=== PATIENT | female | born 1955 | race Caucasian/White ===

== ENCOUNTER 2021-12-30 13:34 | Outpatient (CLI) | payer MEDICARE, SELFPAY ==
--- NOTE | 2021-12-30 13:40 | CRLHL7_ITS ---
For Patients: As a result of the Cures Act, medical imaging exams and procedure reports are released immediately into your electronic medical record. You may view this report before your referring provider. If you have questions, please contact your health care provider. BILATERAL SCREENING MAMMOGRAM WITH COMPUTER-AIDED DETECTION AND TOMOSYNTHESIS TECHNIQUE: CC and MLO views were obtained. These mammographic images have been obtained using full-field digital technique. These mammographic images were interpreted with the benefit of computer-aided detection. Breast Tomosynthesis was used in this interpretation. COMPARISON FILM: 12/14/2020, 12/11/2019, 11/07/2018. FINDINGS: The breasts are heterogeneously dense, which may obscure small masses. IMPRESSION: There is no radiographic evidence for malignancy. ASSESSMENT: BI-RADS Category 2: Benign RECOMMENDATION: Routine screening mammogram in 1 year. A lay language report of this examination will be provided to the patient. Melissa Keene M.D. Diagnostic/Breast Radiologist [email or web address] [email or web address]/[email or web address] PT/Dictated by: Melissa Keene MD @ 01/02/2022 8:43:00 AM SLAVA/Dictated by: Melissa Keene MD @ 01/02/2022 8:43:00 AM (Electronically Signed)
== END 2021-12-30 13:35 | disposition home or self-care (01) ==
LOC: MAMMO 13:36
PROVIDERS: Visit Provider Internal Medicine
DX: Z12.31 Encounter for screening mammogram for malignant neoplasm of breast (principal); R92.2 Inconclusive mammogram
CPT/HCPCS: 77063; 77067

== ENCOUNTER 2022-04-10 11:47 | Outpatient (REF) | payer MEDICARE, SELFPAY ==
[2022-04-10 12:03] LABS: Ammonia* < 9.0 umol/L (13.1-30.0)
== END 2022-04-10 11:48 | disposition home or self-care (01) ==
LOC: NPINS 11:47
PROVIDERS: Visit Provider Psychiatry & Neurology Neurology
DX: R25.1 Tremor, unspecified (principal)
CPT/HCPCS: 82140

== ENCOUNTER 2022-04-12 07:04 | Outpatient (CLI) | payer MEDICARE, SELFPAY ==
--- NOTE | 2022-04-12 07:15 | CRLHL7_ITS ---
For Patients: As a result of the 21st Century Cures Act, medical imaging exams and procedure reports are released immediately into your electronic medical record. You may view this report before your referring provider. If you have questions, please contact your health care provider. INDICATION: Tremors. Parkinson`s. TECHNIQUE: Sagittal T1 axial FLAIR T2 diffusion-weighted and susceptibility weighted images of the brain. FINDINGS: Ventricles are normal in size and configuration. There is no evidence of recent ischemic infarction. There are no areas of diffusion restriction. There is no evidence of intracranial hemorrhage. There is a small well-defined extra-axial mass (2.0 cm x 1.5 cm ) at the left posterior frontal convexity with mild mass effect on the left middle frontal gyrus. This extra-axial mass is homogeneous isointense to brain on T1, T2 and slightly brighter than brain on FLAIR sequence most likely a small meningioma. There is no brain edema. Mild mass effect. Basal ganglia structures are unremarkable the brainstem and cerebellum are unremarkable. An additional finding is a well-circumscribed lobulated mass in the retropharyngeal space to the right of midline at the level of the nasopharynx and oropharynx. This mass measures 2.7 cm cephalocaudal by 2.2 cm transverse by 1.9 cm AP. It appears to be submucosal, closely associated with the anterior margin of the longus coli muscle and anteromedial to the internal carotid artery. Appears to be a vessel along its posterior medial margin. There is no evidence of mastoid or middle ear effusion. It probably represents a schwannoma or an enlarged retropharyngeal lymph node. There is opacification of the sphenoid sinus with low T2 and increased T1 signal suggesting chronic inspissated secretions or possible fungal sinus disease. IMPRESSION: 1. No evidence of acute ischemic infarction or intracranial hemorrhage. 2. 2.0 cm. presumed meningioma at the left posterolateral frontal convexity with mild mass effect. No brain edema. 3. Well-circumscribed mass in right retropharyngeal space versus parapharyngeal space. Schwannoma versus enlarged retropharyngeal lymph node. Comparison to any prior CT or MRI scans would be useful if available. Otherwise follow-up MRI in 4-6 months time to assess for stability and ENT consultation recommended. 4. Opacified sphenoid sinus consistent with chronic sinusitis. 5. Gadolinium-enhanced MRI images recommended for further evaluation of finding #2 and #3. Dictated by Buddy Cervantes MD @ 04/12/2022 10:54:19 AM (Electronically Signed)
== END 2022-04-12 07:05 | disposition home or self-care (01) ==
PROVIDERS: PCP Internal Medicine; Visit Provider Psychiatry & Neurology Neurology
DX: G20 Parkinson's disease (principal); D32.0 Benign neoplasm of cerebral meninges; R25.1 Tremor, unspecified; J32.3 Chronic sphenoidal sinusitis
CPT/HCPCS: 70551

== ENCOUNTER 2022-09-12 07:28 | Outpatient (CLI) | payer MEDICARE, SELFPAY | END 2022-09-12 07:29 | disposition home or self-care (01) | LOC: NFLDREF 09-13 07:00 | PROVIDERS: PCP Internal Medicine; Referring Provider Internal Medicine; Visit Provider Internal Medicine | DX: E03.9 Hypothyroidism, unspecified (principal); Z13.21 Encounter for screening for nutritional disorder; G20 Parkinson's disease; M85.80 Other specified disorders of bone density and structure, unspecified site; R00.1 Bradycardia, unspecified | CPT/HCPCS: 82306; 84443 ==

== ENCOUNTER 2022-11-01 13:51 | Outpatient (CLI) | payer MEDICARE, SELFPAY ==
--- NOTE | 2022-11-01 14:00 | CRLHL7_ITS ---
For Patients: As a result of the Century Cures Act, medical imaging exams and procedure reports are released immediately into your electronic medical record. You may view this report before your referring provider. If you have questions, please contact your health care provider. DXA BONE MINERAL DENSITY STUDY Reason for exam: Other specified disorders of bone density. Current height (in): 63. Weight (lb): 136. Menopause age: 47. Ethnicity: White. 1. Have you had a previous hip or vertebral fracture? No. 2. Have you had any fractures during your adult life which did not result from significant trauma (e.g., auto accident)? No. 3. Did either of your parents have a hip fracture? No. 4. Do you smoke? No. 5. Have you ever taken Glucocorticoids? No. 6. Do you have rheumatoid arthritis? No. 7. Do you have secondary osteoporosis? No. 8. Do you drink 3 or more alcoholic drinks per day? No. 9. Are you being treated for osteoporosis? Yes. 10. Have you ever taken any of the following medications: Actonel, Evista, Fosamax, Miacalcin, Reclast, Boniva, Forteo, HRT (i.e., estrogen/hormone therapy), Protelos, Prolia, Vitamin D, Calcium, other ??? please specify. ANSWER: Yes, Fosamax. 11. Do you have any of the following medical conditions: Anorexia or bulimia, asthma or emphysema, end stage renal disease, hyperparathyroidism, any seizure disorders, cancer, inflammatory bowel diseases, hysterectomy, other ??? please specify. ANSWER: No. 12. What was your maximum height (inches)? 63. 13. Do you perform weight bearing exercise regularly? Yes. 14. Do you regularly consume dairy products? Yes. 15. Do you drink caffeinated beverages? Yes. If female: 16. At what age did your period start? 16. 17. Are you premenopausal? No. 18. How many full-term pregnancies have you had? 2. 19. Have you ever missed your period for more than 6 months in a row (not including or menopause)? Yes. TECHNIQUE: Bone mineral density study was performed using the [employer] Wi. FINDINGS: The results of the study expressed as bone mineral density (BMD) are as follows: Lumbar spine L1 to L4: BMD: 0.871 g/cm2. T-score: -1.6. Z-score: 0.3 Neck Left: BMD: 0.669 g/cm2. T-score: -1.6. Z-score: 0.0 Right: BMD: 0.714 g/cm2. T-score: -1.2. Z-score: 0.4 Total Left: BMD: 0.871 g/cm2. T-score: -0.6. Z-score: 0.7 Right: BMD: 0.975 g/cm2. T-score: 0.3. Z-score: 1.6 IMPRESSION: Osteopenia. *Comparison exams done prior to 09/2019 were performed on different unit, [employer]. COMPARISON: Compared with scan of 11/24/2020, the bone mineral density has increased by 0.7 percent at the spine and increased by 7.2 percent at the hip. Compared with scan of 10/23/2016, the bone mineral density has increased by 6.6 percent at the spine and increased by 6.5 percent at the hip. Fabian Sky M.D. Diagnostic Radiologist [email or web address] TIMO/haley de leon/Dictated by: Fabian Sky MD @ 11/01/2022 3:45:00 PM (Electronically Signed)
== END 2022-11-01 13:52 | disposition home or self-care (01) ==
LOC: RAD 13:52
PROVIDERS: PCP Internal Medicine; Visit Provider Internal Medicine
DX: M85.851 Other specified disorders of bone density and structure, right thigh (principal); M85.852 Other specified disorders of bone density and structure, left thigh; M85.89 Other specified disorders of bone density and structure, multiple sites
CPT/HCPCS: 77080

== ENCOUNTER 2023-01-08 11:21 | Outpatient (CLI) | payer MEDICARE, SELFPAY ==
--- NOTE | 2023-01-08 11:30 | CRLHL7_ITS ---
For Patients: As a result of the Century Cures Act, medical imaging exams and procedure reports are released immediately into your electronic medical record. You may view this report before your referring provider. If you have questions, please contact your health care provider. BILATERAL SCREENING MAMMOGRAM WITH COMPUTER-AIDED DETECTION AND TOMOSYNTHESIS TECHNIQUE: CC and MLO views were obtained. These mammographic images have been obtained using full-field digital technique. These mammographic images were interpreted with the benefit of computer-aided detection. Breast tomosynthesis was used in this interpretation. COMPARISON FILM: 12/30/21, 12/14/20, 12/11/19. FINDINGS: There are scattered areas of fibroglandular density. IMPRESSION: There is no radiographic evidence for malignancy. ASSESSMENT: BI-RADS Category 1: Negative RECOMMENDATION: Routine screening mammogram in 1 year. A lay language report of this examination will be provided to the patient. FABIAN CARDENAS M.D. Diagnostic Radiologist [email or web address] Transcribed: 4:[address]/Dictated by: Fabian Cardenas MD @ 01/08/2023 12:23:00 PM (Electronically Signed)
== END 2023-01-08 11:22 | disposition home or self-care (01) ==
PROVIDERS: PCP Internal Medicine; Visit Provider Internal Medicine
DX: Z12.31 Encounter for screening mammogram for malignant neoplasm of breast (principal)
CPT/HCPCS: 77063; 77067

== ENCOUNTER 2023-09-20 15:18 | Outpatient (CLI) | payer MEDICARE, SELFPAY ==
--- OUTSIDE RECORDS SUMMARY | 2023-09-24 14:37 | XMS_ITS | Continuity of Care Document ---
Author Organization [facility] Address [address] [place] [address] Phone Care Team Providers Care Breakfast Supervisor Name Role Phone Lissette Lee MD Unavailable Unavailable Allergies, Adverse Reactions, Alerts Substance Reaction Status Criticality No Known allergies Medications Medication Instructions Dosage Effective Dates (start - stop) Status Comments ursodiol 300 mg capsule 2 tablets twice daily - Active Tirosint 75 mcg capsule take 1 capsule by oral route every day 75 MCG - Active Procedures Procedure Date Office/Outpatient Visit, New Subsequent Hospital Care Initial Hospital Care Advance Directives Directive Yes / No Effective Date File Name No Information Encounters Encounter Description Practice Location Reason(s) For Visit Diagnoses Date Provider Providers Copied on Encounter [facility] , [address], [place], [address], [place] tel:[phone] [facility] , No Information 4 Jesus Mclaughlin. [facility] [address], [place], [address], [place]. tel:[phone] Office/Outpa tient Visit, New [facility] , [address], [place], [address], [place] tel:[phone] [facility] , suspected vasculitis (chief complaint) Arteritis, unspecifiedO ther specified disorders of biliary tract 4 Jesus Mclaughlin. [facility] [address], [place], [address], [place]. tel:[phone] Referring Provider: Lissette Adames, [facility] [address], [place], [address]. tel:[phone] Subsequent Hospital Care [facility] , [address], [place], [address], [place] tel:[phone] [facility] No Information 4 Moi Ramirez. [facility] [address], [place], [address], [place]. tel:[phone] Referring Provider: Ashley Avila, [facility] [address], [place], [address]. tel:[phone] Initial Hospital Care [facility] , [address], [place], [address], [place] tel:[phone] [facility] No Information 4 Jesus Mclaughlin. [facility] [address], [place], [address], [place]. tel:[phone] Referring Provider: Lissette Adames, [facility] [address], [place], [address]. tel:[phone] Family History Family Member Type Diagnosis Age At Onset No Information Payers Payer name Insurance type Covered libertarian ID Authorsteven lind(s) [facility] [id number] Social History Type Description Quantity Date Captured Comments Sex Female Smoking Status No Information Chief Complaint And Reason For Visit No Information Reason For Referral Reason For Referral No Information History Of Present Illness Encounter Date Complaint History Of Prese nt Illness No Information Functional Status Date Functional Assessmen t No Information Instructions Date Instruction Additional Infor mation No Information Assessments Type Assessment Date No Information Patient Care Teams Name Effective Dates (start - stop) Status Members No Information
--- OUTSIDE RECORDS SUMMARY | 2023-09-24 14:38 | XMS_ITS | Encounter Summary ---
Author Organization [facility] Address [address] [place] [address] Care Team Providers Care Certified Alcohol Counselor Name Role Phone Elsewhere, Pcp Primary Care Provider Unavailabl e Reason for Visit * Appointment Request (Routine) - Closed Specialty Diagnoses / Procedures Referred By Magno t Referred To Contact Neurology Diagnoses Parkinsonism (HCC) Referral ID Status Reason Start Date Expiration Date Visits Re quested Visits Authorized [id number] Closed 04/04/2023 04/03/2024 1 1 Encounter Details Date Type Department Care Team (Latest Contact Info) Description 07/24/2023 2:30 PM CDT Comprehensive Visit Department of Neurology in [place], [place] [address] [place] [phone] Riri Harding M.D., Ph.D. [address] [place] [phone] Parkinsonism Unspecified (HCC) (Primary Dx) Social History Tobacco Use Types Packs/Day Years Used Date Smoking Tobacco: Never Passive Smoke Exposure: Past Smokeless Tobacco: Never Passive Exposure Comments:Ch ildhood exposure. Alcohol Use Standard Drinks/Week Comments Not Currently 0 (1 standard drink = 0.6 oz pur e alcohol) [facility] Utilities Answer Date Recorded In the past 12 months has e electric, gas, oil, or water company threatened to shut off services in your home? No 07/20/2023 Humiliation, Afraid, Rape, and Kick questionnair e Answer Date Recorded Within the last year, have y ou been afraid of your partner or ex-partner? No 08/26/2022 Within the last year, have y ou been humiliated or emotionally abused in other ways by your partner or ex-partner? No Within the last year, have y ou been kicked, hit, slapped, or otherwise physically hurt by your partner or ex-partner? No 08/26/2022 Within the last year, have y ou been raped or forced to have any kind of sexual activity by your partner or ex-partner? No 08/26/2022 Social Connection and Isolat ion Panel [NHANES] Answer Date Recorded In a typical week, how many times do you talk on the phone with family, friends, or neighbors? Once a week 04/04/2022 How often do you get togethe r with friends or relatives? Once a week 04/04/2022 How often do you attend chur ch or zoroastrian services? More than 4 times per year 04/04/2022 Do you belong to any clubs o r organizations such as bahai groups, unions, fraternal or athletic groups, or school groups? Yes 04/04/2022 How often do you attend meet ings of the clubs or organizations you belong to? More than 4 times per year 04/04/2022 Are you , , di vorced, , never , or living with a partner? 04/04/2022 AUDIT-C Answer Date Recorded Q1: How often do you have a drink containing alc ohol? Never 04/04/2022 Average Number of Drinks Not on file 023 Frequency of Binge Drinking Not on file 05/2022 Overall Financial Resource Strain (CARDIA) Answe r Date Recorded How hard is it for you to pa y for the very basics like food, housing, medical care, and heating? Not hard at all 08/26/2022 [facility] [place] of Occupat ional Health - Occupational Stress Questionnaire Answer Date Recorded Do you feel stress - tense, restless, nervous, or anxious, or unable to sleep at night because your mind is troubled all the time - these days? Only a little 04/04/2022 Exercise Vital Sign Answer Date Recorde d On average, how many days pe r week do you engage in moderate to strenuous exercise (like a brisk walk)? 7 days 07/20/2023 On average, how many minutes do you engage in exercise at this level? 40 min 07/20/2023 Hunger Vital Sign Answer Date Recorded Within the past 12 months, y ou worried that your food would run out before you got the money to buy more. Never true 07/20/19 24 Within the past 12 months, t he food you bought just didn't last and you didn't have money to get more. Never true 07/20/2023 PRAPARE - Transportation Answer Date Re corded In the past 12 months, has l ack of transportation kept you from medical appointments or from getting medications? No 07/01 In the past 12 months, has l ack of transportation kept you from meetings, work, or from getting things needed for daily living? No 07/20/2023 Nutrition Answer Date Recorded On average, how many serving s of fruits and vegetables do you eat per day (serving size is equal to 1 cup or approximately the size of a tennis ball)? 0-2 07/20/2023 Dental Answer Date Recorded Dental: Regular Dentist Yes 03/29/20 Employment Answer Date Recorded Employment status Retired 07/20/2023 Housing Stability Answer Date Recorded What is your living situation today? [facility] 07/20/2023 Education Answer Date Recorded What is the highest level of school you have completed or the highest degree you have received? Bachelor's degree (e.g., BA, AB, BS) 01/13/2019 Sex and Gender Information Value Date Recorded Sex Assigned at Female 01/10/2019 8:43 PM CDT Gender Identity Female 01/10/2019 8:43 PM CDT Sexual Orientation Not on file documented as of this encounter Last Filed Vital Signs Vital Sign Reading Time Taken Comments Blood Pressure 110/69 07/24/2023 2:23 PM CDT Pulse 68 07/24/2023 2:23 PM CDT Temperature - - Respiratory Rate - - Oxygen Saturation - - Inhaled Oxygen Concentration - - Weight 60.2 kg (132 lb 13.2 oz) 07/24/2023 2:23 PM CDT Height 161.8 cm (5' 3.7) 07/24/2023 2:23 PM CDT Body Mass Index 23.01 07/24/2023 2:23 PM CDT documented in this encounter H&P Notes * Riri Harding M.D., Ph.D. - 07/24/2023 2:30 PM CDT Mrs. Yoder came for evaluation of Parkinson's disease. She was diagnosed with that condition and I later found that this diagnosis was made about 15 months ago that I later found, by Dr. Steinberg in [place]. He wrote that at that time, she had a hand tremor and micrographia with a normal gait and no rigidity. She was started on one 25/100 immediate release carbidopa levodopa tablets 3 times aday, which she typically takes with meals. She has noted benefit in the tremor has improved but nottotally resolved. I saw in the note from Dr. Steinberg that she had an uncle with Parkinson's disease. Examination: The front loader residential driver recorded her standing blood pressure and obtain a value of 110/69 with a pulse of 68. I did a focused exam. She would normal facial animation and speech. Eye movements were intact testing both pursuit and voluntary gaze. Limb tone was normal in the 4 extremities. She had a fleeting rest tremor in the right great thumb but I did not see tremor elsewhere. There was no evidence of appendicular ataxia or apraxia. I watched her walk in the hallway and her gait was normal. She had no trouble walking in tandem. There were no dyskinesia. Impression: #1 Parkinson's disease Mrs. Yoder has Parkinson's disease based upon her described symptoms & the note from Dr. Steinberg from April of 2022 plus the fact that she has benefitted from carbidopa levodopa. At this point in time, she is nearly normal. Nonetheless, I had discussion about carbidopa levodopa use and made the following points. Carbidopa levodopa must be taken on an empty stomach to allow passage into the brain. Specifically,it must be taken at least 1 hour before meals and at least 2 hours after the end of meals. She seems to be doing very well on just a single carbidopa levodopa tablet 3 times a day. I gave him my handout for dose escalation but in her case, she is nearly normal at present and so she does not need to escalate the dose any further. This may income tax return preparer to be her dose going forward and she may not need anymore per dose over the years. We will see. She awakens during the night with an uncomfortable feeling in her legs that probably has been present for a few years. This sounded a little bit like restless legs symptoms. She will lie awake for couple of hours when that starts. She does take her 3rd and last carbidopa levodopa dose of the day inthe late evening. I told her that she could add a 4th dose and have that on her nightstand with a glass of water to take when she awakens after midnight. That will take an hour to kick in but that might kick in improve a feeling in her legs. She could then return to sleep. We also discussed constipation. I think the simplest thing for her is to use MiraLax which is already on her medication list. However, she should take enough so that it stimulate a bowel movement within the next 20-30 minutes. At present, 1 serving does not do that. Hence, the next time she uses this she should mix up 2 servings and drink 1-1/2 and see if that is sufficient for a bowel movement. If not, the next day she can mix up 2 servings and drink both of those. We discussed the benefits of ongoing aerobic-type exercise. There is substantial scientific evidence that strongly argues for regular exercise slowing Parkinson's disease progression. documented in this encounter Plan of Treatment Upcoming Encounters Date Type Department Care Team (Latest Contact Info) Description 09/25/2023 2:00 PM CDT Clinical Communication Virtual Review in [place], [place] 200 [place] [phone] 09/27/2023 9:00 AM CDT Appointment Department of Laboratory Medicine and Pathology, [facility], in [place], [place] [address] [place] [phone] Jonathan Richardson M.D. [address] [place] [phone] 09/27/2023 3:00 PM CDT Office Visit Division of Hematology in [address] [phone] Jonathan Richardson M.D. [address] [place] [address] documented as of this encounter Visit Diagnoses Diagnosis Parkinsonism Unspecified (HCC)- Primary documented in this encounter Care Teams Certified Alcohol Counselor Relationship Specialty Start Date End Date Elsewhere, Pcp PCP - General Internal Medicine 12/28/22 documented as of this encounter"
--- OUTSIDE RECORDS SUMMARY | 2023-09-24 14:38 | XMS_ITS | Clinical Summary ---
Author Organization [facility] Address [address] [place] [address] Care Team Providers Care Computer Programming Professor Name Role Phone Elsewhere, Pcp Primary Care Provider Unavailabl e Source Comments Patient records contain information from all sites at [facility]. For routine questions regarding patient records, call [phone] during business hours, M-F 8:00 AM - 5:00 PM Central Time. Record requests for emergency care only can be directed to [phone] at any time.[facility] Allergies No known active allergies Medications Medication Sig Dispensed Refills Start Date End Date Status acetaminophen (TYLENOL) 500 mg tablet Take 500-1,000 mg by mouth every 6 (six) hours as needed for pain. 08/19/2014 Active levothyroxine (SYNTHROID, LEVOTHROID) 75 mcg tablet Take 1 tablet by mouth every morning. 08/19/2014 Active melatonin 10 mg tablet Take 10 mg by mouth at bedtime as needed. Active psyllium husk (METAMUCIL ORAL) Take 1 Dose by mouth daily. Mix 1 tsp of powder with water daily. Active polyethylene glycol (Miralax) 17 gram/dose oral powder Take 17 g by mouth as needed. 04/02/2023 Active folic acid-vitamin B6,B12 (FOLBEE) 2.5-25-1 mg per tablet To prevent homocysteine. Take one tab daily 90 tablet 3 07/24/2023 Active carbidopa-levodopa (SINEMET) 25-100 mg per tablet Take 1 tablet by mouth 3 (three) times a day. 270 tablet 3 08/09/2023 5 Active ursodioL (ActigalL) 300 mg capsuleIndications :Cholestasis Intrahepatic (HCC) take one capsule by mouth three times daily 270 capsule 09/20/2023 Active ursodioL (ACTIGALL) 300 mg capsuleIndications :Cholestasis Intrahepatic (HCC) Take 1 capsule (300 mg total) by mouth 3 times a day. 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 Med Refill 08/08/2023 Refill [facility] Riri Harding M.D., Ph.D. Med Refill 08/06/2023 7:09 AM CDT - 08/06/2023 11:59 PM CDT Hospital Encounter Department of Laboratory Medicine and Pathology, [facility], in [place], [place] [address] [place] [phone] Jonathan Richardson M.D. Gammopathy Monoclonal Nonspecific Discharge Disposition: Home or Self Care 07/24/2023 2:30 PM CDT Comprehensive Visit Department of Neurology in [place], [place] [address] [place] [phone] Riir Harding M.D., Ph.D. Parkinsonism Unspecified (HCC) (Primary Dx) 07/23/2023 7:45 AM CDT Clinical Communication Virtual Review in [place], [place] 200 [place] [address] Pre-visit Intake 06/24/2023 Refill Division of Gastroenterology in [place], [place] [address] [place] [phone] Buddy Ceja M.D. Med Refill from Last 3 Months Family History Medical History Relation Name Comments Uterine cancer Mother Melanoma Sister Relation Name Status Comments Mother Sister Social History Tobacco Use Types Packs/Day Years Used Date Smoking Tobacco: Never Passive Smoke Exposure: Past Smokeless Tobacco: Never Tobacco Cessation:Counseling Given: Not Answered Passive Exposure Comments:Childhood exposure. Alcohol Use Standard Drinks/Week Comments Not Currently 0 (1 standard drink = 0.6 oz pur e alcohol) [facility] Utilities Answer Date Recorded In the past 12 months has e [employer], gas, oil, or water [employer] threatened to shut off services in your [...] often do you attend chur ch or worship services? More than 4 times per year 04/04/2022 Do you belong to any clubs o r organizations such as confucianist groups, unions, fraternal or athletic groups, or [...] and heating? Not hard at all 08/26/2022 [facility] - Occupational Stress [...] your living situation today? [facility] 07/20/2023 Education Answer Date Recorded What is the highest level of school you have completed or the highest degree you have received? Bachelor's degree (e.g., BA, AB, BS) 01/13/2019 Sex and Gender Information Value Date Recorded Sex Assigned at Female 01/10/2019 8:43 PM CDT Gender Identity Female 01/10/2019 8:43 PM CDT Sexual Orientation Not on file Last Filed Vital Signs Vital Sign Reading Time Taken Comments Blood Pressure 110/69 07/24/2023 2:23 PM CDT Pulse 68 07/24/2023 2:23 PM CDT Temperature 36.4 ??C (97.5 ??F) 12/28/2022 1:00 PM CD T Respiratory Rate 16 12/28/2022 1:00 PM CDT Oxygen Saturation 97% 12/28/2022 1:00 PM CDT Inhaled Oxygen Concentration - - Weight 60.2 kg (132 lb 13.2 oz) 07/24/2023 2:23 PM CDT Height 161.8 cm (5' 3.7) 07/24/2023 2:23 PM CDT Body Mass Index 23.01 07/24/2023 2:23 PM CDT Plan of Treatment Upcoming Encounters Date Type Department Care Team (Latest Contact Info) Description 09/25/2023 2:00 PM CDT Clinical Communication Virtual Review in [place], [place] 200 [place] [phone] 09/27/2023 9:00 AM CDT Appointment Department of Laboratory Medicine and Pathology, [facility], in [place], [place] [address] [place] [phone] Jonathan Richardson M.D. [address] [place] [phone] 09/27/2023 3:00 PM CDT Office Visit Division of Hematology in [place], [place] [address] [place] [phone] Jonathan Richardson M.D. [address] [place] [phone] Health Maintenance Due Date Last Done Comments Bone Density Scan (Osteoporo sis Screen) 1956 CT Colonography 1955 Cologuard 1956 FIT 1956 Thyroid Stimulating Hormone (TSH) test for thyroid function 08/20/2015 08/19/2014, 06/15/2014 Mammogram 07/03/2017 07/03/2016 (Perf ormed elsewhere), 07/12/2015 (Performed elsewhere), 07/31/2013 (Performed elsewhere) Depression Screening (Annual PHQ-2) 04/02/2023 Fall Risk Screen (Annual) 04/02/2023 COVID-19 Vaccine (2022-2 4 season) 2023 04/13/2023, 01/25/2022, 03/09/2021, Additional history exists Colonoscopy 07/01/2024 07/01/2014 (Perf ormed elsewhere) Colorectal Cancer Screening 07/01/2024 Fasting Glucose for Diabetes Screening 01/24/2026 01/24/2023, 04/07/2022, 12/07/2020, Additional history exists DTaP,Tdap,and Td Vaccines (3 - Td or Tdap) 11/15/2030 11/15/2020, 07/04/2010, 05/27/2007 Hepatitis A Vaccines Completed 04/09/2009, 11/03/2008, 09/10/2008 Hepatitis B Vaccines Completed 04/09/2009, 04/09/2009, 11/03/2008, Additional history exists Zoster Vaccines Completed 09/13/2019, 05/04, 10/17/2016 Cervical Cancer Screening Discontinued 2020, 07/03/2016 (Performed elsewhere), 10/21/2015, Additional history exists Pneumococcal vaccine (65+ years) Completed 10/20/19, 09/12/2021 Influenza Vaccine Completed 04/13/2023, , 03/09/2021, Additional history exists Medical Devices Explanted Type Area Communications Media Professor Device Identifier Shelf Expiration Date Model / Serial / Lot Clp Apr Melissa Ralph 9.0 - [id number] Explanted:Qty : 1 on 12/28/2022 at [facility] Hardware e.g. pins/screws/ rods [employer] [id number] 09/30/2027 [id number] / / [id number] Clp Apr Anthony Loree Dowling [facility] 9.75 - [id number] Explanted:Qty : 1 on 12/28/2022 at [facility] Hardware e.g. pins/screws/ rods [employer] [id number] / / Procedures Procedure Name Priority Date/Time Associated Diagnosis Comments BASIC METABOLIC PANEL, S/P Routine 01/24/2023 9:05 AM CDT Cholestasis Intrahepatic THYROID FUNCTION CASCADE, S Routine 08/19/2014 9:05 AM CDT from Last 3 Months or Most Recently Relevant to Health Maintenance Results * Basic Metabolic Panel (01/24/2023 9:05 AM CDT) Potassium, S 4.7 3.6 - 5.2 mmol/L 01/24/2023 10:10 AM CDT DTL Sodium, S 141 135 - 145 mmol/L 01/24/2023 10:10 AM CDT DTL Chloride, S 105 98 - 107 mmol/L 01/24/2023 10:10 AM CDT DTL Bicarbonate, S 27 22 - 29 mmol/L 01/24/2023 10:10 AM CDT DTL Anion Gap 9 7 - 15 01/24/2023 10:10 AM CDT DTL BUN (Blood Urea Nitrogen), S 11 6 - 21 mg/dL 01/24/2023 10:10 AM CDT DTL Creatinine 0.83 0.59 - 1.04 mg/dL 01/24/2023 10:10 AM CDT DTL Estimated GFR (eGFR) 78 >=60 mL/min/BSA 01/24/2023 10:10 AM CDT DTL Comment: Estimated GFR calculated using the 2020 CKD_EPI creatinine equation. Calcium, Total, S 9.7 8.8 - 10.2 mg/dL 01/24/2023 10:10 AM CDT DTL Glucose, S 78 70 - 140 mg/dL 01/24/2023 10:10 AM CDT DTL Blood (Blood, Venous) 01/24/2023 9:05 AM CDT 01/24/2023 9:48 AM CDT Buddy Ceja M.D. LAB BLOOD ADD-ON [facility] [address] [place] [address], [facility] DTL [facility] [address] [place] [address] * Thyroid Function [place] (08/19/2014 9:05 AM CDT) TSH, Sensitive 0.5 0.3 - 4.2 MIU/L [facility] 08/19/2014 9:05 AM CDT 08/19/2014 9:05 AM CDT Jori Harley LAB BLOOD ADD-ON [facility] [address] [place] [address], [facility] from Last 3 Months or Most Recently Relevant to Health Maintenance Care Teams Computer Programming Professor Relationship Specialty Start Date End Date Elsewhere, Pcp PCP - General Internal Medicine 12/28/22
--- OUTSIDE RECORDS SUMMARY | 2023-09-24 14:38 | XMS_ITS | Encounter Summary ---
Author Organization [facility] Address [address] [place] [phone] Care Team Providers Care Academic Support Coordinator Name Role Phone Elsewhere, Pcp Primary Care Provider Unavailabl e Encounter Details Date Type Department Care Team (Latest Contact Info) Description 08/06/2023 7:09 AM CDT - 08/06/2023 11:59 PM CDT Hospital Encounter Department of Laboratory Medicine and Pathology, [facility] in [place], [place] [address] [place] [phone] Jonathan Richardson M.D. [address] [place] [phone] Gammopathy Monoclonal Nonspecific Discharge Disposition: Home or Self Care Social History Tobacco Use Types Packs/Day Years Used Date Smoking Tobacco: Never Passive Smoke Exposure: Past Smokeless Tobacco: Never Passive Exposure Comments:Ch ildhood exposure. Alcohol Use Standard Drinks/Week Comments Not Currently 0 (1 standard drink = 0.6 oz pur e alcohol) [facility] Utilities Answer Date Recorded In the past 12 months has [employer], gas, oil, or water [employer] threatened to shut off services in your [...] often do you attend chur ch or baptist services? More than 4 times per year 04/04/2022 Do you belong to any clubs o r organizations such as voodoo groups, unions, fraternal or athletic groups, or [...] and heating? Not hard at all 08/26/2022 [facility] Occupat ional Health - Occupational Stress [...] your living situation today? I have a [facility] place to live 07/20/2023 Education Answer Date [...] on file documented as of this encounter Medications at Time of Discharge Medication Sig Dispensed Refills Start Date End Date acetaminophen (TYLENOL) 500 mg tablet Take 500-1,000 mg by mouth every 6 (six) hours as needed for pain. 08/19/2014 folic acid-vitamin B6,B12 (FOLBEE) 2.5-25-1 mg per tablet To prevent homocysteine. Take one tab daily 90 tablet 3 07/24/2023 levothyroxine (SYNTHROID, LEVOTHROID) 75 mcg tablet Take 1 tablet by mouth every morning. 08/19/2014 melatonin 10 mg tablet Take 10 mg by mouth at bedtime as needed. polyethylene glycol (Miralax) 17 gram/dose oral powder Take 17 g by mouth as needed. 04/02/2023 psyllium husk (METAMUCIL ORAL) Take 1 Dose by mouth daily. Mix 1 tsp of powder with water daily. carbidopa-levodopa (SINEMET) 25-100 mg per tablet Take 1 tablet by mouth 3 (three) times a day. 270 tablet 3 07/13/2022 08/08/2023 ursodioL (ACTIGALL) 300 mg capsuleIndications:Chol estasis Intrahepatic (HCC) Take 1 capsule (300 mg total) by mouth 3 times a day. 270 capsule 06/27/2023 09/20/2023 documented as of this encounter Plan of Treatment Upcoming Encounters Date Type Department Care Team (Latest Contact Info) Description 09/25/2023 2:00 PM CDT Clinical Communication Virtual Review in [place], [place] 200 [place] [phone] 09/27/2023 9:00 AM CDT Appointment Department of Laboratory Medicine and Pathology, [facility] in [place], [place] [address] [place] [phone] Jonathan Richardson M.D. [address] [place] [phone] 09/27/2023 3:00 PM CDT Office Visit Division of Hematology in [place], [place] [address] [place] [phone] Jonathan Richardson M.D. [address] [place] [phone] Scheduled Orders Name Type Priority Associated Diagnoses Orde r Schedule Electrophoresis, Protein, 24 hour, Urine Lab Routine Gammopathy Monoclonal Nonspecific Once for 1 Occurrences starting 08/06/2023 until 08/06/2023 documented as of this encounter Visit Diagnoses Diagnosis Gammopathy Monoclonal Nonspecific documented in this encounter Care Teams Academic Support Coordinator Relationship Specialty Start Date End Date Elsewhere, Pcp PCP - General Internal Medicine 12/28/22 documented as of this encounter
--- OUTSIDE RECORDS SUMMARY | 2023-09-24 14:38 | XMS_ITS ---
Author Organization [facility] Address [address] [place] [address] Care Team Providers Care Cook Night Name Role Phone Unavailable Unavailable Unavailable Surgery Details Not on file Complications Check Surgery Details section. Procedure Estimated Blood Loss Check Surgery Details section. Procedure Findings Check Surgery Details section. Procedure Specimens Taken Check Surgery Details section.
--- OUTSIDE RECORDS SUMMARY | 2023-09-24 14:38 | XMS_ITS | Encounter Summary ---
Author Organization [facility] Address [address] [place] [phone] Care Team Providers Care Second Class Welder Name Role Phone Elsewhere, Pcp Primary Care Provider Unavailabl e Reason for Visit * Reason Comments Med Refill Encounter Details Date Type Department Care Team ([facility] st Contact Info) Description 06/24/2023 Refill Division of Gastroenterology in [place], [place] [address] [place] [phone] Buddy Ceja M.D. [address] [place] [phone] Med Refill Social History Tobacco Use Types Packs/Day Years Used Date Smoking Tobacco: Never Smokeless Tobacco: Never Humiliation, Afraid, Rape, and Kick questionnair e [...] often do you attend chur ch or zoroastrianism services? More than 4 times per year 04/04/2022 Do you belong to any clubs o r organizations such as baptist groups, unions, fraternal or athletic groups, or [...] and heating? Not hard at all 08/26/2022 [facility] Occupat ional Health - Occupational [...] to strenuous exercise (like a brisk walk)? 5 days 04/04/2022 On average, how many minutes do you engage in exercise at this level? 40 min 04/04/2022 Hunger Vital Sign Answer Date Recorded Within the past 12 months, y ou worried that your food would run out before you got the money to buy more. Never true 08/27/19 23 Within the past 12 months, t he food you bought just didn't last and you didn't have money to get more. Never true 08/26/2022 PRAPARE - Transportation Answer Date Re corded In the past 12 months, has l ack of transportation kept you from medical appointments or from getting medications? No 08/01 In the past 12 months, has l ack of transportation kept you from meetings, work, or from getting things needed for daily living? No 08/26/2022 Nutrition Answer Date Recorded Nutrition: EVOO Fat Source No 04/04 On average, how many serving s of fruits and vegetables do you eat per day (serving size is equal to 1 cup or approximately the size of a tennis ball)? 4-5 04/04/2022 Dental Answer Date Recorded Dental: Regular Dentist Yes 03/29/20 Employment Answer Date Recorded Employment status Retired 04/04/2022 Housing Stability Answer Date Recorded What is your living situation today? I have a [facility] place to live 08/26/2022 Education Answer Date Recorded What is the highest level of school you have completed or the highest degree you have received? Bachelor's degree (e.g., BA, AB, BS) 01/13/2019 Sex and Gender Information Value Date Recorded Sex Assigned at Female 01/10/2019 8:43 PM CDT Gender Identity Female 01/10/2019 8:43 PM CDT Sexual Orientation Not on file documented as of this encounter Plan of Treatment Upcoming Encounters Date Type Department Care Team (Latest Contact Info) Description 09/25/2023 2:00 PM CDT Clinical Communication Virtual Review in [place], [place] 200 [place] [phone] 09/27/2023 9:00 AM CDT Appointment Department of Laboratory Medicine and Pathology, [facility], in [place], [place] [address] [place] [phone] Jonathan Richardson M.D. [address] [place] [phone] 09/27/2023 3:00 PM CDT Office Visit Division of Hematology in [place], [place] [address] [place] [phone] Jonathan Richardson M.D. [address] [place] [phone] documented as of this encounter Visit Diagnoses Diagnosis Cholestasis Intrahepatic (HCC) documented in this encounter Care Teams Second Class Welder Relationship Specialty Start Date End Date Elsewhere, Pcp PCP - General Internal Medicine 12/28/22 documented as of this encounter
--- OUTSIDE RECORDS SUMMARY | 2023-09-24 14:38 | XMS_ITS | Encounter Summary ---
Author Organization [facility] Address [address] [place] [address] Care Team Providers Care Storage Battery Inspector And Tester Name Role Phone Elsewhere, Pcp Primary Care Provider Unavailabl e Reason for Visit * Reason Comments Med Refill Encounter Details Date Type Department Care Team (Latest Contact Info) Description 08/08/2023 Refill [facility] Riri Alvares M.D., Ph.D. [address] [place] [phone] Med Refill Social History Tobacco Use Types Packs/Day Years Used Date Smoking Tobacco: Never Passive Smoke Exposure: Past Smokeless Tobacco: Never Passive Exposure Comments:Ch ildhood exposure. Alcohol Use Standard Drinks/Week Comments Not Currently 0 (1 standard drink = 0.6 oz pur e alcohol) [facility] Utilities Answer Date Recorded In the past 12 months has [facility] [employer], gas, oil, or water [employer] threatened to shut off services in your [...] 04/04/2022 How often do you attend chur or jew services? More than 4 times per year 04/04/2022 Do you belong to any clubs o r organizations such as mosque groups, unions, fraternal or athletic groups, or [...] and heating? Not hard at all 08/26/2022 [facility] of Occupat ional Health - Occupational [...] your living situation today? I have a [employer] place to live 07/20/2023 Education Answer Date [...] on file documented as of this encounter Miscellaneous Notes * Telephone Encounter - Tarsha Valle, L.P.N. - 08/08/2023 1:52 PM CDT Pharmacy refill request for carbidopa levodopa 25-100 mg, 1 tablet 3 times daily Last filled 07/13/[address] Magui Steinberg, #[id number] with 3 refills Last visit 07.24.[address] Prabhu Harding Refill pended for review. Thank you. documented in this encounter Plan of Treatment Upcoming Encounters Date Type Department Care Team (Latest Contact Info) Description 09/25/2023 2:00 PM CDT Clinical Communication Virtual Review in [address] [phone] 09/27/2023 9:00 AM CDT Appointment Department of Laboratory Medicine and Pathology, [facility] in [place], [place] [address] [place] [phone] Jonathan Richardson M.D. [address] [place] [phone] 09/27/2023 3:00 PM CDT Office Visit Division of Hematology in [place], [place] [address] [place] [phone] Jonathan Richardson M.D. [address] [place] [phone] documented as of this encounter Visit Diagnoses Not on filedocumented in this encounter Care Teams Storage Battery Inspector And Tester Relationship Specialty Start Date End Date Elsewhere, Pcp PCP - General Internal Medicine 12/28/22 documented as of this encounter
--- OUTSIDE RECORDS SUMMARY | 2023-09-24 14:38 | XMS_ITS | Encounter Summary ---
Author Organization [facility] Address [address] [place] [address] Care Team Providers Care Vest Presser Name Role Phone Elsewhere, Pcp Primary Care Provider Unavailabl e Reason for Referral * Outpatient (Routine) - Authorized Specialty Diagnoses / Procedures Referred By Magno t Referred To Contact Hematology Oncology Jonathan Richardson M.D. [address] [place] [phone] [facility] Referral ID Status Reason Start Date Expiration Date V isits Requested Visits Authorized [id number] Authorized 03/07/2023 03/06/2026 1 1 LAINTS COORDINATOR Reason for Visit * Outpatient (Routine) - Closed Specialty Diagnoses / Procedures Referred By Contac t Referred To Contact Hematology Diagnoses Gammopathy Monoclonal Nonspecific Buddy Ceja M.D. [address] [place] [phone] [facility] Referral ID Status Reason Start Date Expiration Date Visits Re quested Visits Authorized [id number] Closed 01/29/2023 01/29/2024 1 1 Encounter Details Date Type Department Care Team (Late st Contact Info) Description 03/07/2023 10:30 AM COMPLAINTS COORDINATOR Telemedicine Division of Hematology in [place], [place] [address] [place] [phone] Jonathan Richardson M.D. [address] [place] [phone] Gammopathy Monoclonal Nonspecific (Primary Dx) Social History Tobacco Use Types [...] often do you attend chur ch or advent services? More than 4 times per year 04/04/2022 Do you belong to any clubs o r organizations such as pentecostalism groups, unions, fraternal or athletic groups, or [...] and heating? Not hard at all 08/26/2022 [facility] Occup[facility] ional [facility] - Occupational Stress [...] your living situation today? I have a [facility] place to live 08/26/2022 Education Answer [...] on file documented as of this encounter Consult Notes * Jonathan Richardson M.D. - 03/07/2023 10:30 AM CST SUBJECTIVE Consult conducted via real-time audio/video technology by Jonathan Richardson M.D. in [facility] to the patient in Patient's Home CHIEF COMPLAINT / REASON FOR VISIT Heaven Yoder is a 67 y.o. female presenting in referral from Buddy Ceja M.D. for consultation in the evaluation of monoclonal gammopathy HISTORY OF PRESENT ILLNESS 2013: Patient became ill with respiratory distress. She was intubated and found to have elevated LFTs. 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 She was not on immunosuppressive prior to the hospitalization but was placed on prednisone afterwards. IgM - 363, Hgb 11.7. 07/2014: Liver biopsy showed cholestatic hepatitis with mild leukopenia. 07/2022: Patient was having dysphagia. Imaging studies revealed a right neck mass. She had a lymph node FNA which was negative. 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 01/22: a monoclonal IgMk was detected. IgM - 1330, kappa - 6.80, lambda - 1.05, ratio - 6.48. Hgb -14.0. Creatinine - 0.83, alkaline phosphatase - 144. Urine protein - 209 mg/d with a positive monoclonal kappa. The following portions of the patient's history were reviewed and updated as appropriate: allergies, current medications, family history, medical history, social history, surgical history, and problem list. Current Outpatient Medications: acetaminophen (TYLENOL) 500 mg tablet, Take 500-1,000 mg by mouth every 6 (six) hours as needed forpain., Disp: , Rfl: carbidopa-levodopa (SINEMET) 25-100 mg per tablet, Take 1 tablet by mouth 3 (three) times a day. (Patient taking differently: Take 1 tablet by mouth 3 (three) times a day. Tries to take first when she wakes up, then at 1300 and 1900), Disp: 270 tablet, Rfl: 3 levothyroxine (SYNTHROID, LEVOTHROID) 75 mcg tablet, Take 1 tablet by mouth every morning., Disp: ,Rfl: melatonin 5 mg tablet, 5 mg at bedtime as needed., Disp: , Rfl: multivitamin tablet, Take 1 tablet by mouth daily., Disp: , Rfl: ursodioL (ACTIGALL) 300 mg capsule, Take 1 capsule (300 mg total) by mouth 3 (three) times a day. (Patient taking differently: Take 300 mg by mouth 3 (three) times a day. Takes at same time as Sinemet (upon awakening, 1300, and 1900)), Disp: 270 capsule, Rfl: 11 REVIEW OF SYSTEMS Gastrointestinal: Positive for constipation. Genitourinary: Positive for frequent urination (nocturia). Neurological: Positive for light-headedness. Psychiatric/Behavioral: Positive for feeling down, depressed, or hopeless over past two weeks. 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 The IgM is at 1330. Interestingly, she had an elevated IgM backin 2013 during this CMV viremia episode. Whether the monoclonal IgM was present back then is unclear since this was during an infection episode. She has had lymph node biopsies of her neck which were negative. MRI of her abdomen pelvis was negative to 4 lymphadenopathy. At this point, would repeat monoclonal protein testing in 6 months. If there is progression, would get a bone marrow biopsy and a chest CT to complete the workup. Otherwise would repeat monoclonal protein testing yearly. LAINTS COORDINATOR documented in this encounter Miscellaneous Notes * Addendum Note - Ashtyn Patrciio - 03/07/2023 10:30 AM CSTAddended by: ASHTYN PATRICIO on: 07/09/2023 03:34 PM Modules accepted: Orders documented in this encounter Plan of Treatment Upcoming Encounters Date Type Department Care Team (Latest Contact Info) Description 09/25/2023 2:00 PM CDT Clinical Communication Virtual Review in [place], [place] 200 [place] [phone] 09/27/2023 9:00 AM CDT Appointment Department of Laboratory Medicine and Pathology, [facility], in [place], [place] [address] [place] [phone] Jonathan Richardson M.D. [address] [place] [phone] 09/27/2023 3:00 PM CDT Office Visit Division of Hematology in [place], [place] [address] [place] [phone] Jonatahn Richardson M.D. [address] [place] [phone] Scheduled Orders Name Type Priority Associated Diagnoses Orde r Schedule Immunoglobulins (IgG, IgA, and IgM) Lab Routine Gammopathy Monoclonal Nonspecific Expected: 09/06/2023 (Approximate), Expires: 03/07/2024 Immunoglobulin Free Light Chains Lab Routine Gammopathy Monoclonal Nonspecific Expected: 09/06/2023 (Approximate), Expires: 03/07/2024 Monoclonal Gammopathy Diagnostic Lab Routine Gammopathy Monoclonal Nonspecific Expected: 09/06/2023 (Approximate), Expires: 03/07/2024 CBC with Differential, Blood Lab Routine Gammopathy Monoclonal Nonspecific Expected: 09/06/2023 (Approximate), Expires: 03/07/2024 Comprehensive Metabolic Panel Lab Routine Gammopathy Monoclonal Nonspecific Expected: 09/06/2023 (Approximate), Expires: 03/07/2024 LD (Lactate Dehydrogenase) Lab Routine Gammopathy Monoclonal Nonspecific Expected: 09/06/2023 (Approximate), Expires: 06/05/2024 Viscosity Lab Routine Gammopathy Monoclonal Nonspecific Expected: 09/06/2023 (Approximate), Expires: 06/05/2024 NT-Pro B-Type Natriuretic Peptide (BNP) Lab Routine Gammopathy Monoclonal Nonspecific Expected: 01/08/2024 (Approximate), Expires: 06/05/2024 Scheduled Referrals Name Type Priority Associated Diagnoses Order Schedule Hematology office visit (clinic) [place] [facility]; [facility]; General Outpatient Referral Routine Expected: 09/06/2023 (Approximate), Expires: 06/05/2024 documented as of this encounter Visit Diagnoses Diagnosis Gammopathy Monoclonal Nonspecific- Primary documented in this encounter Care Teams Vest Presser Relationship Specialty Start Date End Date Elsewhere, Pcp PCP - General Internal Medicine 12/28/22 documented as of this encounter
--- OUTSIDE RECORDS SUMMARY | 2023-09-24 14:38 | XMS_ITS | Encounter Summary ---
Author Organization [facility] Address [address] [place] [address] Care Team Providers Care Nutritionalist Name Role Phone Elsewhere, Pcp Primary Care Provider Unavailabl e Reason for Visit * Reason Comments Med Refill Encounter Details Date Type Department Care Team ([facility] st Contact Info) Description 09/20/2023 Refill Division of Gastroenterology in [place], [place] [address] [place] [phone] Buddy Ceja M.D. [address] [place] [phone] Med Refill Social History Tobacco Use Types Packs/Day Years Used Date Smoking Tobacco: Never Passive Smoke Exposure: Past Smokeless Tobacco: Never Passive Exposure Comments:Ch ildhood exposure. Alcohol Use Standard Drinks/Week Comments Not Currently 0 (1 standard drink = 0.6 oz pur e alcohol) [facility] Utilities Answer Date Recorded In the past 12 months has [facility] [employer] gas, oil, or water [employer] threatened to shut off services in your [...] often do you attend chur ch or lutheran services? More than 4 times per year 04/04/2022 Do you belong to any clubs o r organizations such as muslim groups, unions, fraternal or athletic groups, or [...] and heating? Not hard at all 08/26/2022 [facility] Occupat ional Health - Occupational [...] your living situation today? I have a [facility] place to live 07/20/2023 Education Answer [...] PM CDT Clinical Communication Virtual Review in [place], [place] 200 [place] [phone] 09/27/2023 9:00 AM CDT Appointment Department of Laboratory Medicine and Pathology, [facility], in [place], [place] [address] [place] [phone] Jonathan Richardson M.D. [address] [place] [phone] 09/27/2023 3:00 PM CDT Office Visit Division of Hematology in [place], [place] [address] [place] [phone] Jonathan Richardson M.D. [address] [place] [phone] documented as of this encounter Visit Diagnoses Diagnosis Cholestasis Intrahepatic (HCC) documented in this encounter Care Teams Nutritionalist Relationship Specialty Start Date End Date Elsewhere, Pcp PCP - General Internal Medicine 12/28/22 documented as of this encounter
--- OUTSIDE RECORDS SUMMARY | 2023-09-24 14:38 | XMS_ITS | Referral Summary ---
Author Organization [facility] Address [address] [place] [address] Care Team Providers Care Bryologist Name Role Phone Elsewhere, Pcp Primary Care Provider Unavailabl e Source Comments Patient records contain information from all sites at [facility]. For routine questions regarding patient records, call [phone] during business hours, M-F 8:00 AM - 5:00 PM Central Time. Record requests for emergency care only can be directed to [phone] at any time.[facility] Encounters Date Type Department Care Team Description 09/20/2023 Refill Division of Gastroenterology in [place], [place] [address] [place] [phone] Buddy Ceja M.D. Med Refill 08/08/2023 Refill [facility]ST [facility] Riri Harding M.D., Ph.D. Med Refill 08/06/2023 7:09 AM CDT - 08/06/2023 11:59 PM CDT Hospital Encounter Department of Laboratory Medicine and Pathology, [facility], in [place], [place] [address] [place] [address] Jonathan Richardson M.D. Gammopathy Monoclonal Nonspecific Discharge Disposition: Home or Self Care 07/24/2023 2:30 PM CDT Comprehensive Visit Department of Neurology in [place], [place] [address] [place] [address] Riri Harding M.D., Ph.D. Parkinsonism Unspecified (HCC) (Primary Dx) 07/23/2023 7:45 AM CDT Clinical Communication Virtual Review in [place], [place] [address] [place] [phone] Pre-visit Intake 06/24/2023 Refill Division of Gastroenterology in [place], [place] [address] [place] [phone] Buddy Ceja M.D. Med Refill from Last 3 Months Allergies No known active allergies Medications Medication [...] 23 Bradycardia 07/04/2010 10/05/2022 Overview: Unremarkable EKG 2007, normal stress echocardiogram in 2005 Social History Tobacco Use Types Packs/Day Years Used Date Smoking Tobacco: Never Passive Smoke Exposure: Past Smokeless Tobacco: Never Tobacco Cessation:Counseling Given: Not Answered Passive Exposure Comments:Childhood exposure. Alcohol Use Standard Drinks/Week Comments Not Currently 0 (1 standard drink = 0.6 oz pur e alcohol) [facility] Utilities Answer Date Recorded In the past 12 months has e [employer], gas, oil, or water [employer] threatened to shut off services in your [...] often do you attend chur ch or alevism services? More than 4 times per year 04/04/2022 Do you belong to any clubs o r organizations such as yazdanism groups, unions, fraternal or athletic groups, or [...] and heating? Not hard at all 08/26/2022 [facility] - Occupational Stress Questionnaire Answer Date Recorded [...] your living situation today? I have a [facility] place to live 07/20/2023 Education Answer Date [...] PM CDT Clinical Communication Virtual Review in [place], [place] 200 [place] [phone] 09/27/2023 9:00 AM CDT Appointment Department of Laboratory Medicine and Pathology, [facility], in [place], [place] [address] [place] [phone] Jonathan Richardson M.D. [address] [place] [phone] 09/27/2023 3:00 PM CDT Office Visit Division of Hematology in [place], [place] [address] [place] [phone] Jonathan Richardson M.D. [address] [place] [phone] Medical Devices Explanted Type Area Mold Release Worker Device Identifier Shelf Expiration Date Model / Serial / Lot Clp Apr [facility] - [id number] Explanted:Qty : 1 on 12/28/2022 at [facility] Hardware e.g. pins/screws/ rods [employer] [id number] 09/30/2027 MCS20 / / [id number] Clp Apr Lgc Intnl Md [place] 9.75 - [id number] Explanted:Qty : 1 on 12/28/2022 at [facility] Hardware e.g. pins/screws/ rods [employer] [id number] / [...] CDT Buddy Ceja M.D. LAB BLOOD ADD-ON [facility] [address] [place] [address], [facility] DTL [facility] [address] [place] [address] * Thyroid Function [place] (08/19/2014 9:05 AM CDT) TSH, Sensitive 0.5 0.3 - 4.2 MIU/L [facility] 08/19/2014 9:05 AM CDT 08/19/2014 9:05 AM CDT Jori Harley LAB BLOOD ADD-ON [facility] [address] [place] [address], [facility] from Last 3 Months or Most Recently Relevant to Health Maintenance Care Teams Bryologist Relationship Specialty Start Date End Date Elsewhere, Pcp PCP - General Internal Medicine 12/28/22
--- OUTSIDE RECORDS SUMMARY | 2023-09-24 14:38 | XMS_ITS | Encounter Summary ---
Author Organization [facility] Address [address] [place] [address] Care Team Providers Care [employer] Special Education Teacher Name Role Phone Elsewhere, Pcp Primary Care Provider Unavailabl e Reason for Visit * Reason Onset Date Comments Pre-visit Intake 07/23/2023 * Appointment Request (Routine) - Authorized Specialty Diagnoses / Procedures Referred By Magno t Referred To Contact Neurology Referral ID Status Reason Start Date Expiration Date V isits Requested Visits Authorized [id number] Authorized 06/07/2023 06/06/2024 1 1 Encounter Details Date Type Department Care Team (Latest Contact Info) Description 07/23/2023 7:45 AM CDT Clinical Communication Virtual Review in [address] [phone] Pre-visit Intake Social History Tobacco Use Types Packs/Day Years Used Date Smoking Tobacco: Never Passive Smoke Exposure: Past Smokeless Tobacco: Never Tobacco Cessation:Counseling Given: Not Answered Passive Exposure Comments:Childhood exposure. Alcohol Use Standard Drinks/Week Comments Not Currently 0 (1 standard drink = 0.6 oz pur e alcohol) [facility] Utilities Answer Date Recorded In the [...] often do you attend chur ch or shinto services? More than 4 times per year 04/04/2022 Do you belong to any clubs o r organizations such as lutheran groups, unions, fraternal or athletic groups, or [...] and heating? Not hard at all 08/26/2022 [facility] of Occupat ional Health - [...] your living situation today? [facility] have [facility] 07/20/2023 Education Answer Date [...] PM CDT Clinical Communication Virtual Review in [place], [place] 200 [place] [address] 09/27/2023 9:00 AM CDT Appointment Department of Laboratory Medicine and Pathology, [facility], in [place], [place] [address] [place] [phone] Jonathan Richardson M.D. [address] [place] [phone] 09/27/2023 3:00 PM CDT Office Visit Division of Hematology in [place], [place] [address] [place] [phone] Jonathan Richardson M.D. [address] [place] [phone] documented as of this encounter Visit Diagnoses Not on filedocumented in this encounter Care Teams [employer] Teacher Relationship Specialty Start Date End Date Elsewhere, Pcp PCP - General Internal Medicine 12/28/22 documented as of this encounter
--- OUTSIDE RECORDS SUMMARY | 2023-09-24 14:39 | XMS_ITS | Clinical Summary ---
Author Organization [employer] [facility] Address [place], [place] [address] Care Team Providers Care Brim Plater Name Role Phone Mayela Smith MD Primary Care Provider [phone] July, Savannah Hernandez RN, BSN Unavailable Allergies No known active allergies Medications Medication Sig Dispensed Refills Start Date End Date Status MULTIVITAMIN TAB take 1 tablet by oral route once daily with food 0 10/17/2006 Active levothyroxine (SYNTHROID) 75 mcg tabletIndications:Unsp ecified hypothyroidism Take 1 tablet by mouth once daily. Best if taken on empty stomach. 90 tablet 3 08/16/2011 Active predniSONE (DELTASONE) 20 mg tablet Take 2 and 1/2 tablets by mouth daily for 3 days then 2 tabs daily for 3 days then 1 and 1/2 tabs for 3 days then 1 tab daily for 3 days then 1/2 tab daily for 3 days 45 tablet 02/20/2014 Active docosanol 10 % (ABREVA) 10 % cream Apply topically to affected area(s) 5 times daily. 2 g 02/20/2014 Active Active Problems Problem Noted Date Diagnosed Date Hepatitis 02/07/2014 Respiratory failure 02/07/2014 Advanced care planning/counseling discussion 10/2013 ARDS (adult respiratory distress syndrome) 02/07 Fever 02/07/2014 Sinus bradycardia 07/04/2010 Overview: Unremarkable EKG 2006, normal stress echocardiogram in 2004 Hemangioma of skin and subcutaneous tissue 06/28 Unspecified hypothyroidism 06/18/2009 Routine general medical exam ination at a health care facility 06/09/2008 Overview: Colonoscopy normal 2007, recheck 10 years Normal dexa 2004, osteopenia -0.1 at one level. 2007. Recheck 2012 maybe intraductal papilloma left breast 05/27/2007 Overview: biopsy 10/2006 Symptomatic menopausal or female climacteric sta marcos 05/27/2007 Overview: age 48 Immunizations Name Administration Dates Next Due HepA-HepB (Twinrix) 04/09/2009,11/03/2008,2008 Td (Age >=7 Years) 07/09/1997 Td, Preservative Free (age >= 7 Years) 8 Tdap 07/04/2010 Family History Medical History Relation Name Comments Other Daughter 1 SVT Other Daughter 2 Fibromyalgia Other Father brain aneursym, strokes in early 50s, age 67. Significant EtOH consumption Heart Disease Mother age 77. H ad prior HI. Hyperlipidemia Mother Hypertension Mother Other Mother uterine cancer Cancer-colon Paternal Grandfather Good Health Sister 1 Good Health Sister 2 Good Health Sister 3 Good Health Sister 4 Cancer-breast No Family History Relation Name Status Comments Daughter 1 Daughter 2 Father (Age 67) aneurysm, cerebral Mother (Age 77) HI Paternal Grandfather Sister 1 Sister 2 Sister 3 Sister 4 Social History Tobacco Use Types Packs/Day Years Used Date Smoking Tobacco: Never Smokeless Tobacco: Never Tobacco Cessation:Counseling Given: Yes Alcohol Use Standard Drinks/Week Comments No 3.3 (1 standard drin k = 0.6 oz pure alcohol) social drinker 1 drink per week. Sex and Gender Information Value Date Recorded Sex Assigned at Not on file Gender Identity Not on file Sexual Orientation Not on file Obstetrics History Para Term AB IAB SAB Ectopic Multiple Livin g Live Births 2 2 2 Date Outcome GA Total Labor Labor/2nd/3rd Weight Sex Type Anes PTL Sydnee A1 A5 Name Clin Para Para Last Filed Vital Signs Vital Sign Reading Time Taken Comments Blood Pressure 127/63 03/06/2014 1:17 PM [facility] Pulse 54 03/06/2014 1:17 PM [facility] Temperature 36.7 ??C (98.1 ??F) 03/06/2014 1:17 PM CS T Respiratory Rate 20 03/02/2014 9:39 AM [facility] Oxygen Saturation 96% 03/06/2014 1:17 PM [facility] Inhaled Oxygen Concentration - - Weight 58.9 kg (129 lb 12.8 oz) 03/02/2014 9:39 AM [facility] Height 158.8 cm (5' 2.52) 03/02/2014 9:39 AM CS T Body Mass Index 23.35 03/02/2014 9:39 AM [facility] Plan of Treatment Health Maintenance Due Date Last Done Comments Depression screening for age 12+ 1968 BMI (ht and wt on same day) for age 18+ 1974 Zoster (shingles) series for age 50+ (1 of 2) 2006 Mammogram for age 45-75 08/15/2012 08/16/19 12, 08/16/2011, 07/04/2010, Additional history exists Lipids for age 45-75 06/15/2013 06/15/2008 Colonoscopy through age 75 04/03/2017 04/03/2007 Tetanus booster 07/04/2020 07/04/2010, 05/04, 07/09/1997 DEXA/DXA scan for age 65+ 2021 06/04/2007 Pneumococcal series for age 65+ (1 of 1 - PCV) 2021 COVID-19 vaccine series (1 - 2022- season) 2022 Influenza for age 65+ 12/02/2023 Tdap Completed 07/04/2010 Hepatitis C screening for ag e 18-79 Completed 02/09/2014 Procedures Procedure Name Priority Date/Time Associated Diagnosis Comments ANTI HCV Early AM 02/09/2014 4:30 AM [facility] XR MAMMO BILAT SCREEN FFDM (IA) Routine 08/16/2011 9:16 AM CDT Other screening mammogram LIPID PANEL Routine 06/15/2008 7:26 AM CDT Screening for Lipoid Disorders XR DXA BONE DENSITY 2 SITES AXIAL Routine 06/04/2007 8:47 AM [facility] Screening Osteoporosis from Last 3 Months or Most Recently Relevant to Health Maintenance Results * ANTI HCV (02/09/2014 4:30 AM [facility]) HEPATITIS C ANTIBODY Non-Reacti ve Non-Reacti ve 02/09/2014 5:40 AM [facility] Blood specimen (specimen) BLOOD SPECIMEN / Unknown Venipuncture / Unknown 02/09/2014 4:30 AM [facility] 02/09/2014 4:53 AM [facility] Narrative [facility] - 02/09/2014 5:40 AM [facility] Antibodies to HCV not detected; does not exclude the possibility of exposure to HCV. Dilshad Jacome MD SEND OUTS [facility] [address] [place] [id number], * XR MAMMO BILAT SCREEN FFDM (08/16/2011 9:16 AM CDT) Anatomical Region Laterality Modality BREASTS, Breast Left, Breast Right Bilateral Mammography Impressions 08/16/2011 12:22 PM CDT ??There is no radiographic evidence for malignancy. ??Recommend annual mammograms. A lay language report of this examination will be provided to the patient. MAMMOGRAM ASSESSMENT: ??ACR 2 Benign Narrative 08/16/2011 12:22 PM CDT XR MAMMO BILAT SCREEN FFDM [G0202.0] CLINICAL HISTORY: ??This is an asymptomatic 56 y.o. patient. INDICATION FOR EXAM: Mammogram Screening. TECHNIQUE: CC & MLO views were obtained. ??This digital study was evaluated with the assistance of Computer-Aided Detection. ?? COMPARISON FILMS: Yes 07/04/10 [facility] 06/28/09 [facility] FINDINGS: ??Mammographically, the breast tissue is heterogeneously dense, which could obscure detection of small masses (approximately 51% - 75% glandular). ??No suspicious masses or microcalcifications. ??Benign appearing calcifications within both breasts and Intramammary lymph node within left breast. Procedure Note Dominic Booth DO - 08/16/2011 XR MAMMO BILAT SCREEN FFDM [G0202.0] CLINICAL HISTORY: This is an asymptomatic 56 y.o. patient. INDICATION FOR EXAM: Mammogram Screening. TECHNIQUE: CC & MLO views were obtained. This digital study was evaluatedwith the assistance of Computer-Aided Detection. COMPARISON FILMS: Yes 07/04/10 [facility] 06/28/09 [facility] FINDINGS: Mammographically, the breast tissue is heterogeneously dense,which could obscure detection of small masses (approximately 51% - 75%glandular). No suspicious masses or microcalcifications. Benignappearing calcifications within both breasts and Intramammary lymph nodewithin left breast. IMPRESSION: There is no radiographic evidence for malignancy. Recommendannual mammograms. A lay language report of this examination will be provided to the patient. MAMMOGRAM ASSESSMENT: ACR 2 Benign Priya Menjivar MAMMO * lipid panel (06/15/2008 7:26 AM CDT) CHOLESTEROL,TOTAL 150 110 - 199 mg/dL [facility] TRIGLYCERIDES 78 <150 mg/dL [facility] HDL CHOLESTEROL 49 >40 mg/dL [facility] CHOL/HDL RATIO 3.06 <4.51 [facility] LDL CHOLESTEROL 85 <131 mg/dL [facility] PATIENT STATUS Fasting [facility] Blood specimen (specimen) BLOOD SPECIMEN / Unknown 06/15/2008 7:26 AM CDT 06/15/2008 7:20 AM CDT Priya Menjivar CHEMISTRY [facility] [address] [place] [address] * XR DEXA BONE DENSITY 2 SITES (06/04/2007 8:47 AM [facility]) Anatomical Region Laterality Modality Spine, HIPS, HIPL, HIPR Other 06/04/2007 8:47 AM [facility] Narrative 06/07/2007 1:15 PM [facility] Please see scanned document for results of this study. Procedure Note Priya Menjivar D - 06/07/2007 Please see scanned document for results of this study. Priya Menjivar DEXA from Last 3 Months or Most Recently Relevant to Health Maintenance Advance Directives * Full Code (Latest Code Status on File) Date Activated Date Inactivated Comments 02/07/2014 2:44 PM 02/20/2014 6:50 PM Care Teams Brim Plater Relationship Specialty Start Date End Date Mayela Smith MD PCP - General Internal Medicine 02/12/14JulySavannah RN, BSN [address] [address] Development Lead Oncology 03/03/14
== END 2023-09-20 15:19 | disposition home or self-care (01) ==
LOC: NFLDREF 09-24 14:35
PROVIDERS: PCP Internal Medicine; Referring Provider Internal Medicine; Visit Provider Internal Medicine
DX: K62.5 Hemorrhage of anus and rectum (principal); N95.0 Postmenopausal bleeding; E03.9 Hypothyroidism, unspecified; M85.80 Other specified disorders of bone density and structure, unspecified site
CPT/HCPCS: 82306; 84443

== ENCOUNTER 2023-09-28 11:52 | Outpatient (CLI) | payer MEDICARE, SELFPAY ==
--- OUTSIDE RECORDS SUMMARY | 2023-09-28 11:55 | XMS_ITS ---
Author Organization [facility] Address [address] [place] [address] Care Team Providers Care Leadite Worker Name Role Phone Unavailable Unavailable Unavailable Surgery Details Not on file Complications Check Surgery Details section. Procedure Estimated Blood Loss Check Surgery Details section. Procedure Findings Check Surgery Details section. Procedure Specimens Taken Check Surgery Details section.
--- OUTSIDE RECORDS SUMMARY | 2023-09-28 11:55 | XMS_ITS | Continuity of Care Document ---
Author Organization [facility] Address [address] [address] [place] [address] Phone Care Team Providers Care Platinum Smith Name Role Phone Unavailable Unavailable Unavailable Allergies, Adverse Reactions, Alerts Substance Reaction Status Criticality No Known Allergies Active No Inform ation Medications Medication Instructions Dosage Effective Dates (start - stop) Status Comments Levothroid 75 mcg tablet take 1 tablet by oral route every day - Active ursodiol 300 mg capsule take 2 Capsule by oral route 2 times every day with food. Note: for the first 5 d take only 1 capsule twice daily 2 Capsule - No Longer Active Procedures Procedure Date Offic/outpt E&m Estab Low-mod 5 Routine Serum Collection Subsqt Hosp-da E&m Minr Compl 4 Subsqt Hosp-da E&m Minr Compl 4 Subsqt Hosp-da E&m Minr Compl 4 Subsqt Hosp-da E&m Minr Compl 4 Subsqt Hosp-da E&m Minr Compl 4 Subsqt Hosp-da E&m Minr Compl 4 Subsqt Hosp-da E&m Minr Compl 4 Subsqt Hosp-da E&m Minr Compl 4 Subsqt Hosp-da E&m Minr Compl 4 Subsqt Hosp-da E&m Minr Compl 4 Init Inpt Cons New/est Mod-hi 4 Subsqt Hosp-da E&m Minr Compl 4 Advance Directives Directive Yes / No Effective Date File Name No Information Encounters Encounter Description Practice Location Reason(s) For Visit Diagnoses Date Provider Providers Copied on Encounter [facility], [address] [address], [place], [id number], [place] tel:[phone] [facility] Autoimmune cholangitis 5 No Information Referring Provider: Mayela Adames, [address] [place], [address]. 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 tel:[phone] Offic/outpt E&m Estab Low-mod [facility], [address] [address], [place], [id number], [place] tel:[phone] [facility] Liver Symptoms or Concerns (chief complaint) Acute hepatitis 5 No Information Referring Provider: Referral Self, USE FOR SELF REFERRALS. [facility], [address] [address], [place], [id number], [place] tel:[phone] [facility] Acute cholangitisCh olangitis 4 No Information Referring Provider: Referral Self, USE FOR SELF REFERRALS. [facility], [address] [address], [place], [id number], [place] tel:[phone] [facility] Acute cholangitisCh olangitis 4 No Information [facility], [address] [address], [place], [id number], [place] tel:[phone] [facility] Acute cholangitisCh olangitis 4 No Information Subsqt Hosp-da E&m Minr Compl [facility], [address] [address], [place], [id number], [place] tel:[phone] [facility] No Information 4 No Information Referring Provider: Farrah Edwards, [address], [place], [address]. tel:[phone] Subsqt Hosp-da E&m Minr Compl [facility], [address] [address], [place], [id number], [place] tel:[phone] [facility] No Information 4 [employer]. [address] [facility], [facility] [address], [place], [place], [id number], [place]. tel:[phone] Referring Provider: Farrah Edwards, [address], [place], [address]. tel:[phone] Subsqt Hosp-da E&m Minr Compl [facility], [address] [address], [place], [place], [id number], [place] tel:[phone] [facility] No Information 4 [employer]. [address] [facility] [address], [place], [place], [id number], [place]. tel:[phone] Referring Provider: Farrah Edwards, [address], [place], [address]. tel:[phone] Init Inpt Cons New/est Mod-hi [facility], [address] [address], [place], [id number], [place] tel:[phone] [facility] No Information 4 No Information Referring Provider: Farrah Arciniega MD K, [address], [place], [address]. tel:[phone] Family History Family Member Type Diagnosis Age At Onset Mother Problem (finding) malignant neoplasm of u terus Mother Problem (finding) hypertension Daughter Problem (finding) Alive and well Father Problem (finding) alcoholism Sister Problem (finding) Alive and well Payers Payer name Insurance type Covered libertarian ID Authoriza tion(s) [employer] [place] [id number] Social History Type Description Quantity Date Captured Comments Alcohol Use Details Unknown Caffeine Use Details Unknown Tobacco Use Status No Information Smoking Status No Information Sex Female Chief Complaint And Reason For Visit No Information Reason For Referral Reason For Referral No Information Plan Of Treatment Date Type Action Status Referral Ordered: follow-up visit with Mundo Croft MD 3 Months Appointment date/timeframe: 3 Months ordered History Of Present Illness Encounter Date Complaint History Of Prese nt Illness Liver Symptoms or Concerns This very pleasant 58-year-old woman returns to [facility]ology Clinic in followup after 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 Her clinical history has been consistent with that diagnosis. Prior to this illness, she was in generally excellent health with hypothyroidism on replacement as her only chronic medical process. She was very physically active and symptoms actually first started in January on a day she was scheduled to run [address] race, which she did complete in spite of not feeling 100%, but then precipitated marked symptoms over the next 48 hours, jaundice and eventually respiratory compromise presenting with a bilateral pneumonitis. 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
--- OUTSIDE RECORDS SUMMARY | 2023-09-28 11:55 | XMS_ITS | Encounter Summary ---
Author Organization [facility] Address [address] [place] [address] Care Team Providers Care Manufacturers Agent Name Role Phone Elsewhere, Pcp Primary Care Provider Unavailabl e Encounter Details Date Type Department Care Team (Latest Contact Info) Description 09/27/2023 8:30 AM CDT - 09/27/2023 11:59 PM CDT Hospital Encounter Department of Laboratory Medicine and Pathology, [facility] in [place], [place] [address] [place] [address] Jonathan Richardson M.D. [address] [place] [phone] Gammopathy Monoclonal Nonspecific Discharge Disposition: Home or Self Care Social History Tobacco Use Types Packs/Day Years Used Date Smoking Tobacco: Never Passive Smoke Exposure: Past Smokeless Tobacco: Never Passive Exposure Comments:Ch ildhood exposure. Alcohol Use Standard Drinks/Week Comments Not Currently 0 (1 standard drink = 0.6 oz pur e alcohol) [facility] Utilities Answer Date Recorded In the past 12 months has [employer], gas, oil, or water [employer] threatened to shut off services in your [...] often do you attend chur ch or mandaeism services? More than 4 times per year 04/04/2022 Do you belong to any clubs o r organizations such as gnosticism groups, unions, fraternal or athletic groups, or [...] heating? Not hard at all 08/26/2022 [facility] ional Health - Occupational [...] your living situation today? I have a [facility] place to live 07/20/2023 Education Answer [...] (six) hours as needed for pain. 08/19/2014 carbidopa-levodopa (SINEMET) 25-100 mg per tablet Take 1 tablet by mouth 3 (three) times a day. 270 tablet 3 08/09/2023 08/08/2024 folic acid-vitamin B6,B12 (FOLBEE) 2.5-25-1 mg per tablet To prevent homocysteine. Take one tab daily 90 tablet 3 07/24/2023 GaviLyte-G 236-22.74-6.74 -5.86 gram solution 4pm day prior to procedure. Drink 8oz glass every 15 minutes until 1/2 of solution is gone. 6 hours prior to procedure drink 8 oz glass every 15 minutes until remaining solution gone.* 09/25/2023 levothyroxine (SYNTHROID, LEVOTHROID) 75 mcg tablet Take 1 tablet by mouth every morning. 08/19/2014 melatonin 10 mg tablet Take 10 mg by mouth at bedtime as needed. multivitamin (DAILY VITAMIN ORAL) 04/02/2023 polyethylene glycol (Miralax) 17 gram/dose oral powder Take 17 g by mouth as needed. 04/02/2023 psyllium husk (METAMUCIL ORAL) Take 1 Dose by mouth daily. Mix 1 tsp of powder with water daily. ursodioL (ActigalL) 300 mg capsuleIndications:Cho lestasis Intrahepatic (HCC) take one capsule by mouth three times daily 270 capsule 09/20/2023 documented as of this encounter Plan of Treatment Not on file documented as of this encounter Procedures Procedure Name Priority Date/Time Associated Diagnosis Comments QUANTITATIVE M-PROTEIN STUDY, S Routine 09/27/2023 8:54 AM CDT NT-PRO B-TYPE NATRIURETIC PEPTIDE (BNP), S Routine 09/27/2023 8:54 AM CDT Gammopathy Monoclonal Nonspecific VISCOSITY, S Routine 09/27/2023 8:54 AM CDT Gammopathy Monoclonal Nonspecific IMMUNOGLOBULIN FREE LIGHT CHAINS, S Routine 09/27/2023 8:54 AM CDT CBC WITH DIFFERENTIAL, B Routine 09/27/2023 8:54 AM CDT Gammopathy Monoclonal Nonspecific LACTATE DEHYDROGENASE (LD), S Routine 09/27/2023 8:54 AM CDT Gammopathy Monoclonal Nonspecific COMPREHENSIVE METABOLIC PANEL, S/P Routine 09/27/2023 8:54 AM CDT Gammopathy Monoclonal Nonspecific documented in this encounter Results * (ABNORMAL) Immunoglobulin Free Light Chains (09/27/2023 8:54 AM CDT) [place] Free Light Chain, S 7.43(H) 0.3300 - 1.94 mg/dL 09/27/2023 1:44 PM CDT [facility] Lambda Free Light Chain, S 1.13 0.5700 - 2.63 mg/dL 09/27/2023 1:44 PM CDT [facility] [place]/Lambda FLC Ratio 6.58(H) 0.2600 - 1.65 09/27/2023 1:44 PM CDT [facility] Blood 09/27/2023 8:54 AM CDT 09/27/2023 1:02 PM CDT Jonathan Richardson M.D. LAB BLOOD ADD-ON [facility] [address] [place] [address] [facility] [address] [place] [address] * (ABNORMAL) Quantitative M-protein Study (09/27/2023 8:54 AM CDT) Immunoglobulin A (IgA), S 124 61 - 356 mg/dL 09/27/2023 2:17 PM CDT [facility] Immunoglobulin M (IgM), S 1210(H) 37 - 286 mg/dL 09/27/2023 2:52 PM CDT [facility] Immunoglobulin G (IgG), S 1290 767 - 1590 mg/dL 09/27/2023 2:17 PM CDT [facility] Therapeutic Antibody Administered? Unspecified 09/27/2023 12:53 PM CDT [facility] M-protein MK 1.063(H) g/dL 09/28/2023 9:26 AM CDT [facility] Flag, M-protein Isotype Positive(A) Negative 09/28/2023 9:26 AM CDT [facility] QMPTS Interpretation IgM kappa 1.063 g/dL 09/28/2023 9:26 AM CDT [facility] Comment: ----ADDITIONAL INFORMATION---- The submitted sample was assayed by five separate immunopurifications for IgG, IgA, IgM, kappa and lambda. ??The result reflects the findings of either no monoclonal protein detected or those monoclonal immunoglobulins that were detected. This test was developed and its performance characteristics determined by [facility] in a manner consistent with CLIA requirements. This test has not been cleared or approved by the U.S. Food and Drug Administration. Blood 09/27/2023 8:54 AM CDT 09/27/2023 12:53 PM CDT Narrative [facility] - 09/28/2023 9:26 AM CDT Specimen Information: Specimen ID: [id number] Specimen Type: Blood Specimen Collection Start Date: 09/27/2023 ??8:54 AM Specimen Received Date: 09/27/2023 12:53 PM Specimen ID: [id number] Specimen Type: Blood Specimen Collection Start Date: 09/27/2023 ??8:54 AM Specimen Received Date: 09/27/2023 ??1:02 PM Jonathan Richardson M.D. LAB BLOOD ADD-ON Performing Organization Address City/[facility]/ZIP Co de Phone Number [facility] [address] [place] [id number] [place] [address] [address] [place] [id number] [place] [address] [address] [place] [facility] [address] * NT-Pro B-Type Natriuretic Peptide (BNP) (09/27/2023 8:54 AM CDT) [facility] NT-Pro BNP 367 <=540 pg/mL 09/27/2023 10:08 AM CDT DTL Comment: NT-proBNP values less than 300 pg/mL have a 99% negative predictive value for excluding acute congestive heart failure. A cutoff of 1200 pg/mL for patients with an eGFR<60 yields a diagnostic sensitivity and specificity of 89% and 72% for acute congestive heart failure. A diagnostic NT-proBNP cutoff of 900 pg/mL has been suggested in adults 50-75 years of age in the absence of renal failure. Blood (Blood, Venous) 09/27/2023 8:54 AM CDT 09/27/2023 9:35 AM CDT Jonathan Richardson M.D. LAB BLOOD ADD-ON [facility] [address] [facility] [address] [place] [address] * Viscosity (09/27/2023 8:54 AM CDT) Pathologist [facility] Viscosity, S 1.1 <=1.5 cpoise 09/28/2023 10:25 AM CDT [facility] Comment: ----ADDITIONAL INFORMATION---- This test has been modified from the instant powder supervisor's instructions. Its performance characteristics were determined by [facility] in a manner consistent with CLIA requirements. This test has not been cleared or approved by the U.S. Food and Drug Administration. Blood (Blood, Venous) 09/27/2023 8:54 AM CDT 09/28/2023 6:57 AM CDT Jonathan Richardson M.D. LAB BLOOD NON ADD-ON [facility] [address] [place] [address] [facility] [address] [place] [address] * LD (Lactate Dehydrogenase) (09/27/2023 8:54 AM CDT) [facility] Lactate Dehydrogenase (LD), S 135 122 - 222 U/L 09/27/2023 10:08 AM CDT DT Blood (Blood, Venous) 09/27/2023 8:54 AM CDT 09/27/2023 9:35 AM CDT Jonathan Richardson M.D. LAB BLOOD NON ADD-ON [facility] [address] [place] [address], [facility] [address] [place] [address] * (ABNORMAL) Comprehensive Metabolic Panel (09/27/2023 8:54 AM CDT) [facility] Potassium, S 4.2 3.6 - 5.2 mmol/L 09/27/2023 10:08 AM CDT DTL Sodium, S 139 135 - 145 mmol/L 09/27/2023 10:08 AM CDT DTL Chloride, S 104 98 - 107 mmol/L 09/27/2023 10:08 AM CDT DTL Bicarbonate, S 27 22 - 29 mmol/L 09/27/2023 10:08 AM CDT DTL Anion Gap 8 7 - 15 09/27/2023 10:08 AM CDT DTL BUN (Blood Urea Nitrogen), S 13 6 - 21 mg/dL 09/27/2023 10:08 AM CDT DTL Creatinine 0.78 0.59 - 1.04 mg/dL 09/27/2023 10:08 AM CDT DTL Estimated GFR (eGFR) 83 >=60 mL/min/BS A 09/27/2023 10:08 AM CDT DTL Comment: Estimated GFR calculated using the 2020 CKD_EPI creatinine equation. Calcium, Total, S 9.5 8.8 - 10.2 mg/dL 09/27/2023 10:08 AM CDT DTL Glucose, S 91 70 - 140 mg/dL 09/27/2023 10:08 AM CDT DTL Protein, Total, S 7.1 6.3 - 7.9 g/dL 09/27/2023 10:08 AM CDT DTL Albumin, S 4.0 3.5 - 5.0 g/dL 09/27/2023 10:08 AM CDT DTL Aspartate Aminotransferase (AST), S 27 8 - 43 U/L 09/27/2023 10:08 AM CDT DTL Alkaline Phosphatase, S 138(H) 35 - 104 U/L 09/27/2023 10:08 AM CDT DTL Alanine Aminotransferase (ALT), S 8 7 - 45 U/L 09/27/2023 10:08 AM CDT DTL Bilirubin, Total, S 0.9 0.0 - 1.2 mg/dL 09/27/2023 10:08 AM CDT DTL Blood (Blood, Venous) 09/27/2023 8:54 AM CDT 09/27/2023 9:35 AM CDT Jonathan Richardson M.D. LAB BLOOD ADD-ON [facility] 200 [place] [address], [facility] DTL [facility][note 2] 200 [place] [address] * CBC with Differential, Blood (09/27/2023 8:54 AM CDT) Hemoglobin 13.4 11.6 - 15.0 g/dL 09/27/2023 9:53 AM CDT DTL Hematocrit 41.7 35.5 - 44.9 % 09/27/2023 9:53 AM CDT DTL Erythrocytes 4.60 3.92 - 5.13 x10(12)/L 09/27/2023 9:53 AM CDT DTL MCV 90.7 78.2 - 97.9 fL 09/27/2023 9:53 AM CDT DTL RBC Distrib Width 12.9 12.2 - 16.1 % 09/27/2023 9:53 AM CDT DTL Platelet Count 184 157 - 371 x10(9)/L 09/27/2023 9:53 AM CDT DTL Leukocytes 3.8 3.4 - 9.6 x10(9)/L 09/27/2023 9:53 AM CDT DTL Neutrophils 2.21 1.56 - 6.45 x10(9)/L 09/27/2023 9:53 AM CDT DH[facility] Lymphocytes 1.05 0.95 - 3.07 x10(9)/L 09/27/2023 9:53 AM CDT DTL Monocytes 0.43 0.26 - 0.81 x10(9)/L 09/27/2023 9:53 AM CDT DTL Eosinophils 0.04 0.03 - 0.48 x10(9)/L 09/27/2023 9:53 AM CDT DTL Basophils 0.04 0.01 - 0.08 x10(9)/L 09/27/2023 9:53 AM CDT DTL Blood (Blood, Venous) 09/27/2023 8:54 AM CDT 09/27/2023 9:17 AM CDT Jonathan Richardson M.D. LAB BLOOD ADD-ON [facility] [address] [place] [address], [place] DTL [facility] [place][note 2] [address] [place] [address] [facility] [address] [place] [address] documented in this encounter Visit Diagnoses Diagnosis Gammopathy Monoclonal Nonspecific documented in this encounter Care Teams Manufacturers Agent Relationship Specialty Start Date End Date Elsewhere, Pcp PCP - General Internal Medicine 12/28/22 documented as of this encounter
--- OUTSIDE RECORDS SUMMARY | 2023-09-28 11:55 | XMS_ITS | Encounter Summary ---
Author Organization [facility] Address [address] [place] [address] Care Team Providers Care Agriculture Laboratory Technician Name Role Phone Elsewhere, Pcp Primary Care Provider Unavailabl e Reason for Referral * Outpatient (Routine) - Authorized Specialty Diagnoses / Procedures Referred By Magno isaac Referred To Contact Hematology Oncology Jonathan Richardson M.D. [address] [place] [phone] [facility] Referral ID Status Reason Start Date Expiration Date V isits Requested Visits Authorized [id number] Authorized 09/27/2023 03/28/2025 1 1 Reason for Visit * Outpatient (Routine) - Closed Specialty Diagnoses / Procedures Referred By Magno isaac Referred To Contact Hematology Oncology Jonathan Richardson M.D. [address] [place] [phone] [facility] Referral ID Status Reason Start Date Expiration Date Visits Re quested Visits Authorized [id number] Closed 03/07/2023 03/06/2026 1 1 Encounter Details Date Type Department Care Team (Late st Contact Info) Description 09/27/2023 3:00 PM CDT Office Visit Division of Hematology in [place], [place] [address] [place] [phone] Jonathan Richardson M.D. [address] [place] [phone] Gammopathy Monoclonal Nonspecific (Primary Dx) Social History Tobacco Use Types Packs/Day Years Used Date Smoking Tobacco: Never Passive Smoke Exposure: Past Smokeless Tobacco: Never Passive Exposure Comments: ildhood exposure. Alcohol Use Standard Drinks/Week Comments Not Currently 0 (1 standard drink = 0.6 oz pur e alcohol) [facility] Utilities Answer Date Recorded In the past [...] week 04/04/2022 How often do you attend [facility] or roman catholic services? More than 4 times per year [...] and heating? Not hard at all 08/26/2022 [facility] Occupat ional Health - Occupational Stress [...] Sign Reading Time Taken Comments Blood Pressure 127/80 09/27/2023 2:51 PM CDT Pulse 53 09/27/2023 2:51 PM CDT Temperature 35.8 ??C (96.5 ??F) 09/27/2023 2:51 PM CD T Respiratory Rate - - Oxygen Saturation - - Inhaled Oxygen Concentration - - Weight 59.2 kg (130 lb 8.2 oz) 09/27/2023 2:51 P M CDT Height 161.4 cm (5' 3.54) 09/27/2023 2:51 PM CD T Body Mass Index 22.73 09/27/2023 2:51 PM CDT documented in this encounter Progress Notes * Jonathan Richardson M.D. - 09/27/2023 3:00 PM CDT SUBJECTIVE Consult conducted via real-time audio/video technology by Jonathan Richardson M.D. in [facility] to the patient in Patient's Home CHIEF COMPLAINT / REASON FOR VISIT Heaven Yoder is a 68 y.o. female presenting in referral from Jonathan Richardson M.D. for consultation in the evaluation of [...] 209 mg/d with a positive monoclonal kappa. 09/23: patient has been having bloody discharge from her colon. She is scheduled for a colonoscopy tomorrow. Patient was recently diagnosed with parkinsonism and has been started on Sinemet. The following portions of the patient's history were reviewed and updated as appropriate: allergies, current medications, family history, medical history, social history, surgical history, and problem list. Current Outpatient Medications: GaviLyte-G 236-22.74-6.74 -5.86 gram solution, 4pm day prior to procedure. Drink 8oz glass every 15minutes until 1/2 of solution is gone. 6 hours prior to procedure drink 8 oz glass every 15 minutesuntil remaining solution gone.*, Disp: , Rfl: acetaminophen (TYLENOL) 500 mg tablet, Take 500-1,000 mg by mouth every 6 (six) hours as needed forpain., Disp: , Rfl: carbidopa-levodopa (SINEMET) 25-100 mg per tablet, Take 1 tablet by mouth 3 (three) times a day., Disp: 270 tablet, Rfl: 3 folic acid-vitamin B6,B12 (FOLBEE) 2.5-25-1 mg per tablet, To prevent homocysteine. Take one tab daily, Disp: 90 tablet, Rfl: 3 levothyroxine (SYNTHROID, LEVOTHROID) 75 mcg tablet, Take 1 tablet by mouth every morning., Disp: ,Rfl: melatonin 10 mg tablet, Take 10 mg by mouth at bedtime as needed., Disp: , Rfl: multivitamin (DAILY VITAMIN ORAL), , Disp: , Rfl: polyethylene glycol (Miralax) 17 gram/dose oral powder, Take 17 g by mouth as needed., Disp: , Rfl: psyllium husk (METAMUCIL ORAL), Take 1 Dose by mouth daily. Mix 1 tsp of powder with water daily., Disp: , Rfl: ursodioL (ActigalL) 300 mg capsule, take one capsule by mouth three times daily, Disp: 270 capsule,Rfl: 0 REVIEW OF SYSTEMS Gastrointestinal: Positive for constipation. Genitourinary: Positive for frequent urination (nocturia). Psychiatric/Behavioral: Positive for feeling down, depressed, or hopeless over past two weeks. The following systems were negative: Constitutional, Skin, Eyes, ENT, Respiratory, Cardiovascular, Hematologic, Musculoskeletal OBJECTIVE BP 127/80 (BP Location: Right arm, Patient Position: Sitting, Cuff Size: Regular) Pulse (!) 53 Temp (!) 35.8 ??C (Tympanic) Ht 161.4 cm Wt 59.2 kg BMI 22.73 kg/m?? PHYSICAL EXAM Physical Exam ASSESSMENT / PLAN #1 Gammopathy Monoclonal Nonspecific Monoclonal protein labs are stable. [place] to lambda free light chain ratio is 6.58 from 6.48. IgM actually went down from 1330 to 1210. There is a small amount of urine protein at 270 mg. Will get a urine retinol binding protein. If that is negative, will repeat testing in 1 year. 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 #3 Parkinsonism On Sinemet #4 Bloody discharge from the rectum Patient is scheduled for colonoscopy tomorrow.. documented in this encounter Plan of Treatment Scheduled Orders Name Type Priority Associated Diagnoses Orde r Schedule Retinol-Binding Protein, Random, Urine Lab Routine Gammopathy Monoclonal Nonspecific Expected: 09/27/2023, Expires: 12/27/2024 Immunoglobulin Free Light Chains Lab Routine Gammopathy Monoclonal Nonspecific Expected: 09/26/2024 (Approximate), Expires: 09/26/2024 CBC with Differential, Blood Lab Routine Gammopathy Monoclonal Nonspecific Expected: 09/26/2024 (Approximate), Expires: 09/26/2024 Monoclonal Protein Screen, 24 hour, Urine Lab Routine Gammopathy Monoclonal Nonspecific Expected: 09/26/2024 (Approximate), Expires: 12/27/2024 Quantitative M-protein Study Lab Routine Gammopathy Monoclonal Nonspecific Expected: 09/26/2024 (Approximate), Expires: 12/27/2024 Cryoglobulin Lab Routine Gammopathy Monoclonal Nonspecific Expected: 09/26/2024 (Approximate), Expires: 12/27/2024 Comprehensive Metabolic Panel Lab Routine Gammopathy Monoclonal Nonspecific Expected: 09/26/2024 (Approximate), Expires: 09/26/2024 Immunoglobulins (IgG, IgA, and IgM) Lab Routine Gammopathy Monoclonal Nonspecific Expected: 09/26/2024 (Approximate), Expires: 12/27/2024 LD (Lactate Dehydrogenase) Lab Routine Gammopathy Monoclonal Nonspecific Expected: 09/26/2024 (Approximate), Expires: 12/27/2024 Scheduled Referrals Name Type Priority Associated Diagnoses Order Schedule Hematology office visit (clinic) [facility]; [facility]; General Outpatient Referral Routine Expected: 09/26/2024 (Approximate), Expires: 12/27/2024 documented as of this encounter Visit Diagnoses Diagnosis Gammopathy Monoclonal Nonspecific- Primary documented in this encounter Care Teams Agriculture Laboratory Technician Relationship Specialty Start Date End Date Elsewhere, Pcp PCP - General Internal Medicine 12/28/22 documented as of this encounter
--- OUTSIDE RECORDS SUMMARY | 2023-09-28 11:55 | XMS_ITS | Encounter Summary ---
Author Organization [facility] Address [address] [place] [address] Care Team Providers Care Vision Rehabilitation Therapist Name Role Phone Elsewhere, Pcp Primary Care Provider Unavailabl e Reason for Visit * Reason Comments Med Refill Encounter Details Date Type Department Care Team ([facility] st Contact Info) Description 09/20/2023 Refill Division of Gastroenterology in [place], [place] [address] [place] [phone] Buddy Ceja M.D. [address] [place] [phone] Med Refill Social History Tobacco Use Types Packs/Day Years Used Date Smoking Tobacco: Never Passive Smoke Exposure: Past Smokeless Tobacco: Never Passive Exposure Comments:Ch ildhood exposure. Alcohol Use Standard Drinks/Week Comments Not Currently 0 (1 standard drink = 0.6 oz pur e alcohol) [facility] Utilities Answer Date Recorded In the past 12 months has [facility] [employer] gas, oil, or water [email or web address] threatened to shut off services in your [...] often do you attend chur ch or spiritism services? More than 4 times per year 04/04/2022 Do you belong to any clubs o r organizations such as baptism groups, unions, fraternal or athletic groups, or [...] heating? Not hard at all 08/26/2022 [facility] of Occupat ional Health - Occupational Stress [...] your living situation today? I have a [facility] place to live 07/20/2023 Education Answer [...] on file documented as of this encounter Visit Diagnoses Diagnosis Cholestasis Intrahepatic (HCC) documented in this encounter Care Teams Vision Rehabilitation Therapist Relationship Specialty Start Date End Date Elsewhere, Pcp PCP - General Internal Medicine 12/28/22 documented as of this encounter
--- OUTSIDE RECORDS SUMMARY | 2023-09-28 11:55 | XMS_ITS | Continuity of Care Document ---
Author Organization [facility] Address [address] [place] [address] Phone Care Team Providers Care Technical Solutions Engineer Name Role Phone Lissette Lee MD Unavailable [...] Consultants , [address], [place], [address], [place] tel:[phone] [facility] , No Information 4 Jesus Mclaughlin. [facility] [address], [place], [address], [place]. tel:[phone] Office/Outpa tient Visit, New [facility] , [address], [place], [address], [place] tel:[phone] [facility] , suspected vasculitis (chief complaint) Arteritis, unspecifiedO ther specified disorders of biliary tract 4 Jesus Mclaughlin. [facility] [address], [place], [address], [place]. tel:[phone] Referring Provider: Lissette Adames, [facility] [address], [place], [address]. tel:[phone] Subsequent Hospital Care [facility] , [address], [place], [address], [place] tel:[phone] [facility] No Information 4 Moi Ramirez. [facility] [address], [place], [address], [place]. tel:[phone] Referring Provider: Ashley Avila, [facility] [address], [place], [address]. tel:[phone] Initial Hospital Care [facility] , [address], [place], [address], [place] tel:[phone] [facility] No Information 4 Jesus Mclaughlin. [facility] [address], [place], [address], [place]. tel:[phone] Referring Provider: Lissette Adames, [facility] [address], [place], [address]. tel:[phone] Family History Family Member Type Diagnosis Age At Onset No Information Payers Payer name Insurance type Covered constitution party ID Authorsteven lind(s) [facility] [id number] Social History Type Description Quantity Date Captured [...]
--- OUTSIDE RECORDS SUMMARY | 2023-09-28 11:55 | XMS_ITS | Clinical Summary ---
Author Organization [facility] Address [address] [place] [address] Care Team Providers Care Reimbursement Liaison Name Role Phone Elsewhere, Pcp Primary Care Provider Unavailabl e Source Comments Patient records contain information from all sites at [facility]. For routine questions regarding patient records, call [phone] during business hours, M-F 8:00 AM - 5:00 PM Central Time. Record requests for emergency care only can be directed to [phone] at any time.[facility] Allergies No known active allergies Medications Medication [...] tab daily 90 tablet 3 07/24/2023 Active carbidopa-levodop a (SINEMET) 25-100 mg per tablet Take 1 tablet by mouth 3 (three) times a day. 270 tablet 3 08/09/2023 Active ursodioL (ActigalL) 300 mg capsuleIndication s:Cholestasis Intrahepatic (HCC) take one capsule by mouth three times daily 270 capsule 09/20/2023 Active multivitamin (DAILY VITAMIN ORAL) 04/02/2023 Active GaviLyte-G 236-22.74-6.74 -5.86 gram solution 4pm day prior to procedure. Drink 8oz glass every 15 minutes until 1/2 of solution is gone. 6 hours prior to procedure drink 8 oz glass every 15 minutes until remaining solution gone.* 09/25/2023 Active ursodioL (ACTIGALL) 300 mg capsuleIndication s:Cholestasis Intrahepatic (HCC) Take 1 capsule (300 mg [...] Encounters Date Type Department Care Team Description 09/27/2023 3:00 PM CDT Office Visit Division of Hematology in [address] [phone] Jonathan Richardson M.D. Gammopathy Monoclonal Nonspecific (Primary Dx) 09/27/2023 8:30 AM CDT - 09/27/2023 11:59 PM CDT Hospital Encounter Department of Laboratory Medicine and Pathology, [facility], in [place], [place] [address] [place] [phone] Jonathan Richardson M.D. Gammopathy Monoclonal Nonspecific Discharge Disposition: Home or Self Care 09/25/2023 2:00 PM CDT Clinical Communication Virtual Review in [place], [place] 200 [place] [address] 09/25/2023 Clinical Communication Division of Hematology in [place], [place] [address] [place] [phone] Jonathan Richardson M.D. 09/20/2023 Refill Division of Gastroenterology in [place], [place] [address] [place] [phone] Buddy Ceja M.D. Med Refill 08/08/2023 Refill RST PRABHU Riri Harding M.D., Ph.D. Med Refill 08/06/2023 7:09 AM CDT - 08/06/2023 11:59 PM CDT Hospital Encounter Department of Laboratory Medicine and Pathology, [facility] in [place], [place] [address] [place] [address] Jonathan Richardson M.D. Gammopathy Monoclonal Nonspecific Discharge Disposition: Home or Self Care 07/24/2023 2:30 PM CDT Comprehensive Visit Department of Neurology in [place], [place] [address] [place] [phone] Riri Harding M.D., Ph.D. Parkinsonism Unspecified (HCC) (Primary Dx) 07/23/2023 7:45 AM CDT Clinical Communication Virtual Review in [place], [place] 200 [place] [address] Pre-visit Intake from Last 3 Months Family History Medical [...] 0.6 oz pur e alcohol) [facility] Utilities Answer Date Recorded In the past 12 months has e [employer], gas, oil, or water [employer] threatened to shut off services in your [...] often do you attend chur ch or orthodox services? More than 4 times per year 04/04/2022 Do you belong to any clubs o r organizations such as religious groups, unions, fraternal or athletic groups, or [...] heating? Not hard at all 08/26/2022 [facility] of Occupat ional Health - Occupational [...] your living situation today? I have a [facility] place to live 07/20/2023 Education Answer [...] 09/27/2023 2:51 PM CD T Respiratory Rate 16 12/28/2022 1:00 PM CDT Oxygen Saturation 97% 12/28/2022 1:00 PM CDT Inhaled Oxygen Concentration - - Weight 59.2 kg (130 lb 8.2 oz) 09/27/2023 2:51 P M CDT Height 161.4 cm (5' 3.54) 09/27/2023 2:51 PM CD T Body Mass Index 22.73 09/27/2023 2:51 PM CDT Plan of Treatment Health Maintenance Due Date Last Done Comments Bone Density Scan (Osteoporo sis Screen) 1956 CT Colonography 1956 Cologuard 1956 FIT 1955 Thyroid Stimulating Hormone (TSH) test for thyroid function 08/20/2015 08/19/2014, 06/15/2014 Mammogram 07/03/2017 07/03/2016 (Perf ormed elsewhere), 07/12/2015 (Performed elsewhere), 07/31/2013 (Performed elsewhere) Depression Screening (Annual PHQ-2) 04/02/2023 Fall Risk Screen (Annual) 04/02/2023 COVID-19 Vaccine (2022-05 4 season) 2023 04/13/2023, 01/25/2022, 03/09/2021, Additional history exists Colonoscopy 07/01/2024 07/01/2014 (Perf ormed elsewhere) Colorectal Cancer Screening 07/01/2024 Fasting Glucose for Diabetes Screening 09/26/2026 09/27/2023, 01/24/2023, 04/07/2022, Additional history exists DTaP,Tdap,and Td Vaccines (3 [...] history exists Medical Devices Explanted Type Area Cage Loader Device Identifier Shelf Expiration Date Model / Serial / Lot Clp Apr Lgs Int Sm 9.0 - [id number] Explanted:Qty : 1 on 12/28/2022 at [facility] Hardware e.g. pins/screws/ rods [employer] [id number] 09/30/2027 MCS20 / / [id number] Clp Apr [facility] Intdash Polk 9.75 - [id number] Explanted:Qty : 1 on 12/28/2022 at [facility] Hardware e.g. pins/screws/ rods [employer] [id number] / / Procedures Procedure Name Priority Date/Time Associated Diagnosis Comments IMMUNOGLOBULIN FREE LIGHT CHAINS, S Routine 09/27/2023 8:54 AM CDT QUANTITATIVE M-PROTEIN STUDY, S Routine 09/27/2023 8:54 AM CDT NT-PRO B-TYPE NATRIURETIC PEPTIDE (BNP), S Routine 09/27/2023 8:54 AM CDT Gammopathy Monoclonal Nonspecific VISCOSITY, S Routine 09/27/2023 8:54 AM CDT Gammopathy Monoclonal Nonspecific LACTATE DEHYDROGENASE (LD), S Routine 09/27/2023 8:54 AM CDT Gammopathy Monoclonal Nonspecific COMPREHENSIVE METABOLIC PANEL, S/P Routine 09/27/2023 8:54 AM CDT Gammopathy Monoclonal Nonspecific CBC WITH DIFFERENTIAL, B Routine 09/27/2023 8:54 AM CDT Gammopathy Monoclonal Nonspecific ELECTROPHORESIS, PROTEIN, 24 HR, U Routine 09/26/2023 7:37 AM CDT Gammopathy Monoclonal Nonspecific THYROID FUNCTION CASCADE, S Routine 08/19/2014 9:05 AM CDT from Last 3 Months or Most Recently Relevant to Health Maintenance Results * (ABNORMAL) Quantitative M-protein Study (09/27/2023 8:54 [...] developed and its performance characteristics determined by [facility] in a manner consistent with CLIA requirements. This test has not been cleared or approved by the U.S. Food and Drug Administration. Blood 09/27/2023 8:54 AM CDT 09/27/2023 12:53 PM CDT Narrative [facility] - 09/28/2023 9:26 AM CDT Specimen Information: Specimen ID: [id number] Specimen Type: Blood Specimen Collection Start Date: 09/27/2023 ??8:54 AM Specimen Received Date: 09/27/2023 12:53 PM Specimen ID: [id number] Specimen Type: Blood Specimen Collection Start Date: 09/27/2023 ??8:54 AM Specimen Received Date: 09/27/2023 ??1:02 PM Jonathan Richardson M.D. LAB BLOOD ADD-ON [facility] [address] [place] [address] [facility] [address] [place] [address] [facility] [address] [place] [address] [place] [address] * NT-Pro B-Type Natriuretic Peptide (BNP) (09/27/2023 8:54 AM CDT) [facility] NT-Pro BNP 367 <=540 pg/mL 09/27/2023 10:08 AM CDT [facility] Comment: NT-proBNP values less than 300 pg/mL [...] CDT Jonathan Richardson M.D. LAB BLOOD ADD-ON Performing Organization Address City/[facility]/ZIP Co de Phone Number [facility] 200 [place] [address], [facility] [address] [place] [address] * Viscosity (09/27/2023 8:54 AM CDT) [facility] Viscosity, S 1.1 <=1.5 cpoise 09/28/2023 10:25 AM CDT [facility] Comment: ----ADDITIONAL INFORMATION---- This test has been modified from the rn or lpn's instructions. Its performance characteristics were determined by [facility] in a manner consistent with CLIA requirements. This test has not been cleared or approved by the U.S. Food and Drug Administration. Blood (Blood, Venous) 09/27/2023 8:54 AM CDT 09/28/2023 6:57 AM CDT Jonathan Richardson M.D. LAB BLOOD NON ADD-ON [facility] [address] [place] [address] [facility] [address] [place] [address] * (ABNORMAL) Immunoglobulin Free Light Chains (09/27/2023 8:54 AM CDT) [facility] [place] Free Light Chain, S 7.43(H) 0.3300 - 1.94 mg/dL 09/27/2023 1:44 PM CDT [facility] Lambda Free Light Chain, S 1.13 0.5700 - 2.63 mg/dL 09/27/2023 1:44 PM CDT [facility] [place]/Lambda FLC Ratio 6.58(H) 0.2600 - 1.65 09/27/2023 1:44 PM CDT [facility] Blood 09/27/2023 8:54 AM CDT 09/27/2023 1:02 PM CDT Jonathan Richardson M.D. LAB BLOOD ADD-ON [facility] [address] [place] [address] [facility] [address] [place] [address] * CBC with Differential, Blood (09/27/2023 8:54 AM CDT) Pathologist [facility] Hemoglobin 13.4 11.6 - 15.0 g/dL 09/27/2023 [...] CDT Jonathan Richardson M.D. LAB BLOOD ADD-ON Performing Organization Address City/[facility]/ZIP Co de Phone Number [facility] [address] [place] [address], [facility] [id number] [place] [address] * LD (Lactate Dehydrogenase) (09/27/2023 8:54 AM CDT) Lactate Dehydrogenase (LD), S 135 122 - 222 U/L 09/27/2023 10:08 AM CDT DTL Blood (Blood, Venous) 09/27/2023 8:54 AM CDT 09/27/2023 9:35 AM CDT Jonathan Richardson M.D. LAB BLOOD NON ADD-ON [facility] 200 [place], [place] [address] [address] [place] [address] * (ABNORMAL) Comprehensive Metabolic Panel (09/27/2023 8:54 AM CDT) Potassium, S 4.2 3.6 - 5.2 mmol/L [...] CDT Jonathan Richardson M.D. LAB BLOOD ADD-ON [address] [address] DTL [facility] [address] [place] [address] * Thyroid Function [employer] (08/19/2014 9:05 AM CDT) TSH, Sensitive 0.5 0.3 - 4.2 MIU/L [facility] 08/19/2014 9:05 AM CDT 08/19/2014 9:05 AM CDT Jori Harley LAB BLOOD ADD-ON [facility] [address] [place], [place] [address] from Last 3 Months or Most Recently Relevant to Health Maintenance Care Teams Reimbursement Liaison Relationship Specialty Start Date End Date Elsewhere, Pcp PCP - General Internal Medicine 12/28/22
--- OUTSIDE RECORDS SUMMARY | 2023-09-28 11:55 | XMS_ITS | Encounter Summary ---
Author Organization [facility] Address [address] [place] [address] Care Team Providers Care Hard Rock Miner Blasting Name Role Phone Elsewhere, Pcp Primary Care Provider Unavailabl e Encounter Details Date Type Department Care Team (Latest Contact Info) Description 08/06/2023 7:09 AM CDT - 08/06/2023 11:59 PM CDT Hospital Encounter Department of Laboratory Medicine and Pathology, [facility] in [place], [place] [address] [place] [address] Jonathan Richardson M.D. [address] [place] [phone] Gammopathy Monoclonal Nonspecific Discharge Disposition: Home or Self Care Social History Tobacco Use Types Packs/Day Years Used Date Smoking Tobacco: Never Passive Smoke Exposure: Past Smokeless Tobacco: Never Passive Exposure Comments:Ch ildhood exposure. Alcohol Use Standard Drinks/Week Comments Not Currently 0 (1 standard drink = 0.6 oz pur e alcohol) [facility] Utilities Answer Date Recorded In the past 12 months has [employer], gas, oil, or water [employer] threatened to shut off services in your [...] often do you attend chur ch or pentecostalism services? More than 4 times per year 04/04/2022 Do you belong to any clubs o r organizations such as mu-ism groups, unions, fraternal or athletic groups, or [...] and heating? Not hard at all 08/26/2022 [facility] of Occupat ional Health - [...] your living situation today? I have a [facility] place to live 07/20/2023 Education Answer [...] as of this encounter Plan of Treatment Pending Results Name Type Priority Associated Diagnoses Date /Time Electrophoresis, Protein, 24 hour, Urine Lab Routine Gammopathy Monoclonal Nonspecific 09/26/2023 7:37 AM CDT documented as of this encounter Procedures Procedure Name Priority Date/Time Associated Diagnosis Comments ELECTROPHORESIS, PROTEIN, 24 HR, U Routine 09/26/2023 7:37 AM CDT Gammopathy Monoclonal Nonspecific documented in this encounter Visit Diagnoses Diagnosis Gammopathy Monoclonal Nonspecific documented in this encounter Care Teams Hard Rock Miner Blasting Relationship Specialty Start Date End Date Elsewhere, Pcp PCP - General Internal Medicine 12/28/22 documented as of this encounter
--- OUTSIDE RECORDS SUMMARY | 2023-09-28 11:55 | XMS_ITS | Encounter Summary ---
Author Organization [facility] Address [address] [place] [address] Care Team Providers Care Commercial Real Estate Sales Manager Name Role Phone Elsewhere, Pcp Primary Care Provider Unavailabl e Reason for Visit * Appointment Request (Routine) - Closed Specialty Diagnoses / Procedures Referred By Magno t Referred To Contact Neurology Diagnoses Parkinsonism (HCC) Referral ID Status Reason Start Date Expiration Date Visits Re quested Visits Authorized [id number] Closed 04/04/2023 04/03/2024 1 1 Encounter Details Date Type Department Care Team (Latest Contact Info) Description 07/24/2023 2:30 PM CDT Comprehensive Visit Department of Neurology in [place], [place] [address] [place] [phone] Riri Harding M.D., Ph.D. [address] [place] [phone] Parkinsonism Unspecified (HCC) (Primary Dx) Social History Tobacco Use Types Packs/Day Years Used Date Smoking Tobacco: Never Passive Smoke Exposure: Past Smokeless Tobacco: Never Passive Exposure Comments:Ch ildhood exposure. Alcohol Use Standard Drinks/Week Comments Not Currently 0 (1 standard drink = 0.6 oz pur e alcohol) [facility] Utilities Answer Date Recorded In the past [...] often do you attend chur ch or hoahaoism services? More than 4 times per year 04/04/2022 Do you belong to any clubs o r organizations such as yarsanism groups, unions, fraternal or athletic groups, or [...] and heating? Not hard at all 08/26/2022 [facility] [place] of Occupat ional Health - Occupational Stress [...] your living situation today? I have a [facility] place to live 07/20/2023 Education Answer [...] I later found, by Dr. Steinberg in [place]. He wrote that at that time, she [...] an uncle with Parkinson's disease. Examination: The vest front presser recorded her standing blood pressure and obtain [...] escalate the dose any further. This may turn sewer to be her dose going forward and [...] documented in this encounter Plan of Treatment Not on file documented as of this encounter Visit Diagnoses Diagnosis Parkinsonism Unspecified (HCC)- Primary documented in this encounter Care Teams Commercial Real Estate Sales Manager Relationship Specialty Start Date End Date Elsewhere, Pcp PCP - General Internal Medicine 12/28/22 documented as of this encounter
--- OUTSIDE RECORDS SUMMARY | 2023-09-28 11:55 | XMS_ITS | Referral Summary ---
Author Organization [facility] Address [address] [place] [address] Care Team Providers Care Digital Field Service Technician Name Role Phone Elsewhere, Pcp Primary Care Provider Unavailabl e Source Comments Patient records contain information from all sites at [facility]. For routine questions regarding patient records, call [phone] during business hours, M-F 8:00 AM - 5:00 PM Central Time. Record requests for emergency care only can be directed to [phone] at any time.[facility] Encounters Date Type Department Care Team Description 09/27/2023 8:30 AM CDT - 09/27/2023 11:59 PM CDT Hospital Encounter Department of Laboratory Medicine and Pathology, [facility] in [address] [phone] Jonahtan Richardson M.D. Gammopathy Monoclonal Nonspecific Discharge Disposition: Home or Self Care 09/27/2023 3:00 PM CDT Office Visit Division of Hematology in [place], [place] [address] [place] [phone] Jonathan Richardson M.D. Gammopathy Monoclonal Nonspecific (Primary Dx) 09/25/2023 Clinical Communication Division of Hematology in [place], [place] [address] [place] [phone] Jonathan Richardson M.D. 09/25/2023 2:00 PM CDT Clinical Communication Virtual Review in [place], [place] 200 [place] [phone] 09/20/2023 Refill Division of Gastroenterology in [place], [place] [address] [place] [phone] Buddy Ceja M.D. Med Refill 08/08/2023 Refill RST PRABHU Riri Harding M.D., Ph.D. Med Refill 08/06/2023 7:09 AM CDT - 08/06/2023 11:59 PM CDT Hospital Encounter Department of Laboratory Medicine and Pathology, [facility], in [place], [place] [address] [place] [phone] Jonathan Richardson M.D. Gammopathy Monoclonal Nonspecific Discharge Disposition: Home or Self Care 07/24/2023 2:30 PM CDT Comprehensive Visit Department of Neurology in [place], [place] [address] [place] [phone] Riri Harding M.D., Ph.D. Parkinsonism Unspecified (HCC) (Primary Dx) 07/23/2023 7:45 AM CDT Clinical Communication Virtual Review in [place], [place] 200 [place] [address] Pre-visit Intake from Last 3 Months Allergies No known [...] EKG 2006, normal stress echocardiogram in 2004 Social History Tobacco Use Types Packs/Day Years Used Date Smoking Tobacco: Never Passive Smoke Exposure: Past Smokeless Tobacco: Never Tobacco Cessation:Counseling Given: Not Answered Passive Exposure Comments:Childhood exposure. Alcohol Use Standard Drinks/Week Comments Not Currently 0 (1 standard drink = 0.6 oz pur e alcohol) [facility] Utilities Answer Date Recorded In the past 12 months has e [employer] gas, oil, or water [employer] threatened to shut off services in your [...] often do you attend chur ch or hinduism services? More than 4 times per year 04/04/2022 Do you belong to any clubs o r organizations such as pentecostal groups, unions, fraternal or athletic groups, or [...] all 08/26/2022 [facility] of Occupat ional Health - Occupational Stress [...] your living situation today? I have a [facility] place to live 07/20/2023 Education [...] 09/27/2023 2:51 PM CDT Plan of Treatment Not on file Medical Devices Explanted Type Area Manager Park Device Identifier Shelf Expiration Date Model / Serial / Lot Clp Apr Lgs Intnl Sm 9.0 - [id number] Explanted:Qty : 1 on 12/28/2022 at [facility] Hardware e.g. pins/screws/ rods [employer] [id number] 09/30/2027 MCS20 / / [id number] Clp Apr Lgc Intnl Shrt 9.75 - [id number] Explanted:Qty : 1 on 12/28/2022 at [facility] Hardware e.g. pins/screws/ rods [employer] MSM20 [...] developed and its performance characteristics determined by [facility] in a manner consistent with CLIA requirements. This test has not been cleared or approved by the U.S. Food and Drug Administration. Blood 09/27/2023 8:54 AM CDT 09/27/2023 12:53 PM CDT [facility] - 09/28/2023 9:26 AM CDT Specimen Information: Specimen ID: [id number] Specimen Type: Blood Specimen Collection Start Date: 09/27/2023 ??8:54 AM Specimen Received Date: 09/27/2023 12:53 PM Specimen ID: [id number] Specimen Type: Blood Specimen Collection Start Date: 09/27/2023 ??8:54 AM Specimen Received Date: 09/27/2023 ??1:02 PM Jonathan Richardson M.D. LAB BLOOD ADD-ON [facility] [address] [place] [address] [facility] [address] [place] [address] [facility] [address] [place] [address] [place] [address] * NT-Pro B-Type Natriuretic Peptide (BNP) (09/27/2023 8:54 AM CDT) Pathologist [facility] NT-Pro BNP 367 <=540 pg/mL 09/27/2023 10:08 AM CDT [facility] Comment: NT-proBNP values less than 300 pg/mL [...] M.D. LAB BLOOD ADD-ON Performing Organization Address City/[facility]/ZIP Co de Phone Number [facility] [address] [place], [place] [address] [place] [address] [address] [place] [address] * Viscosity (09/27/2023 8:54 AM CDT) [facility] Viscosity, S 1.1 <=1.5 cpoise 09/28/2023 10:25 AM CDT [facility] Comment: ----ADDITIONAL INFORMATION---- This test has been modified from the drum maker's instructions. Its performance characteristics were determined by [facility] in a manner consistent with CLIA requirements. This test has not been cleared or approved by the U.S. Food and Drug Administration. Blood (Blood, Venous) 09/27/2023 8:54 AM CDT 09/28/2023 6:57 AM CDT Jonathan Richardson M.D. LAB BLOOD NON ADD-ON Performing Organization Address City/[facility]/ZIP Co de Phone Number [facility] [address] [place] [address] [facility] [address] [place] [address] * (ABNORMAL) Immunoglobulin Free Light Chains (09/27/2023 8:54 AM CDT) Pathologist [facility] [place] [facility] Free Light Chain, S 7.43(H) 0.3300 - 1.94 mg/dL 09/27/2023 1:44 PM CDT [facility] Lambda Free Light Chain, S 1.13 0.5700 - 2.63 mg/dL 09/27/2023 1:44 PM CDT [facility] [place]/Lambda FLC Ratio 6.58(H) 0.2600 - 1.65 09/27/2023 1:44 PM CDT [facility] Blood 09/27/2023 8:54 AM CDT 09/27/2023 1:02 PM CDT Jonathan Richardson M.D. LAB BLOOD ADD-ON [facility] [address] [place] [address] [facility] [address] [place] [address] * CBC with Differential, Blood (09/27/2023 8:54 AM CDT) [facility] Hemoglobin 13.4 11.6 - 15.0 g/dL 09/27/2023 [...] M.D. LAB BLOOD ADD-ON Performing Organization Address City/[facility]/ZIP Co de Phone Number [facility] [address] [facility] [address] 200 [place] [address] * LD (Lactate Dehydrogenase) (09/27/2023 8:54 AM CDT) [facility] Lactate Dehydrogenase (LD), S 135 122 - 222 U/L 09/27/2023 10:08 AM CDT DTL Blood (Blood, Venous) 09/27/2023 8:54 AM CDT 09/27/2023 9:35 AM CDT Jonathan Richardson M.D. LAB BLOOD NON ADD-ON [facility] [address] [place] [address] * (ABNORMAL) Comprehensive Metabolic Panel (09/27/2023 8:54 AM CDT) [facility] Potassium, S 4.2 3.6 - 5.2 mmol/L [...] CDT Jonathan Richardson M.D. LAB BLOOD ADD-ON [facility] [address] [place] [address], [facility] DTL [facility] [address] [place] [address] * Thyroid Function [place] (08/19/2014 9:05 AM CDT) TSH, Sensitive 0.5 0.3 - 4.2 MIU/L [facility] 08/19/2014 9:05 AM CDT 08/19/2014 9:05 AM CDT Jori Harley LAB BLOOD ADD-ON [facility] [address] [place] [address], [facility] from Last 3 Months or Most Recently Relevant to Health Maintenance Care Teams Digital Field Service Technician Relationship Specialty Start Date End Date Elsewhere, Pcp PCP - General Internal Medicine 12/28/22
--- OUTSIDE RECORDS SUMMARY | 2023-09-28 11:55 | XMS_ITS | Encounter Summary ---
[facility] Address [address] [place] [address] Care Team Providers Care Tool Room Attendant Name Role Phone Elsewhere, Pcp Primary Care Provider Unavailabl e Encounter Details Date Type Department Care Team (Latest Contact Info) Description 09/25/2023 2:00 PM CDT Clinical Communication Virtual Review in [place], [place] [address] [place] [address] Social History Tobacco Use Types Packs/Day Years Used Date Smoking Tobacco: Never Passive Smoke Exposure: Past Smokeless Tobacco: Never Passive Exposure Comments:Ch ildhood exposure. Alcohol Use Standard Drinks/Week Comments Not Currently 0 (1 standard drink = 0.6 oz pur e alcohol) [facility] Utilities Answer Date Recorded In the past 12 months has e electric, gas, oil, or water [employer] threatened to shut off services in your [...] often do you attend chur ch or episcopalian services? More than 4 times per year 04/04/2022 Do you belong to any clubs o r organizations such as mandaeism groups, unions, fraternal or athletic groups, or [...] and heating? Not hard at all 08/26/2022 [facility] of Occupat ional Health - Occupational Stress [...] your living situation today? I have a [facility] place to live 07/20/2023 Education Answer [...] on filedocumented in this encounter Care Teams Tool Room Attendant Relationship Specialty Start Date End Date Elsewhere, Pcp PCP - General Internal Medicine 12/28/22 documented as of this encounter
--- OUTSIDE RECORDS SUMMARY | 2023-09-28 11:55 | XMS_ITS | Encounter Summary ---
Author Organization [facility] Address [address] [place] [address] Care Team Providers Care Instrumental Musician Name Role Phone Elsewhere, Pcp Primary Care Provider Unavailabl e Reason for Visit * Reason Comments Med Refill Encounter Details Date Type Department Care Team ([facility] st Contact Info) Description 06/24/2023 Refill Division of Gastroenterology in [place], [place] [address] [place] [phone] Buddy Ceja M.D. [address] [place] [address] Med Refill Social History Tobacco Use Types [...] often do you attend chur ch or restoration services? More than 4 times per year 04/04/2022 Do you belong to any clubs o r organizations such as anabaptism groups, unions, fraternal or athletic groups, or [...] and heating? Not hard at all 08/26/2022 [facility] of Occupat ional Health [...] your living situation today? I have a [facility] place to live 08/26/2022 Education Answer [...] (HCC) documented in this encounter Care Teams Instrumental Musician Relationship Specialty Start Date End Date Elsewhere, Pcp PCP - General Internal Medicine 12/28/22 documented as of this encounter
--- OUTSIDE RECORDS SUMMARY | 2023-09-28 11:55 | XMS_ITS | Encounter Summary ---
Author Organization [facility] Address [address] [place] [address] Care Team Providers Care Key Holder Name Role Phone Elsewhere, Pcp Primary Care Provider Unavailabl e Encounter Details Date Type Department Care Team (Late st Contact Info) Description 09/25/2023 Clinical Communication Division of Hematology in [place], [place] [address] [place] [phone] Jonathan Richardson M.D. [address] [place] [address] Social History Tobacco Use Types Packs/Day Years Used Date Smoking Tobacco: Never Passive Smoke Exposure: Past Smokeless Tobacco: Never Passive Exposure Comments:Ch ildhood exposure. Alcohol Use Standard Drinks/Week Comments Not Currently 0 (1 standard drink = 0.6 oz pur e alcohol) [facility] Utilities Answer Date Recorded In the past 12 months has [facility] [employer], gas, oil, or water [employer] threatened to shut off services in your [...] How often do you attend chur or synagogue services? More than 4 times per year [...] and heating? Not hard at all 08/26/2022 [facility] of Occupat ional Health - Occupational Stress [...] your living situation today? I have a [facility] place to live 07/20/2023 Education [...] on filedocumented in this encounter Care Teams Key Holder Relationship Specialty Start Date End Date Elsewhere, Pcp PCP - General Internal Medicine 12/28/22 documented as of this encounter
--- OUTSIDE RECORDS SUMMARY | 2023-09-28 11:55 | XMS_ITS | Encounter Summary ---
Author Organization [facility] Address [address] [place] [address] Care Team Providers Care Psychiatric Clinical Nurse Specialist Name Role Phone Elsewhere, Pcp Primary Care Provider Unavailabl e Reason for Visit * Reason Comments Med Refill Encounter Details Date Type Department Care Team (Latest Contact Info) Description 08/08/2023 Refill RST Riri Alvares M.D., Ph.D. [address] [place] [address] Med Refill Social History Tobacco Use Types Packs/Day Years Used Date Smoking Tobacco: Never Passive Smoke Exposure: Past Smokeless Tobacco: Never Passive Exposure Comments:Ch ildhood exposure. Alcohol Use Standard Drinks/Week Comments Not Currently 0 (1 standard drink = 0.6 oz pur e alcohol) [facility] Utilities Answer Date Recorded In the past 12 months has [facility] [employer], gas, oil, or water [employer] threatened to shut off services in your [...] How often do you attend chur or confucianist services? More than 4 times per year 04/04/2022 Do you belong to any clubs o r organizations such as quaker groups, unions, fraternal or athletic groups, or [...] and heating? Not hard at all 08/26/2022 [facility] of Occupat ional Health - Occupational Stress [...] on filedocumented in this encounter Care Teams Psychiatric Clinical Nurse Specialist Relationship Specialty Start Date End Date Elsewhere, Pcp PCP - General Internal Medicine 12/28/22 documented as of this encounter
--- OUTSIDE RECORDS SUMMARY | 2023-09-28 11:55 | XMS_ITS | Encounter Summary ---
Author Organization [facility] Address [address] [place] [address] Care Team Providers Care Bread Slicer Machine Name Role Phone Elsewhere, Pcp Primary Care Provider Unavailabl e Reason for Visit * Reason Onset Date Comments Pre-visit Intake 07/23/2023 * Appointment Request (Routine) - Authorized Specialty Diagnoses / Procedures Referred By Magno t Referred To Contact Neurology Referral ID Status Reason Start Date Expiration Date V isits Requested Visits Authorized [id number] Authorized 06/07/2023 06/06/2024 1 1 Encounter Details Date Type Department Care Team (Latest Contact Info) Description 07/23/2023 7:45 AM CDT Clinical Communication Virtual Review in [address] [phone] Pre-visit Intake Social History Tobacco Use Types Packs/Day Years Used Date Smoking Tobacco: Never Passive Smoke Exposure: Past Smokeless Tobacco: Never Tobacco Cessation:Counseling Given: Not Answered Passive Exposure Comments:Childhood exposure. Alcohol Use Standard Drinks/Week Comments Not Currently 0 (1 standard drink = 0.6 oz pur e alcohol) [facility] Utilities Answer Date Recorded In [...] often do you attend chur ch or congregational services? More than 4 times per year [...] heating? Not hard at all 08/26/2022 [facility] of Occupat ional Health - Occupational [...] your living situation today? I have a [facility] place to live 07/20/2023 Education Answer Date [...] on filedocumented in this encounter Care Teams Bread Slicer Machine Relationship Specialty Start Date End Date Elsewhere, Pcp PCP - General Internal Medicine 12/28/22 documented as of this encounter
--- OUTSIDE RECORDS SUMMARY | 2023-09-28 11:56 | XMS_ITS | Encounter Summary ---
Author Organization [facility] Address [address] [place] [address] Care Team Providers Care Restaurant Host Name Role Phone Elsewhere, Pcp Primary Care Provider Unavailabl e Reason for Referral * Outpatient (Routine) - Closed Specialty Diagnoses / Procedures Referred By Magno isaac Referred To Contact Hematology Oncology Jonathan Richardson M.D. [address] [place] [phone] [facility] Referral ID Status Reason Start Date Expiration Date Visits Re quested Visits Authorized [id number] Closed 03/07/2023 03/06/2026 1 1 R TRAINER Reason for Visit * Outpatient (Routine) - Closed Specialty Diagnoses / Procedures Referred By Contnoemi t Referred To Contact Hematology Diagnoses Gammopathy Monoclonal Nonspecific Buddy Ceja M.D. [address] [place] [phone] [facility] Referral ID Status Reason Start Date Expiration Date Visits Re quested Visits Authorized [id number] Closed 01/29/2023 01/29/2024 1 1 Encounter Details Date Type Department Care Team (Late st Contact Info) Description 03/07/2023 10:30 AM LABOR TRAINER Telemedicine Division of Hematology in [place], [place] [address] [place] [phone] Jonathan Richardson M.D. [address] [place] [phone] Gammopathy Monoclonal Nonspecific (Primary Dx) Social History [...] any clubs o r organizations such as adventism groups, unions, fraternal or athletic groups, or [...] and heating? Not hard at all 08/26/2022 [facility] of Occupat ional Health - Occupational Stress [...] your living situation today? I have a [facility] place to live 08/26/2022 Education Answer [...] audio/video technology by Jonathan Richardson M.D. in [facility] to the patient in Patient's [...] Otherwise would repeat monoclonal protein testing yearly. R TRAINER documented in this encounter Miscellaneous Notes * Addendum Note - Ashtyn Patricio - 03/07/2023 10:30 AM CSTAddended by: ASHTYN PATRICIO on: 07/09/2023 03:34 PM Modules accepted: Orders documented in this encounter Plan of Treatment Scheduled Referrals Name Type Priority Associated Diagnoses Order Schedule Hematology office visit (clinic) [facility]; [facility]; General Outpatient Referral Routine Expected: 09/06/2023 (Approximate), Expires: 06/05/2024 documented as of this encounter Results * NT-Pro B-Type Natriuretic Peptide (BNP) (09/27/2023 8:54 AM CDT) NT-Pro BNP 367 <=540 pg/mL 09/27/2023 10:08 [...] M.D. LAB BLOOD ADD-ON Performing Organization Address [facility] Co de Phone Number [facility] [address] [place] [address], [facility] [address] [place] [address] * Viscosity (09/27/2023 8:54 AM CDT) Pathologist [facility] Viscosity, S 1.1 <=1.5 cpoise 09/28/2023 10:25 AM CDT [facility] Comment: ----ADDITIONAL INFORMATION---- This test has been modified from the clinical applications specialist's instructions. Its performance characteristics were determined by [facility] in a manner consistent with CLIA requirements. This test has not been cleared or approved by the U.S. Food and Drug Administration. Blood (Blood, Venous) 09/27/2023 8:54 AM CDT 09/28/2023 6:57 AM CDT Jonathan Richardson M.D. LAB BLOOD NON ADD-ON Performing Organization Address [facility] Co de Phone Number [facility] [address] [place] [address] [facility] [address] [place] [address] * LD (Lactate Dehydrogenase) (09/27/2023 8:54 AM CDT) Lactate Dehydrogenase (LD), S 135 122 - 222 U/L 09/27/2023 10:08 AM CDT [facility] Blood (Blood, Venous) 09/27/2023 8:54 AM CDT 09/27/2023 9:35 AM CDT Jonathan Richardson M.D. LAB BLOOD NON ADD-ON [facility] [address] [place] [address], [facility] DTL [facility] [address] [place] [address] * (ABNORMAL) Comprehensive Metabolic Panel (09/27/2023 8:54 AM CDT) [facility] Potassium, S 4.2 3.6 - 5.2 [...] CDT Jonathan Richardson M.D. LAB BLOOD ADD-ON [facility] [address] [place] [address], [facility] DTFormerly named [facility] [address] [place] [address] * CBC with Differential, Blood (09/27/2023 8:54 [...] CDT Jonathan Richardson M.D. LAB BLOOD ADD-ON [facility] [address] [place] [address], [facility] DTL [facility] [address] [place] [address] [facility] [address] [place] [address] documented in this encounter Visit Diagnoses Diagnosis Gammopathy Monoclonal Nonspecific- Primary documented in this encounter Care Teams Restaurant Host Relationship Specialty Start Date End Date Elsewhere, Pcp PCP - General Internal Medicine 12/28/22 documented as of this encounter
--- OUTSIDE RECORDS SUMMARY | 2023-09-28 11:56 | XMS_ITS | Clinical Summary ---
Author Organization [facility] Address [place], [place] [address] Care Team Providers Care Fisher Trot Line Name Role Phone Mayela Smith MD Primary Care Provider [phone] July, Savannah Hernandez RN, BSN Unavailable [phone] Allergies No known active allergies Medications Medication [...] Disease Mother age 77. H ad prior [place]. Hyperlipidemia Mother Hypertension Mother Other Mother uterine cancer Cancer-colon Paternal Grandfather Good Health Sister 1 Good Health Sister 2 Good Health Sister 3 Good Health Sister 4 Cancer-breast No Family History Relation Name Status Comments Daughter 1 Daughter 2 Father (Age 67) aneurysm, cerebral Mother (Age 77) [place] Paternal Grandfather Sister 1 Sister 2 Sister [...] Comments Blood Pressure 127/63 03/06/2014 1:17 PM DIRECTOR OF RADIO SERVICES Pulse 54 03/06/2014 1:17 PM DIRECTOR OF RADIO SERVICES Temperature 36.7 ??C (98.1 ??F) 03/06/2014 1:17 PM CS T Respiratory Rate 20 03/02/2014 9:39 AM DIRECTOR OF RADIO SERVICES Oxygen Saturation 96% 03/06/2014 1:17 PM DIRECTOR OF RADIO SERVICES Inhaled Oxygen Concentration - - Weight 58.9 kg (129 lb 12.8 oz) 03/02/2014 9:39 AM DIRECTOR OF RADIO SERVICES Height 158.8 cm (5' 2.52) 03/02/2014 9:39 AM CS T Body Mass Index 23.35 03/02/2014 9:39 AM DIRECTOR OF RADIO SERVICES Plan of Treatment Health Maintenance Due Date [...] ANTI HCV Early AM 02/09/2014 4:30 AM DIRECTOR OF RADIO SERVICES XR MAMMO BILAT SCREEN FFDM (IA) Routine 08/16/2011 9:16 AM CDT Other screening mammogram LIPID PANEL Routine 06/15/2008 7:26 AM CDT Screening for Lipoid Disorders XR DXA BONE DENSITY 2 SITES AXIAL Routine 06/04/2007 8:47 AM DIRECTOR OF RADIO SERVICES Screening Osteoporosis from Last 3 Months or Most Recently Relevant to Health Maintenance Results * ANTI HCV (02/09/2014 4:30 AM DIRECTOR OF RADIO SERVICES) HEPATITIS C ANTIBODY Non-Reacti ve Non-Reacti ve 02/09/2014 5:40 AM DIRECTOR OF RADIO SERVICES [facility] Blood specimen (specimen) BLOOD SPECIMEN / Unknown Venipuncture / Unknown 02/09/2014 4:30 AM DIRECTOR OF RADIO SERVICES 02/09/2014 4:53 AM DIRECTOR OF RADIO SERVICES Narrative [facility] - 02/09/2014 5:40 AM DIRECTOR OF RADIO SERVICES Antibodies to HCV not detected; does not exclude the possibility of exposure to HCV. Dilshad Jacome MD SEND OUTS [facility] [address] [place] [id number], * XR MAMMO BILAT SCREEN FFDM (08/16/2011 [...] Computer-Aided Detection. ?? COMPARISON FILMS: Yes 07/04/10 [facility] 06/28/09 [facility] FINDINGS: ??Mammographically, the breast tissue is heterogeneously [...] of Computer-Aided Detection. COMPARISON FILMS: Yes 07/04/10 [facility] 06/28/09 [facility] FINDINGS: Mammographically, the breast tissue is heterogeneously [...] CDT) CHOLESTEROL,TOTAL 150 110 - 199 mg/dL [facility] TRIGLYCERIDES 78 <150 mg/dL [facility] HDL CHOLESTEROL 49 >40 mg/dL [facility] CHOL/HDL RATIO 3.06 <4.51 [facility] LDL CHOLESTEROL 85 <131 mg/dL [facility] PATIENT STATUS Fasting [facility] Blood specimen (specimen) BLOOD SPECIMEN / Unknown 06/15/2008 7:26 AM CDT 06/15/2008 7:20 AM CDT Priya Menjivar CHEMISTRY [facility] [address] [place] [address] * XR DEXA BONE DENSITY 2 SITES (06/04/2007 8:47 AM DIRECTOR OF RADIO SERVICES) Anatomical Region Laterality Modality Spine, HIPS, HIPL, HIPR Other 06/04/2007 8:47 AM DIRECTOR OF RADIO SERVICES Narrative 06/07/2007 1:15 PM DIRECTOR OF RADIO SERVICES Please see scanned document for results of this study. Procedure Note Priya Menjivar D - 06/07/2007 Please see scanned document for results of this study. Priya Menjivar DEXA from Last 3 Months or Most Recently Relevant to Health Maintenance Advance Directives * Full Code (Latest Code Status on File) Date Activated Date Inactivated Comments 02/07/2014 2:44 PM 02/20/2014 6:50 PM Care Teams Fisher Trot Line Relationship Specialty Start Date End Date Mayela Smith MD PCP - General Internal Medicine 02/12/14JulySavannah RN, BSN [address] [address] Refrigeration Service Inspector Oncology 03/03/14
--- NOTE | 2023-09-28 12:24 | W.ANESCHARGE ---
Anesthesia Charges Start Date/Time Anesthesia Start Date: 09/28/23 Anesthesia Start Time: 12:40 Stop Date/Time Anesthesia Stop Date: 09/28/23 Anesthesia Stop Time: 13:13
--- NOTE | 2023-09-28 13:12 | W.ANESCHARGE ---
Anesthesia Charges Start Date/Time Anesthesia Start Date: 09/28/23 Anesthesia Start Time: 12:40 Stop Date/Time Anesthesia Stop Date: 09/28/23 Anesthesia Stop Time: 13:13
== END 2023-09-28 11:53 | disposition home or self-care (01) ==
PROVIDERS: PCP Internal Medicine; Visit Provider Internal Medicine
DX: R19.5 Other fecal abnormalities (principal); K64.8 Other hemorrhoids
CPT/HCPCS: 00811; 45378; J2704

== ENCOUNTER 2023-10-12 14:44 | Outpatient (CLI) | payer MEDICARE, SELFPAY ==
--- OUTSIDE RECORDS SUMMARY | 2023-10-12 14:48 | XMS_ITS | Encounter Summary ---
Author Organization [facility] Address [address] [place] [address] Care Team Providers Care Radar Technician Name Role Phone Elsewhere, Pcp Primary Care Provider Unavailabl e Encounter Details Date Type Department Care Team (Latest Contact Info) Description 09/25/2023 2:00 PM CDT Clinical Communication Virtual Review in [place], [place] [address] [place] [address] Social History Tobacco Use Types Packs/Day Years Used Date Smoking Tobacco: Never Passive Smoke Exposure: Past Smokeless Tobacco: Never Passive Exposure Comments:Ch ildhood exposure. Alcohol Use Standard Drinks/Week Comments Not Currently 0 (1 standard drink = 0.6 oz pur e alcohol) [facility] Utilities Answer Date Recorded In the past 12 months has e electric, gas, oil, or water [employer] threatened to shut off services in your [...] often do you attend chur ch or jewish services? More than 4 times per year 04/04/2022 Do you belong to any clubs o r organizations such as episcopalian groups, unions, fraternal or athletic groups, or [...] and heating? Not hard at all 08/26/2022 [facility] of Occupat ional Health - Occupational Stress [...] your living situation today? I have a [facility] place to live 07/20/2023 Education Answer [...] on filedocumented in this encounter Care Teams Radar Technician Relationship Specialty Start Date End Date Elsewhere, Pcp PCP - General Internal Medicine 12/28/22 documented as of this encounter
--- OUTSIDE RECORDS SUMMARY | 2023-10-12 14:48 | XMS_ITS | Encounter Summary ---
Author Organization [facility] Address [address] [place] [address] Care Team Providers Care Certified Coding Specialist Name Role Phone Elsewhere, Pcp Primary Care Provider Unavailabl e Reason for Visit * Reason Comments Med Refill Encounter Details Date Type Department Care Team (Latest Contact Info) Description 08/08/2023 Refill RST Riri Alvares M.D., Ph.D. [address] [place] [address] Med Refill Social History Tobacco Use Types Packs/Day Years Used Date Smoking Tobacco: Never Passive Smoke Exposure: Past Smokeless Tobacco: Never Passive Exposure Comments:Ch ildhood exposure. Alcohol Use Standard Drinks/Week Comments Not Currently 0 (1 standard drink = 0.6 oz pur e alcohol) [facility] Utilities Answer Date Recorded In the past 12 months has [facility] [employer], gas, oil, or water [employer] threatened to shut off services in your [...] How often do you attend chur or zoroastrianism services? More than 4 times per year 04/04/2022 Do you belong to any clubs o r organizations such as congregational groups, unions, fraternal or athletic groups, or [...] and heating? Not hard at all 08/26/2022 [facility] of Occupat ional Health - Occupational [...] your living situation today? I have a [facility] place to live 07/20/2023 Education Answer [...] on filedocumented in this encounter Care Teams Certified Coding Specialist Relationship Specialty Start Date End Date Elsewhere, Pcp PCP - General Internal Medicine 12/28/22 documented as of this encounter
--- OUTSIDE RECORDS SUMMARY | 2023-10-12 14:48 | XMS_ITS | Encounter Summary ---
Author Organization [facility] Address [address] [place] [address] Care Team Providers Care Stock Digger Name Role Phone Elsewhere, Pcp Primary Care Provider Unavailabl e Reason for Referral * Outpatient (Routine) - Authorized Specialty Diagnoses / Procedures Referred By Magno isaac Referred To Contact Hematology Oncology Jonathan Richardson M.D. [address] [place] [phone] [facility] Referral ID Status Reason Start Date Expiration Date V isits Requested Visits Authorized [id number] Authorized 09/27/2023 03/28/2025 1 1 Reason for Visit * Outpatient (Routine) - Closed Specialty Diagnoses / Procedures Referred By Magno isaac Referred To Contact Hematology Oncology Jonathan Richardson M.D. [address] [place] [phone] [facility] Referral ID Status Reason Start Date Expiration Date Visits Re quested Visits Authorized [id number] Closed 03/07/2023 03/06/2026 1 1 Encounter Details Date Type Department Care Team (Late st Contact Info) Description 09/27/2023 3:00 PM CDT Office Visit Division of Hematology in [place], [place] [address] [place] [phone] Jonathan Richardson M.D. [address] [place] [phone] Gammopathy Monoclonal Nonspecific (Primary Dx) Social History Tobacco Use Types Packs/Day Years Used Date Smoking Tobacco: Never Passive Smoke Exposure: Past Smokeless Tobacco: Never Passive Exposure Comments: ildhood exposure. Alcohol Use Standard Drinks/Week Comments Not Currently 0 (1 standard drink = 0.6 oz pur e alcohol) [facility] Utilities Answer Date Recorded In the [...] week 04/04/2022 How often do you attend [facility] or hindu services? More than 4 times per year 04/04/2022 Do you belong to any clubs o r organizations such as sabianist groups, unions, fraternal or athletic groups, or [...] and heating? Not hard at all 08/26/[address] [facility] of Occupat ional Health - Occupational Stress [...] audio/video technology by Jonathan Richardson M.D. in [facility] to the patient in Patient's Home CHIEF [...] Monoclonal Nonspecific Monoclonal protein labs are stable. Braggs to lambda free light chain ratio is [...] Diagnoses Order Schedule Hematology office visit (clinic) [facility]; [facility]; General Outpatient Referral Routine Expected: 09/26/2024 (Approximate), Expires: 12/27/2024 documented as of this encounter Visit Diagnoses Diagnosis Gammopathy Monoclonal Nonspecific- Primary documented in this encounter Care Teams Stock Digger Relationship Specialty Start Date End Date Elsewhere, Pcp PCP - General Internal Medicine 12/28/22 documented as of this encounter
--- OUTSIDE RECORDS SUMMARY | 2023-10-12 14:48 | XMS_ITS ---
Author Organization [facility] Address [address] [place] [address] Care Team Providers Care Data Capture Clerk Name Role Phone Unavailable Unavailable Unavailable Surgery Details Not on file Complications Check Surgery Details section. Procedure Estimated Blood Loss Check Surgery Details section. Procedure Findings Check Surgery Details section. Procedure Specimens Taken Check Surgery Details section.
--- OUTSIDE RECORDS SUMMARY | 2023-10-12 14:48 | XMS_ITS | Encounter Summary ---
Author Organization [facility] Address [address] [place] [address] Care Team Providers Care Retort Furnace Operator Name Role Phone Elsewhere, Pcp Primary Care Provider Unavailabl e Encounter Details Date Type Department Care Team (Latest Contact Info) Description 09/27/2023 8:30 AM CDT - 09/27/2023 11:59 PM CDT Hospital Encounter Department of Laboratory Medicine and Pathology, [facility] in [place], [place] [address] [place] [address] Jonathan Richardson M.D. [address] [place] [phone] Gammopathy Monoclonal Nonspecific Discharge Disposition: Home or Self Care Social History Tobacco Use Types Packs/Day Years Used Date Smoking Tobacco: Never Passive Smoke Exposure: Past Smokeless Tobacco: Never Passive Exposure Comments:Ch ildhood exposure. Alcohol Use Standard Drinks/Week Comments Not Currently 0 (1 standard drink = 0.6 oz pur e alcohol) [facility] Utilities Answer Date Recorded In the past 12 months has [employer], gas, oil, or water [employer] threatened to shut off services in your [...] often do you attend chur ch or protestant services? More than 4 times per year 04/04/2022 Do you belong to any clubs o r organizations such as cheondoism groups, unions, fraternal or athletic groups, or [...] and heating? Not hard at all 08/26/2022 [facility] - [...] your living situation today? I have a [facility] place to live 07/20/2023 Education Answer [...] Free Light Chains (09/27/2023 8:54 AM CDT) Ste[place]oe Free Light Chain, S 7.43(H) 0.3300 - 1.94 mg/dL 09/27/2023 1:44 PM CDT SDSC Lambda Free Light Chain, S 1.13 0.5700 - 2.63 mg/dL 09/27/2023 1:44 PM CDT SDSC Steptoe/Lambda FLC Ratio 6.58(H) 0.2600 - 1.65 09/27/2023 1:44 PM CDT SDSC Blood 09/27/2023 8:54 AM CDT 09/27/2023 1:02 PM CDT Jonathan Richardson M.D. LAB BLOOD ADD-ON [facility] [address] [place] [address] [facility] [address] [place] [address] * (ABNORMAL) Quantitative M-protein Study (09/27/2023 8:54 [...] developed and its performance characteristics determined by [facility] in a manner consistent with CLIA requirements. This test has not been cleared or approved by the U.S. Food and Drug Administration. Blood 09/27/2023 8:54 AM CDT 09/27/2023 12:53 PM CDT Narrative [facility] - 09/28/2023 9:26 AM CDT Specimen Information: Specimen ID: [id number] Specimen Type: Blood Specimen Collection Start Date: 09/27/2023 ??8:54 AM Specimen Received Date: 09/27/2023 12:53 PM Specimen ID: [id number] Specimen Type: Blood Specimen Collection Start Date: 09/27/2023 ??8:54 AM Specimen Received Date: 09/27/2023 ??1:02 PM Jonathan Richardson M.D. LAB BLOOD ADD-ON Performing Organization Address City/[facility]/ZIP Co de Phone Number [facility] [address] [place], [place] [id number] [place] [address] [address] [place], [place] [id number] [place] [address] DR. [place] [facility] [place] [address] * NT-Pro B-Type Natriuretic Peptide (BNP) (09/27/2023 8:54 AM CDT) [facility] NT-Pro BNP 367 <=540 pg/mL [...] CDT Jonathan Richardson M.D. LAB BLOOD ADD-ON [facility] [address] [facility] [address] [place] [address] * Viscosity (09/27/2023 8:54 AM CDT) Pathologist [facility] Viscosity, S 1.1 <=1.5 cpoise 09/28/2023 10:25 AM CDT [facility] Comment: ----ADDITIONAL INFORMATION---- This test has been modified from the land checker's instructions. Its performance characteristics were determined by [facility] in a manner consistent with CLIA requirements. This test has not been cleared or approved by the U.S. Food and Drug Administration. Blood (Blood, Venous) 09/27/2023 8:54 AM CDT 09/28/2023 6:57 AM CDT Jonathan Richardson M.D. LAB BLOOD NON ADD-ON [facility] [address] [place] [address] [facility] [address] [place] [address] * LD (Lactate Dehydrogenase) (09/27/2023 8:54 AM CDT) [facility] Lactate Dehydrogenase (LD), S 135 122 - 222 U/L 09/27/2023 10:08 AM CDT DT Blood (Blood, Venous) 09/27/2023 8:54 AM CDT 09/27/2023 9:35 AM CDT Jonathan Richardson M.D. LAB BLOOD NON ADD-ON [facility] [address] [place] [address], [facility] [address] [place] [address] * (ABNORMAL) Comprehensive Metabolic Panel (09/27/2023 8:54 AM CDT) [facility] Potassium, S 4.2 3.6 - [...] CDT Jonathan Richardson M.D. LAB BLOOD ADD-ON [facility] 200 [place] [address], [facility] DTL [facility] 200 [place] [address] * CBC with Differential, Blood (09/27/2023 8:54 [...] CDT Jonathan Richardson M.D. LAB BLOOD ADD-ON [facility] [address] [place] [address], [place] DTL [facility] [address] [place] [address] [facility] [address] [place] [address] documented in this encounter Visit Diagnoses Diagnosis Gammopathy Monoclonal Nonspecific documented in this encounter Care Teams Retort Furnace Operator Relationship Specialty Start Date End Date Elsewhere, Pcp PCP - General Internal Medicine 12/28/22 documented as of this encounter
--- OUTSIDE RECORDS SUMMARY | 2023-10-12 14:48 | XMS_ITS | Referral Summary ---
Author Organization [facility] Address [address] [place] [address] Care Team Providers Care Financial Analysis Consultant Name Role Phone Elsewhere, Pcp Primary Care Provider Unavailabl e Source Comments Patient records contain information from all sites at [facility]. For routine questions regarding patient records, call [phone] during business hours, M-F 8:00 AM - 5:00 PM Central Time. Record requests for emergency care only can be directed to [phone] at any time.[facility] Encounters Date Type Department Care Team Description 09/27/2023 8:30 AM CDT - 09/27/2023 11:59 PM CDT Hospital Encounter Department of Laboratory Medicine and Pathology, [facility] in [address] [phone] Jonathan Richardson M.D. Gammopathy Monoclonal Nonspecific Discharge Disposition: Home or Self Care 09/27/2023 3:00 PM CDT Office Visit Division of Hematology in [place], [place] [address] [place] [phone] Jonathan Richardson M.D. Gammopathy Monoclonal Nonspecific (Primary Dx) 09/25/2023 Clinical Communication Division of Hematology in [place], [place] [address] [place] [phone] Jonathan Richardson M.D. 09/25/2023 2:00 PM CDT Clinical Communication Virtual Review in [place], [place] 200 [place] [address] 09/20/2023 Refill Division of Gastroenterology in [place], [place] [address] [place] [phone] Buddy Ceja M.D. Med Refill 08/08/2023 Refill RST PRABHU Riri Harding M.D., Ph.D. Med Refill 08/06/2023 7:09 AM CDT - 08/06/2023 11:59 PM CDT Hospital Encounter Department of Laboratory Medicine and Pathology, [facility], in [place], [place] [address] [place] [phone] Jonathan Richardson M.D. Gammopathy Monoclonal Nonspecific Discharge Disposition: Home or Self Care 07/24/2023 2:30 PM CDT Comprehensive Visit Department of Neurology in [place], [place] [address] [place] [phone] Riri Harding M.D., Ph.D. Parkinsonism Unspecified (HCC) (Primary Dx) 07/23/2023 7:45 AM CDT Clinical Communication Virtual Review in [place], [place] 200 [place] [address] Pre-visit Intake from Last 3 Months Allergies [...] drink = 0.6 oz pur e alcohol) [facility] Utilities Answer Date Recorded In the past 12 months has e [employer] gas, oil, or water [employer] threatened to shut off services in your [...] often do you attend chur ch or pentecostal services? More than 4 times per year 04/04/2022 Do you belong to any clubs o r organizations such as protestant groups, unions, fraternal or athletic groups, or [...] and heating? Not hard at all 08/26/2022 [facility] - Occupational [...] living situation today? I have a [facility] place to live 07/20/2023 Education Answer [...] on file Medical Devices Explanted Type Area Vacuum Applicator Operator Device Identifier Shelf Expiration Date Model / Serial / Lot Clp Apr Lgs Intnl Sm 9.0 - [id number] Explanted:Qty : 1 on 12/28/[address] [facility] Hardware e.g. pins/screws/ rods [employer] [id number] 09/30/2027 MCS20 / / [id number] Clp Apr Lgc Intnl Shrt 9.75 - [id number] Explanted:Qty : 1 on 12/28/[address] [facility] Hardware e.g. pins/screws/ rods [employer] MSM20 [...] its performance characteristics determined by [facility] in a manner consistent with CLIA requirements. This test has not been cleared or approved by the U.S. Food and Drug Administration. Blood 09/27/2023 8:54 AM CDT 09/27/2023 12:53 PM CDT Narrative [facility] - 09/28/2023 9:26 AM CDT Specimen Information: Specimen ID: [id number] Specimen Type: Blood Specimen Collection Start Date: 09/27/2023 ??8:54 AM Specimen Received Date: 09/27/2023 12:53 PM Specimen ID: [id number] Specimen Type: Blood Specimen Collection Start Date: 09/27/2023 ??8:54 AM Specimen Received Date: 09/27/2023 ??1:02 PM Jonathan Richardson M.D. LAB BLOOD ADD-ON [facility] [address] [place] [address] [facility] [address] [place] [address] [facility] [address] [place] [address] [place] [address] * NT-Pro B-Type Natriuretic Peptide (BNP) (09/27/2023 8:54 AM CDT) [facility] NT-Pro BNP 367 <=540 pg/mL 09/27/2023 10:08 AM CDT [facility] Comment: NT-proBNP values less than 300 pg/mL [...] CDT Jonathan Richardson M.D. LAB BLOOD ADD-ON [facility] [address] [place] [address], [facility] 200 [place] [address] * Viscosity (09/27/2023 8:54 AM CDT) [facility] Viscosity, S 1.1 <=1.5 cpoise 09/28/2023 10:25 AM CDT [facility] Comment: ----ADDITIONAL INFORMATION---- This test has been modified from the marine gear keeper's instructions. Its performance characteristics were determined by [facility] in a manner consistent with CLIA requirements. This test has not been cleared or approved by the U.S. Food and Drug Administration. Blood (Blood, Venous) 09/27/2023 8:54 AM CDT 09/28/2023 6:57 AM CDT Jonathan Richardson M.D. LAB BLOOD NON ADD-ON [facility] [address] [place] [address] [facility] [address] [place] [address] * (ABNORMAL) Immunoglobulin Free Light Chains (09/27/2023 8:54 AM CDT) [facility] Deer Free Light Chain, S 7.43(H) 0.3300 - 1.94 mg/dL 09/27/2023 1:44 PM CDT [facility] Lambda Free Light Chain, S 1.13 0.5700 - 2.63 mg/dL 09/27/2023 1:44 PM CDT [facility] Deer/Lambda FLC Ratio 6.58(H) 0.2600 - 1.65 09/27/2023 1:44 PM CDT [facility] Blood 09/27/2023 8:54 AM CDT 09/27/2023 1:02 PM CDT Jonathan Richardson M.D. LAB BLOOD ADD-ON [facility] [address] [place] [address] [place] [address] [place] [address] * CBC with Differential, Blood (09/27/2023 8:54 AM CDT) [facility] Hemoglobin 13.4 11.6 - 15.0 g/dL [...] M.D. LAB BLOOD ADD-ON Performing Organization Address City/[facility]/ZIP Co de Phone Number [facility] [address] [facility]TAur[facility] 200 [place], [place] [phone] [place] [address] 200 [place] [address] * LD (Lactate Dehydrogenase) (09/27/2023 8:54 AM CDT) Lactate Dehydrogenase (LD), S 135 122 - 222 U/L 09/27/2023 10:08 AM CDT DTL Blood (Blood, Venous) 09/27/2023 8:54 AM CDT 09/27/2023 9:35 AM CDT Jonathan Richardson M.D. LAB BLOOD NON ADD-ON [facility] 200 [place] [address], [facility] 200 [place] [address] * (ABNORMAL) Comprehensive Metabolic Panel (09/27/2023 8:54 AM CDT) [facility] Potassium, S 4.2 3.6 - 5.2 [...] CDT Jonathan Richardson M.D. LAB BLOOD ADD-ON [facility] [address] [place] [address], [facility] DTL [facility][note 3] [address] [place] [address] * (ABNORMAL) Electrophoresis, Protein, 24 hour, Urine (09/26/2023 7:37 AM CDT) Pathologist [facility] Total Protein, 24 HR, U 270(H) <229 mg/24 h 09/27/2023 10:03 AM CDT DTL Collection Duration 24 h 09/27/2023 9:04 AM CDT DTL Urine Volume 1800 mL 09/27/2023 9:04 AM CDT DTL Albumin, mg/24 h 105.3 mg/24 h 10/01/2023 10:21 AM CDT SD[facility] Alpha-1 globulin, mg/24 h 8.1 mg/24 h 10/01/2023 10:21 AM CDT [facility] Alpha-2 globulin, mg/24 h 29.7 mg/24 h 10/01/2023 10:21 AM CDT [facility] Beta globulin, mg/24 h 27.0 mg/24 h 10/01/2023 10:21 AM CDT [facility] Gamma globulin, mg/24 h 99.9 mg/24 h 10/01/2023 10:21 AM CDT [facility] A/G Ratio 0.64 10/01/2023 10:21 AM CDT SD[facility] Impression Small abnormality in gamma fraction. 10/01/2023 10:21 AM CDT [facility] Urine (Urine, 24 Hours) 09/26/2023 7:37 AM CDT 09/27/2023 11:59 AM CDT Jonathan Richardson M.D. LAB URINE ORDERABLES [facility] SUPPORT [place] [address] [place] [address] [facility] [address] [place] [address] [place] [address] [place] [address] * Thyroid Function [place] (08/19/2014 9:05 AM CDT) TSH, Sensitive 0.5 0.3 - 4.2 MIU/L [facility] 08/19/2014 9:05 AM CDT 08/19/2014 9:05 AM CDT Jori Harley LAB BLOOD ADD-ON [facility] [address] [place] [address], [facility] from Last 3 Months or Most Recently Relevant to Health Maintenance Care Teams Financial Analysis Consultant Relationship Specialty Start Date End Date Elsewhere, Pcp PCP - General Internal Medicine 12/28/22
--- OUTSIDE RECORDS SUMMARY | 2023-10-12 14:48 | XMS_ITS | Clinical Summary ---
Author Organization [facility] Address [address] [place] [address] Care Team Providers Care Motion Picture Set Worker Name Role Phone Elsewhere, Pcp Primary Care Provider Unavailabl e Source Comments Patient records contain information from all sites at [facility]. For routine questions regarding patient records, call [phone] during business hours, M-F 8:00 AM - 5:00 PM Central Time. Record requests for emergency care only can be directed to [phone] at any time.[facility] Allergies No known active allergies [...] CDT Office Visit Division of Hematology in [address] [phone] Jonathan Richardson M.D. Gammopathy Monoclonal Nonspecific (Primary Dx) 09/27/2023 8:30 AM CDT - 09/27/2023 11:59 PM CDT Hospital Encounter Department of Laboratory Medicine and Pathology, [facility], in [place], [place] [address] [place] [phone] Jonathan Richardson M.D. Gammopathy Monoclonal Nonspecific Discharge Disposition: Home or Self Care 09/25/2023 2:00 PM CDT Clinical Communication Virtual Review in [place], [place] 200 [place] [address] 09/25/2023 Clinical Communication Division of Hematology in [place], [place] [address] [place] [phone] Jonathan Richardson M.D. 09/20/2023 Refill Division of Gastroenterology in [place], [place] [address] [place] [phone] Buddy Ceja M.D. Med Refill 08/08/2023 Refill RST PRABHU Riri Harding M.D., Ph.D. Med Refill 08/06/2023 7:09 AM CDT - 08/06/2023 11:59 PM CDT Hospital Encounter Department of Laboratory Medicine and Pathology, [facility] in [place], [place] [address] [place] [address] Jonathan Richardson M.D. Gammopathy Monoclonal Nonspecific Discharge Disposition: Home or Self Care 07/24/2023 2:30 PM CDT Comprehensive Visit Department of Neurology in [place], [place] [address] [place] [phone] iRri Harding M.D., Ph.D. Parkinsonism Unspecified (HCC) (Primary Dx) 07/23/2023 7:45 AM CDT Clinical Communication Virtual Review in [place], [place] 200 [place] [address] Pre-visit Intake from Last 3 Months Family [...] drink = 0.6 oz pur e alcohol) [facility] Utilities Answer Date Recorded In the past 12 months has e [employer], gas, oil, or water [employer] threatened to shut off services in your [...] often do you attend chur ch or rastafari services? More than 4 times per year 04/04/2022 Do you belong to any clubs o r organizations such as rastafari groups, unions, fraternal or athletic groups, or [...] your living situation today? I have a [facility] place to live 07/20/2023 Education Answer [...] 2023 04/13/2023, 01/25/2022, 03/09/2021, Additional history exists Influenza Vaccine (#1) 2024 , 01/24/2022, 03/09/2021, Additional history exists Colonoscopy 07/01/2024 07/01/2014 [...] Pneumococcal vaccine (65+ years) Completed 10/20/19, 09/12/2021 Medical Devices Explanted Type Area Optometrist President/Practice Owner Device Identifier Shelf Expiration Date Model / Serial / Lot Clp Apr Lgs [facility] 9.0 - [id number] Explanted:Qty : 1 on 12/28/2022 at [facility] Hardware e.g. pins/screws/ rods [employer] [id number] 09/30/2027 MCS20 / / [id number] Clp Apr Lgc Intnl Md [place] 9.75 - [id number] Explanted:Qty : 1 on 12/28/2022 at [facility] Hardware e.g. pins/screws/ rods [employer] MSM20 / [...] - 356 mg/dL 09/27/2023 2:17 PM CDT SDS Immunoglobulin M (IgM), S 1210(H) 37 - [...] developed and its performance characteristics determined by [facility] in a manner consistent with CLIA requirements. This test has not been cleared or approved by the U.S. Food and Drug Administration. Blood 09/27/2023 8:54 AM CDT 09/27/2023 12:53 PM CDT Narrative [facility] - 09/28/2023 9:26 AM CDT Specimen Information: Specimen ID: [id number] Specimen Type: Blood Specimen Collection Start Date: 09/27/2023 ??8:54 AM Specimen Received Date: 09/27/2023 12:53 PM Specimen ID: [id number] Specimen Type: Blood Specimen Collection Start Date: 09/27/2023 ??8:54 AM Specimen Received Date: 09/27/2023 ??1:02 PM Jonathan Richardson M.D. LAB BLOOD ADD-ON [facility] [address] [place] [address] [facility] [address] [place] [address] [facility] [address] [place] [address] [place] [address] * NT-Pro B-Type Natriuretic Peptide (BNP) (09/27/2023 8:54 AM CDT) Pathologist [facility] NT-Pro BNP 367 <=540 pg/mL 09/27/2023 10:08 AM CDT [facility] Comment: NT-proBNP values less than 300 pg/mL [...] M.D. LAB BLOOD ADD-ON Performing Organization Address [facility] Co de Phone Number [facility] 200 [place] [address], [facility] 200 [place] [address] * Viscosity (09/27/2023 8:54 AM CDT) Pathologist [facility] Viscosity, S 1.1 <=1.5 cpoise 09/28/2023 10:25 AM CDT [facility] Comment: ----ADDITIONAL INFORMATION---- This test has been modified from the timber feller's instructions. Its performance characteristics were determined by [facility] in a manner consistent with CLIA requirements. This test has not been cleared or approved by the U.S. Food and Drug Administration. Blood (Blood, Venous) 09/27/2023 8:54 AM CDT 09/28/2023 6:57 AM CDT Jonathan Richardson M.D. LAB BLOOD NON ADD-ON Performing Organization Address City/[facility]/ZIP Co de Phone Number [facility] [address] [place] [address] [facility] [address] [place] [address] * (ABNORMAL) Immunoglobulin Free Light Chains (09/27/2023 8:54 AM CDT) Wing Free Light Chain, S 7.43(H) 0.3300 - 1.94 mg/dL 09/27/2023 1:44 PM CDT [facility] Lambda Free Light Chain, S 1.13 0.5700 - 2.63 mg/dL 09/27/2023 1:44 PM CDT [facility] Wing/Lambda FLC Ratio 6.58(H) 0.2600 - 1.65 09/27/2023 1:44 PM CDT [facility] Blood 09/27/2023 8:54 AM CDT 09/27/2023 1:02 PM CDT Jonathan Richardson M.D. LAB BLOOD ADD-ON [facility] [address] [place] [address] [facility] [address] [place] [address] * CBC with Differential, Blood (09/27/2023 8:54 [...] M.D. LAB BLOOD ADD-ON Performing Organization Address City/[facility]/ZIP Co de Phone Number [facility] [address] [facility] [address] 200 [place] [address] * LD (Lactate Dehydrogenase) (09/27/2023 8:54 AM CDT) Pathologist [facility] Lactate Dehydrogenase (LD), S 135 122 - 222 U/L 09/27/2023 10:08 AM CDT DTL Blood (Blood, Venous) 09/27/2023 8:54 AM CDT 09/27/2023 9:35 AM CDT Jonathan Richardson M.D. LAB BLOOD NON ADD-ON [facility] 200 [place] [address] * (ABNORMAL) Comprehensive Metabolic Panel (09/27/2023 8:54 [...] CDT Jonathan Richardson M.D. LAB BLOOD ADD-ON [facility] [address] [place] [address], [facility] [address] [place] [address] * (ABNORMAL) Electrophoresis, Protein, 24 hour, Urine (09/26/2023 7:37 AM CDT) Total Protein, 24 HR, U 270(H) <229 [...] CDT Jonathan Richardson M.D. LAB URINE ORDERABLES [facility] [address] [place] [address] [facility] [address] [place] [address] [facility] [address] [place] [address] [place] [address] * Thyroid Function [place] (08/19/2014 9:05 AM CDT) TSH, Sensitive 0.5 0.3 - 4.2 MIU/L [facility] 08/19/2014 9:05 AM CDT 08/19/2014 9:05 AM CDT Jori Harlye LAB BLOOD ADD-ON [facility] [address] [place] [id number] from Last 3 Months or Most Recently Relevant to Health Maintenance Care Teams Motion Picture Set Worker Relationship Specialty Start Date End Date Elsewhere, Pcp PCP - General Internal Medicine 12/28/22
--- OUTSIDE RECORDS SUMMARY | 2023-10-12 14:48 | XMS_ITS | Encounter Summary ---
Author Organization [facility] Address [address] [place] [phone] Care Team Providers Care Metal Stud Framer Name Role Phone Elsewhere, Pcp Primary Care Provider Unavailabl e Reason for Visit * Reason Comments Med Refill Encounter Details Date Type Department Care Team ([facility] st Contact Info) Description 09/20/2023 Refill Division of Gastroenterology in [place], [place] [address] [place] [phone] Buddy Ceja M.D. [address] [place] [address] Med Refill Social History Tobacco Use Types Packs/Day Years Used Date Smoking Tobacco: Never Passive Smoke Exposure: Past Smokeless Tobacco: Never Passive Exposure Comments:Ch ildhood exposure. Alcohol Use Standard Drinks/Week Comments Not Currently 0 (1 standard drink = 0.6 oz pur e alcohol) [facility] Utilities Answer Date Recorded In the past 12 months has [facility] [employer] gas, oil, or water [id number] threatened to shut off services in your [...] often do you attend chur ch or jainism services? More than 4 times per year [...] and heating? Not hard at all 08/26/2022 [facility] of Occupat ional Health - Occupational [...] your living situation today? I have a [facility] place to live 07/20/2023 Education Answer Date [...] (HCC) documented in this encounter Care Teams Metal Stud Framer Relationship Specialty Start Date End Date Elsewhere, Pcp PCP - General Internal Medicine 12/28/22 documented as of this encounter
--- OUTSIDE RECORDS SUMMARY | 2023-10-12 14:48 | XMS_ITS | Encounter Summary ---
Author Organization [facility] Address [address] [place] [address] Care Team Providers Care Public Policy Manager Name Role Phone Elsewhere, Pcp Primary Care Provider Unavailabl e Encounter Details Date Type Department Care Team (Late st Contact Info) Description 09/25/2023 Clinical Communication Division of Hematology in [place], [place] [address] [place] [phone] Jonathan Richardson M.D. [address] [place] [address] Social History Tobacco Use Types Packs/Day Years Used Date Smoking Tobacco: Never Passive Smoke Exposure: Past Smokeless Tobacco: Never Passive Exposure Comments:Ch ildhood exposure. Alcohol Use Standard Drinks/Week Comments Not Currently 0 (1 standard drink = 0.6 oz pur e alcohol) [facility] Utilities Answer Date Recorded In the past 12 months has [facility] [employer], gas, oil, or water [employer] threatened to shut off services in your [...] How often do you attend chur or bahai services? More than 4 times per year 04/04/2022 Do you belong to any clubs o r organizations such as anglican groups, unions, fraternal or athletic groups, or [...] and heating? Not hard at all 08/26/2022 [facility] of Occupat ional Health - [...] living situation today? I have a [facility] place to live 07/20/2023 Education Answer Date [...] on filedocumented in this encounter Care Teams Public Policy Manager Relationship Specialty Start Date End Date Elsewhere, Pcp PCP - General Internal Medicine 12/28/22 documented as of this encounter
--- OUTSIDE RECORDS SUMMARY | 2023-10-12 14:49 | XMS_ITS | Clinical Summary ---
Author Organization [facility] Address [place], [place] [address] Care Team Providers Care Industrial Servicer Name Role Phone Mayela Smith MD Primary Care Provider [phone] July, Savannah Hernandez RN, BSN Unavailable [phone] Allergies No known active allergies Medications [...] Disease Mother age 77. H ad prior [place]. Hyperlipidemia Mother Hypertension Mother Other Mother uterine cancer Cancer-colon Paternal Grandfather Good Health Sister 1 Good Health Sister 2 Good Health Sister 3 Good Health Sister 4 Cancer-breast No Family History Relation Name Status Comments Daughter 1 Daughter 2 Father (Age 67) aneurysm, cerebral Mother (Age 77) [place] Paternal Grandfather Sister 1 Sister 2 Sister [...] Comments Blood Pressure 127/63 03/06/2014 1:17 PM MATERIAL CREW SUPERVISOR Pulse 54 03/06/2014 1:17 PM MATERIAL CREW SUPERVISOR Temperature 36.7 ??C (98.1 ??F) 03/06/2014 1:17 PM CS T Respiratory Rate 20 03/02/2014 9:39 AM MATERIAL CREW SUPERVISOR Oxygen Saturation 96% 03/06/2014 1:17 PM MATERIAL CREW SUPERVISOR Inhaled Oxygen Concentration - - Weight 58.9 kg (129 lb 12.8 oz) 03/02/2014 9:39 AM MATERIAL CREW SUPERVISOR Height 158.8 cm (5' 2.52) 03/02/2014 9:39 AM CS T Body Mass Index 23.35 03/02/2014 9:39 AM MATERIAL CREW SUPERVISOR Plan of Treatment Health Maintenance Due Date [...] ANTI HCV Early AM 02/09/2014 4:30 AM MATERIAL CREW SUPERVISOR XR MAMMO BILAT SCREEN FFDM (IA) Routine 08/16/2011 9:16 AM CDT Other screening mammogram LIPID PANEL Routine 06/15/2008 7:26 AM CDT Screening for Lipoid Disorders XR DXA BONE DENSITY 2 SITES AXIAL Routine 06/04/2007 8:47 AM MATERIAL CREW SUPERVISOR Screening Osteoporosis from Last 3 Months or Most Recently Relevant to Health Maintenance Results * ANTI HCV (02/09/2014 4:30 AM MATERIAL CREW SUPERVISOR) HEPATITIS C ANTIBODY Non-Reacti ve Non-Reacti ve 02/09/2014 5:40 AM MATERIAL CREW SUPERVISOR [facility] Blood specimen (specimen) BLOOD SPECIMEN / Unknown Venipuncture / Unknown 02/09/2014 4:30 AM MATERIAL CREW SUPERVISOR 02/09/2014 4:53 AM MATERIAL CREW SUPERVISOR Narrative [facility] - 02/09/2014 5:40 AM MATERIAL CREW SUPERVISOR Antibodies to HCV not detected; does not exclude the possibility of exposure to HCV. Dilshad Jacome MD SEND OUTS [facility] [address] [place] [id number], * XR MAMMO BILAT SCREEN FFDM (08/16/2011 [...] Computer-Aided Detection. ?? COMPARISON FILMS: Yes 07/04/10 [facility] 06/28/09 [facility] FINDINGS: ??Mammographically, the breast tissue is heterogeneously [...] of Computer-Aided Detection. COMPARISON FILMS: Yes 07/04/10 [facility] 06/28/09 [facility] FINDINGS: Mammographically, the breast tissue is heterogeneously [...] CDT) CHOLESTEROL,TOTAL 150 110 - 199 mg/dL [facility] TRIGLYCERIDES 78 <150 mg/dL [facility] HDL CHOLESTEROL 49 >40 mg/dL [facility] CHOL/HDL RATIO 3.06 <4.51 [facility] LDL CHOLESTEROL 85 <131 mg/dL [facility] PATIENT STATUS Fasting [facility] Blood specimen (specimen) BLOOD SPECIMEN / Unknown 06/15/2008 7:26 AM CDT 06/15/2008 7:20 AM CDT Priya Menjivar CHEMISTRY [facility] [address] [place] [address] * XR DEXA BONE DENSITY 2 SITES (06/04/2007 8:47 AM MATERIAL CREW SUPERVISOR) Anatomical Region Laterality Modality Spine, HIPS, HIPL, HIPR Other 06/04/2007 8:47 AM MATERIAL CREW SUPERVISOR Narrative 06/07/2007 1:15 PM MATERIAL CREW SUPERVISOR Please see scanned document for results of this study. Procedure Note Priya Menjivar D - 06/07/2007 Please see scanned document for results of this study. Priya Menjivar DEXA from Last 3 Months or Most Recently Relevant to Health Maintenance Advance Directives * Full Code (Latest Code Status on File) Date Activated Date Inactivated Comments 02/07/2014 2:44 PM 02/20/2014 6:50 PM Care Teams Industrial Servicer Relationship Specialty Start Date End Date Mayela Smith MD PCP - General Internal Medicine 02/12/14JulySavannah RN, BSN [address] [address] Roaster Operator Oncology 03/03/14
--- OUTSIDE RECORDS SUMMARY | 2023-10-12 14:49 | XMS_ITS | Encounter Summary ---
Author Organization [facility] Address [address] [place] [address] Care Team Providers Care Marine Designer Name Role Phone Elsewhere, Pcp Primary Care Provider Unavailabl e Reason for Visit * Reason Onset Date Comments Pre-visit Intake 07/23/2023 * Appointment Request (Routine) - Authorized Specialty Diagnoses / Procedures Referred By Magno t Referred To Contact Neurology Referral ID Status Reason Start Date Expiration Date V isits Requested Visits Authorized [id number] Authorized 06/07/2023 06/06/2024 1 1 Encounter Details Date Type Department Care Team (Latest Contact Info) Description 07/23/2023 7:45 AM CDT Clinical Communication Virtual Review in [address] [phone] Pre-visit Intake Social History Tobacco Use Types Packs/Day Years Used Date Smoking Tobacco: Never Passive Smoke Exposure: Past Smokeless Tobacco: Never Tobacco Cessation:Counseling Given: Not Answered Passive Exposure Comments:Childhood exposure. Alcohol Use Standard Drinks/Week Comments Not Currently 0 (1 standard drink = 0.6 oz pur e alcohol) [facility] Utilities Answer Date Recorded In the [...] often do you attend chur ch or mandaen services? More than 4 times per year 04/04/2022 Do you belong to any clubs o r organizations such as worship groups, unions, fraternal or athletic groups, or [...] and heating? Not hard at all 08/26/2022 [facility] [place] of Occupat ional Health - Occupational Stress [...] your living situation today? I have a [facility] place to live 07/20/2023 Education [...] on filedocumented in this encounter Care Teams Marine Designer Relationship Specialty Start Date End Date Elsewhere, Pcp PCP - General Internal Medicine 12/28/22 documented as of this encounter
--- OUTSIDE RECORDS SUMMARY | 2023-10-12 14:49 | XMS_ITS | Encounter Summary ---
Author Organization [facility] Address [address] [place] [address] Care Team Providers Care Certified Ophthalmic Technician Name Role Phone Elsewhere, Pcp Primary Care Provider Unavailabl e Encounter Details Date Type Department Care Team (Latest Contact Info) Description 08/06/2023 7:09 AM CDT - 08/06/2023 11:59 PM CDT Hospital Encounter Department of Laboratory Medicine and Pathology, [facility] in [place], [place] [address] [place] [address] Jonathan Richardson M.D. [address] [place] [phone] Gammopathy Monoclonal Nonspecific Discharge Disposition: Home or Self Care Social History Tobacco Use Types Packs/Day Years Used Date Smoking Tobacco: Never Passive Smoke Exposure: Past Smokeless Tobacco: Never Passive Exposure Comments:Ch ildhood exposure. Alcohol Use Standard Drinks/Week Comments Not Currently 0 (1 standard drink = 0.6 oz pur e alcohol) [facility] Utilities Answer Date Recorded In the past 12 months has [employer], gas, oil, or water [employer] threatened to shut off services in your [...] often do you attend chur ch or yarsani services? More than 4 times per year [...] and heating? Not hard at all 08/26/2022 [facility] [place] [facility] of Occupat ional Health - [...] your living situation today? I have a [facility] place to live 07/20/2023 Education Answer [...] documented in this encounter Results * (ABNORMAL) Electrophoresis, Protein, 24 hour, Urine [...] CDT Jonathan Richardson M.D. LAB URINE ORDERABLES [facility] [address] [place] [address] [facility] [address] [place] [address] [facility] [address] [place] [address] [place] [address] documented in this encounter Visit Diagnoses Diagnosis Gammopathy Monoclonal Nonspecific documented in this encounter Care Teams Certified Ophthalmic Technician Relationship Specialty Start Date End Date Elsewhere, Pcp PCP - General Internal Medicine 12/28/22 documented as of this encounter
--- OUTSIDE RECORDS SUMMARY | 2023-10-12 14:49 | XMS_ITS | Encounter Summary ---
Author Organization [facility] Address [address] [place] [address] Care Team Providers Care Centrifugal Chiller Technician Name Role Phone Elsewhere, Pcp Primary Care Provider Unavailabl e Reason for Visit * Appointment Request (Routine) - Closed Specialty Diagnoses / Procedures Referred By Magno t Referred To Contact Neurology Diagnoses Parkinsonism (HCC) Referral ID Status Reason Start Date Expiration Date Visits Re quested Visits Authorized [id number] Closed 04/04/2023 04/03/2024 1 1 Encounter Details Date Type Department Care Team (Latest Contact Info) Description 07/24/2023 2:30 PM CDT Comprehensive Visit Department of Neurology in [place], [place] [address] [place] [phone] Riri Harding M.D., Ph.D. [address] [place] [phone] Parkinsonism Unspecified (HCC) (Primary Dx) Social History [...] any clubs o r organizations such as holiness groups, unions, fraternal or athletic groups, or [...] and heating? Not hard at all 08/26/2022 [facility] of Occupat ional Health - Occupational Stress [...] your living situation today? I have a [facility] place to live 07/20/2023 Education Answer [...] I later found, by Dr. Steinberg in [place]. He wrote that at that time, she [...] an uncle with Parkinson's disease. Examination: The credit front office developer recorded her standing blood pressure and obtain [...] escalate the dose any further. This may returning officer to be her dose going forward and [...] Primary documented in this encounter Care Teams Centrifugal Chiller Technician Relationship Specialty Start Date End Date Elsewhere, Pcp PCP - General Internal Medicine 12/28/22 documented as of this encounter
--- OUTSIDE RECORDS SUMMARY | 2023-10-12 14:49 | XMS_ITS | Encounter Summary ---
Author Organization [facility] Address [address] [place] [address] Care Team Providers Care Household Appliances Service Technician Name Role Phone Elsewhere, Pcp Primary Care Provider Unavailabl e Reason for Referral * Outpatient (Routine) - Closed Specialty Diagnoses / Procedures Referred By Magno isaca Referred To Contact Hematology Oncology Jonathan Richardson M.D. [address] [place] [phone] [facility] Referral ID Status Reason Start Date Expiration Date Visits Re quested Visits Authorized [id number] Closed 03/07/2023 03/06/2026 1 1 ATOR LIGHTS Reason for Visit * Outpatient (Routine) - Closed Specialty Diagnoses / Procedures Referred By Contnoemi t Referred To Contact Hematology Diagnoses Gammopathy Monoclonal Nonspecific Buddy Ceja M.D. [address] [place] [phone] [facility] Referral ID Status Reason Start Date Expiration Date Visits Re quested Visits Authorized [id number] Closed 01/29/2023 01/29/2024 1 1 Encounter Details Date Type Department Care Team (Late st Contact Info) Description 03/07/2023 10:30 AM OPERATOR LIGHTS Telemedicine Division of Hematology in [place], [place] [address] [place] [phone] Jonathan Richardson M.D. [address] [place] [phone] Gammopathy Monoclonal Nonspecific (Primary Dx) Social History [...] often do you attend chur ch or oriental orthodox services? More than 4 times per [...] and heating? Not hard at all 08/26/2022 [facility] of Occupat ional Health - Occupational Stress [...] living situation today? I have a [facility] place to live 08/26/2022 Education Answer Date [...] technology by Jonathan Richardson M.D. in [facility] to the patient in Patient's Home [...] Otherwise would repeat monoclonal protein testing yearly. ATOR LIGHTS documented in this encounter Miscellaneous Notes * Addendum Note - Ashtyn Patricio - 03/07/2023 10:30 AM CSTAddended by: ASHTYN PATRICIO on: 07/09/2023 03:34 PM Modules accepted: Orders documented in this encounter Plan of Treatment Scheduled Referrals Name Type Priority Associated Diagnoses Order Schedule Hematology office visit (clinic) [facility]; [facility]; General Outpatient Referral Routine Expected: 09/06/2023 (Approximate), [...] M.D. LAB BLOOD ADD-ON Performing Organization Address [facility] [[email or web address]] Co de Phone Number [facility] [address] [place] [address], [facility] [address] [place] [address] * Viscosity (09/27/2023 8:54 AM CDT) Pathologist [facility] Viscosity, S 1.1 <=1.5 cpoise 09/28/2023 10:25 AM CDT [facility] Comment: ----ADDITIONAL INFORMATION---- This test has been modified from the brake operator helper's instructions. Its performance characteristics were determined by [facility] in a manner consistent with CLIA requirements. This test has not been cleared or approved by the U.S. Food and Drug Administration. Blood (Blood, Venous) 09/27/2023 8:54 AM CDT 09/28/2023 6:57 AM CDT Jonathan Richardson M.D. LAB BLOOD NON ADD-ON Performing Organization Address [facility] [[email or web address]] Co de Phone Number [facility] [address] [place] [address] [facility] [address] [place] [address] * LD (Lactate Dehydrogenase) (09/27/2023 8:54 AM CDT) Lactate Dehydrogenase (LD), S 135 122 - 222 U/L 09/27/2023 10:08 AM CDT [facility] Blood (Blood, Venous) 09/27/2023 8:54 AM CDT 09/27/2023 9:35 AM CDT Jonathan Richardson M.D. LAB BLOOD NON ADD-ON [facility] [address] [place] [address], [facility] DTL [facility] [address] [place] [address] * (ABNORMAL) Comprehensive Metabolic Panel (09/27/2023 8:54 AM CDT) [facility] Potassium, S 4.2 3.6 - 5.2 [...] CDT Jonathan Richardson M.D. LAB BLOOD ADD-ON [facility] [address] [place] [address], [facility] [address] [place] [address] * CBC with Differential, Blood (09/27/2023 8:54 [...] CDT Jonathan Richardson M.D. LAB BLOOD ADD-ON [facility] [address] [place] [address], [facility] DTL [facility] [address] [place] [address] [facility] 200 [place] [address] documented in this encounter Visit Diagnoses Diagnosis Gammopathy Monoclonal Nonspecific- Primary documented in this encounter Care Teams Household Appliances Service Technician Relationship Specialty Start Date End Date Elsewhere, Pcp PCP - General Internal Medicine 12/28/22 documented as of this encounter
--- NOTE | 2023-10-12 15:00 | CRLHL7_ITS ---
For Patients: As a result of the Century Cures Act, medical imaging exams and procedure reports are released immediately into your electronic medical record. You may view this report before your referring provider. If you have questions, please contact your health care provider. CLINICAL HISTORY: Postmenopausal bleeding TECHNIQUE: 2D dow scale and color Doppler images were acquired of the pelvis using a transvaginal approach. FINDINGS: Right-sided uterine fibroid is present measuring 1.6 x 1.3 x 1.6 cm. Left-sided fibroid also present measuring 1.5 x 1.5 x 1.9 cm. There is an exophytic fibroid arising from the uterine fundus measuring 3.2 x 2.7 x 3.9 cm. A small posterior fibroid is present on the right measuring 1.1 x 0.7 x 1.2 cm. The endometrial lining measures 3 mm in thickness. The ovaries are not visualized. There are no suspicious fluid collections within the cul-de-sac. IMPRESSION: Multiple uterine fibroids measuring up to 3.9 cm. Endometrial thickness 3 millimeters. A right mid uterine fibroid measuring 1.6 cm partially obscures the fundal endometrial stripe. No endometrial fluid. Dictated by Fabian Sky MD @ 10/13/2023 8:08:21 PM (Electronically Signed)
== END 2023-10-12 14:45 | disposition home or self-care (01) ==
LOC: US 14:45
PROVIDERS: PCP Internal Medicine; Visit Provider Internal Medicine
DX: N95.0 Postmenopausal bleeding (principal); D25.9 Leiomyoma of uterus, unspecified
CPT/HCPCS: 76830

== ENCOUNTER 2024-01-10 13:46 | Outpatient (CLI) | payer MEDICARE, SELFPAY ==
--- OUTSIDE RECORDS SUMMARY | 2024-01-10 13:52 | XMS_ITS | Referral Summary ---
Author Organization [facility] Address [address] [place] [address] Care Team Providers Care Vertical Boring Mill Operator Name Role Phone Elsewhere, Pcp Primary Care Provider Unavailabl e Source Comments Patient records contain information from all sites at [facility]. For routine questions regarding patient records, call [phone] during business hours, M-F 8:00 AM - 5:00 PM Central Time. Record requests for emergency care only can be directed to [phone] at any time.[facility] Encounters Date Type Department Care Team Description 12/23/2023 Refill Division of Gastroenterology in [place], [place] [address] [place] [address] Buddy Ceja M.D. Med Refill from Last [...] day. 270 tablet 3 08/09/2023 5 Active multivitamin (DAILY VITAMIN ORAL) 04/02/2023 Active GaviLyte-G 236-22.74-6.74 -5.86 gram solution 4pm day prior to procedure. Drink 8oz glass every 15 minutes until 1/2 of solution is gone. 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 04/05/2022 Cholestasis Intrahepatic 12/24/2019 Hepatitis Chronic 06/15/2014 Hypothyroidism 06/18/2009 Resolved Problems Problem Noted Date Diagnosed Date Resolved Date Acute Respiratory Distress Syndrome 02/07/2014 10/05/2022 Respiratory Failure 02/07/2014 10/06/19 23 Bradycardia 07/04/2010 10/05/2022 Overview (10/05/2022): Unremarkable EKG 2006, normal stress echocardiogram in 2004 Social History Tobacco Use Types Packs/Day Years Used Date Smoking Tobacco: Never Passive Smoke Exposure: Past Smokeless Tobacco: Never Tobacco Cessation:Counseling Given: Not Answered Passive Exposure Comments:Childhood exposure. Alcohol Use Standard Drinks/Week Comments Not Currently 0 (1 standard drink = 0.6 oz pur e alcohol) [facility] Utilities Answer Date Recorded In the past 12 months has e [employer], gas, oil, or water [employer] threatened to shut off services in your [...] often do you attend chur ch or scientology services? More than 4 times per year 04/04/2022 Do you belong to any clubs o r organizations such as confucianism groups, unions, fraternal or athletic groups, or [...] and heating? Not hard at all 08/26/2022 [facility] [place] of Occupat ional Health - Occupational Stress [...] your living situation today? I have a [facility] place to live 07/20/2023 Education [...] on file Medical Devices Explanted Type Area Customer Operations Intern Device Identifier Shelf Expiration Date Model / Serial / Lot Clp Jul Lg Intnl 9.0 - [id number] Explanted:Qty : 1 on 12/28/2022 at [facility] [employer] e.g. pins/screws/ rods [employer] [id number] 09/30/2027 MCS20 / / [id number] Clp Jul Lg Intnl Shrt 9.75 - [id number] Explanted:Qty : 1 on 12/28/2022 at [facility] Hardware e.g. pins/screws/ rods [employer] [id number] / / Procedures Procedure Name Priority Date/Time Associated Diagnosis Comments COMPREHENSIVE METABOLIC PANEL, S/P Routine 09/27/2023 8:54 AM CDT Gammopathy Monoclonal Nonspecific THYROID FUNCTION CASCADE, S Routine 08/19/2014 9:05 AM CDT from Last 3 Months or Most Recently Relevant to Health Maintenance Results * (ABNORMAL) Comprehensive Metabolic Panel (09/27/2023 8:54 [...] M.D. LAB BLOOD ADD-ON Performing Organization Address City/[facility]/ZIP Co de Phone Number [facility] [address] [place] [address], [facility] [address] [place] [address] * Thyroid Function [place] (08/19/2014 9:05 AM CDT) TSH, Sensitive 0.5 0.3 - 4.2 MIU/L [facility] 08/19/2014 9:05 AM CDT 08/19/2014 9:05 AM CDT Jori HaneySElsy LAB BLOOD ADD-ON [facility] [address] [place] [address], [facility] from Last 3 Months or Most Recently Relevant to Health Maintenance Care Teams Vertical Boring Mill Operator Relationship Specialty Start Date End Date Elsewhere, Pcp PCP - General Internal Medicine 12/28/22
--- OUTSIDE RECORDS SUMMARY | 2024-01-10 13:52 | XMS_ITS ---
Author Organization [facility] Address [address] [place] [address] Care Team Providers Care Earth Mover Name Role Phone Unavailable Unavailable Unavailable Surgery Details Not on file Complications Check Surgery Details section. Procedure Estimated Blood Loss Check Surgery Details section. Procedure Findings Check Surgery Details section. Procedure Specimens Taken Check Surgery Details section.
--- OUTSIDE RECORDS SUMMARY | 2024-01-10 13:52 | XMS_ITS | Clinical Summary ---
Author Organization [facility] Address [address] [place] [address] Care Team Providers Care Sorting Grapple Operator Name Role Phone Elsewhere, Pcp Primary Care Provider Unavailabl e Source Comments Patient records contain information from all sites at [facility]. For routine questions regarding patient records, call [phone] during business hours, M-F 8:00 AM - 5:00 PM Central Time. Record requests for emergency care only can be directed to [phone] at any time.[facility] Allergies No known active allergies Medications Medication [...] a day. 270 tablet 3 08/09/2023 Active multivitamin (DAILY VITAMIN ORAL) 04/02/2023 Active [...] Description 12/23/2023 Refill Division of Gastroenterology in [place], [place] [address] [place] [address] Buddy Ceja M.D. Med Refill from Last [...] drink = 0.6 oz pur e alcohol) [facility] Utilities Answer Date Recorded In the past 12 months has th e electric, gas, oil, or water company [...] often do you attend chur ch or presybeterian services? More than 4 times per year 04/04/2022 Do you belong to any clubs o r organizations such as jew groups, unions, fraternal or athletic groups, or [...] and heating? Not hard at all 08/26/2022 [facility] [place] of Occupat ional Health - Occupational Stress [...] your living situation today? I have a [facility] place to live 07/20/2023 Education Answer Date [...] Fall Risk Screen (Annual) 04/02/2023 COVID-19 Vaccine (2023-05 5 season) 2023 04/13/2023, 01/25/2022, 03/09/2021, Additional history [...] history exists Pneumococcal vaccine (65+ years) Completed 10/20/19 23, 09/12/2021 Medical Devices Explanted Type Area Card Cleaner Device Identifier Shelf Expiration Date Model / Serial / Lot Clp Apr Lgs Intnl 9.0 - [id number] Explanted:Qty : 1 on 12/28/2022 at [facility] Hardware e.g. pins/screws/ rods [employer] [id number] 09/30/2027 MCS20 / / [id number] Clp Apr Lg Intdash [facility] 9.75 - [id number] Explanted:Qty : 1 on 12/28/2022 at [facility] Hardware e.g. pins/screws/ rods [employer] MSM20 / / Procedures Procedure Name Priority Date/Time Associated Diagnosis Comments COMPREHENSIVE METABOLIC PANEL, S/P Routine 09/27/2023 8:54 AM CDT Gammopathy Monoclonal Nonspecific THYROID FUNCTION CASCADE, S Routine 08/19/2014 9:05 AM CDT from Last 3 Months or Most Recently Relevant to Health Maintenance Results * (ABNORMAL) Comprehensive Metabolic Panel (09/27/2023 8:54 AM CDT) Pathologist [facility] Potassium, S 4.2 3.6 - 5.2 mmol/L [...] M.D. LAB BLOOD ADD-ON Performing Organization Address City/[facility]/ZIP Co de Phone Number [facility] [address] D[place] [facility] [address] [place] [address] * Thyroid Function [place] (08/19/2014 9:05 AM CDT) TSH, Sensitive 0.5 0.3 - 4.2 MIU/L [facility] 08/19/2014 9:05 AM CDT 08/19/2014 9:05 AM CDT Jori Harley LAB BLOOD ADD-ON [facility] [address] from Last 3 Months or Most Recently Relevant to Health Maintenance Care Teams Sorting Grapple Operator Relationship Specialty Start Date End Date Elsewhere, Pcp PCP - General Internal Medicine 12/28/22
--- OUTSIDE RECORDS SUMMARY | 2024-01-10 13:52 | XMS_ITS | Encounter Summary ---
Author Organization [facility] Address [address] [place] [address] Care Team Providers Care Medical Insurance Collector Name Role Phone Elsewhere, Pcp Primary Care Provider Unavailabl e Encounter Details Date Type Department Care Team (Late st Contact Info) Description 09/25/2023 Clinical Communication Division of Hematology in [place], [place] [address] [place] [phone] Jonathan Richardson M.D. [address] [place] [phone] Social History Tobacco Use Types Packs/Day Years Used Date Smoking Tobacco: Never Passive Smoke Exposure: Past Smokeless Tobacco: Never Passive Exposure Comments:Ch ildhood exposure. Alcohol Use Standard Drinks/Week Comments Not Currently 0 (1 standard drink = 0.6 oz pur e alcohol) [facility] Utilities Answer Date Recorded In the past 12 months has [facility] [employer], gas, oil, or water [employer] threatened to shut off services in your [...] How often do you attend chur or samaritan services? More than 4 times per year 04/04/2022 Do you belong to any clubs o r organizations such as hinduism groups, unions, fraternal or athletic groups, or [...] and heating? Not hard at all 08/26/2022 [facility] of Occupat ional Health - [...] living situation today? I have a [facility] place to live 07/20/2023 Education [...] on filedocumented in this encounter Care Teams Medical Insurance Collector Relationship Specialty Start Date End Date Elsewhere, Pcp PCP - General Internal Medicine 12/28/22 documented as of this encounter
--- OUTSIDE RECORDS SUMMARY | 2024-01-10 13:52 | XMS_ITS | Encounter Summary ---
Author Organization [facility] Address [address] [place] [address] Care Team Providers Care Technical Producer Name Role Phone Elsewhere, Pcp Primary Care Provider Unavailabl e Reason for Visit * Reason Comments Med Refill Encounter Details Date Type Department Care Team ([facility] st Contact Info) Description 12/23/2023 Refill Division of Gastroenterology in [place], [place] [address] [place] [phone] Buddy Ceja M.D. [address] [place] [phone] Med Refill Social History Tobacco Use Types Packs/Day Years Used Date Smoking Tobacco: Never Passive Smoke Exposure: Past Smokeless Tobacco: Never Passive Exposure Comments:Ch ildhood exposure. Alcohol Use Standard Drinks/Week Comments Not Currently 0 (1 standard drink = 0.6 oz pur e alcohol) [facility] Utilities Answer Date Recorded In the past 12 months has [facility] [employer] gas, oil, or water [email or web address] threatened to shut off services in your [...] any clubs o r organizations such as restorationism groups, unions, fraternal or athletic groups, or [...] and heating? Not hard at all 08/26/2022 [facility] of Occupat ionne Health - Occupational Stress Questionnaire Answer Date [...] your living situation today? I have a [facility] place to live 07/20/2023 Education [...] (HCC) documented in this encounter Care Teams Technical Producer Relationship Specialty Start Date End Date Elsewhere, Pcp PCP - General Internal Medicine 12/28/22 documented as of this encounter
--- NOTE | 2024-01-10 14:00 | CRLHL7_ITS ---
For Patients: As a result of the Century Cures Act, medical imaging exams and procedure reports are released immediately into your electronic medical record. You may view this report before your referring provider. If you have questions, please contact your health care provider. BILATERAL SCREENING MAMMOGRAM WITH COMPUTER-AIDED DETECTION AND TOMOSYNTHESIS TECHNIQUE: CC and MLO views were obtained. These mammographic images have been obtained using full-field digital technique. These mammographic images were interpreted with the benefit of computer-aided detection. Breast Tomosynthesis was used in this interpretation. COMPARISON FILM: 01/08/23, 12/30/21, 12/14/20. FINDINGS: There are scattered areas of fibroglandular density. IMPRESSION: There is no radiographic evidence for malignancy. ASSESSMENT: BI-RADS Category 1: Negative RECOMMENDATION: Routine screening mammogram in 1 year. A lay language report of this examination will be provided to the patient. Fabian Sky M.D. Diagnostic Radiologist [email or web address] SP/Dictated by: Fabian Sky MD @ 01/11/2024 8:51:00 AM (Electronically Signed)
== END 2024-01-10 13:47 | disposition home or self-care (01) ==
PROVIDERS: PCP Internal Medicine; Visit Provider Internal Medicine
DX: Z12.31 Encounter for screening mammogram for malignant neoplasm of breast (principal)
CPT/HCPCS: 77063; 77067

== ENCOUNTER 2024-06-19 15:30 | Outpatient (CLI) | payer MEDICARE, SELFPAY | END 2024-06-19 15:31 | disposition home or self-care (01) | PROVIDERS: PCP Internal Medicine; Referring Provider Internal Medicine; Visit Provider Internal Medicine | DX: K75.89 Other specified inflammatory liver diseases (principal) | CPT/HCPCS: 80076 ==

== ENCOUNTER 2024-07-04 20:27 | Emergency (ER) | payer MEDICARE, SELFPAY ==
--- OUTSIDE RECORDS SUMMARY | 2024-07-04 20:29 | XMS_ITS | Encounter Summary ---
Author Organization [facility] Address [address] [place] [address] Care Team Providers Care Digital Publishing Specialist Name Role Phone [facility] Primary Care Provider Encounter Details Date Type Department Care Team (Latest Contact Info) Description 06/30/2024 Travel Social History Tobacco Use Types Packs/Day Years Used Date Smoking Tobacco: Never Assessed Comments Unknown Sex and Gender Information Value Date Recorded Sex Assigned at Not on file Legal Sex Female 6:15 PM CDT Gender Identity Not on file Sexual Orientation Not on file documented as of this encounter Plan of Treatment Not on file documented as of this encounter Visit Diagnoses Not on filedocumented in this encounter Care Teams Digital Publishing Specialist Relationship Specialty Start Date End Date [address] [address] PCP - General 06/30/24 documented as of this encounter
--- OUTSIDE RECORDS SUMMARY | 2024-07-04 20:29 | XMS_ITS | Clinical Summary ---
Author Organization [facility] Address [address] [place] [id number] Care Team Providers Care Drafter Apprentice Name Role Phone Clinic, [facility] Primary Care Provider Allergies No known active allergies Encounters Date Type Department Care Team Description 06/30/2024 9:23 PM CDT - 07/01/2024 5:22 AM CDT Emergency [facility] Emergency Dept [address] [place] [id number] Jeimy Nolen MD Vision changes; Meningioma (H) Discharge Disposition: Home or Self Care 06/30/2024 Travel from Last 3 Months Social History Tobacco Use Types Packs/Day Years Used Date Smoking Tobacco: Never Assessed Comments Unknown Sex and Gender Information Value Date Recorded Sex Assigned at Not on file Legal Sex Female 6:15 PM CDT Gender Identity Not on file Sexual Orientation Not on file Last Filed Vital Signs Vital Sign Reading Time Taken Comments Blood Pressure 137/77 06/30/2024 6:28 PM CDT Pulse 51 06/30/2024 6:28 PM CDT Temperature 36.1 C (97 F) 06/30/2024 6:28 PM CDT Respiratory Rate 18 06/30/2024 6:28 PM CDT Oxygen Saturation 100% 06/30/2024 6:28 PM CDT Inhaled Oxygen Concentration - - Weight 63 kg (138 lb 14.2 oz) 06/30/2024 6:28 PM CDT Height 157.5 cm (5' 2) 06/30/2024 6:28 PM CDT Body Mass Index 25.4 06/30/2024 6:28 PM CDT Plan of Treatment Health Maintenance Due Date Last Done Comments ADVANCE CARE PLANNING 1955 ANNUAL REVIEW OF HM ORDERS 1956 CT COLONOGRAPHY 1956 FIT 1956 FLEX SIG 1956 sDNA (Cologuard) 1956 COLONOSCOPY 1966 COLORECTAL CANCER SCREENING 1966 LIPID 1996 MAMMO SCREENING 08/15/2013 08/16/2011 FALL RISK ASSESSMENT 2021 MEDICARE ANNUAL WELLNESS VISIT 2021 DEXA 06/03/2022 06/04/2007 INFLUENZA VACCINE (#1) 2023 , 01/24/2022, 03/09/2021, Additional history exists PHQ-2 (once per calendar year) 2024 COVID-19 Vaccine ( season) 2024 01/19/2024, 04/13/2023, 01/25/2022, Additional history exists DIABETES SCREENING 07/01/2027 06/30/2024 DTAP/TDAP/TD IMMUNIZATION (3 - Td or Tdap) 11/15/2030 11/15/2020, 07/04/2010, 05/27/2007, Additional history exists RSV VACCINE (1 - 1-dose 75+ series) 07/08/2031 HEPATITIS C SCREENING Completed 02/09/2014 ZOSTER IMMUNIZATION Completed 09/13/2019, 05/31/2019, 10/17/2016 Pneumococcal Vaccine: 50+ Years Completed 10/19/2022, 09/12/2021 HPV IMMUNIZATION Aged Out No longer e ligible based on patient's age to complete this topic MENINGITIS IMMUNIZATION Aged Out No l onger eligible based on patient's age to complete this topic Procedures Procedure Name Priority Date/Time Associated Diagnosis Comments MRA BRAIN ([place]) W/O CONTRAST STAT 07/01/2024 2:40 AM CDT MRA NECK (CAROTIDS) W/O & W CONTRAST STAT 07/01/2024 2:40 AM CDT MR BRAIN W/O & W CONTRAST STAT 07/01/2024 2:39 AM CDT EKG 12-LEAD, TRACING ONLY STAT 06/30/2024 11:30 PM CDT CBC WITH PLATELETS & DIFFERENTIAL STAT 06/30/2024 8:37 PM CDT CBC WITH PLATELETS AND DIFFERENTIAL STAT 06/30/2024 8:37 PM CDT EXTRA RED TOP TUBE STAT 06/30/2024 8: 37 PM CDT EXTRA BLUE TOP TUBE STAT 06/30/2024 8 :37 PM CDT BASIC METABOLIC PANEL STAT 06/30/2024 8:37 PM CDT EXTRA TUBE STAT 06/30/2024 8:37 PM CDT from Last 3 Months Results * MRA Brain ([place]) wo Contrast (07/01/2024 2:40 AM CDT) Anatomical Region Laterality Modality Head, SUBRAD MR NEURO, UMP MR NEURO, RAD MR Magnetic Resonance 07/01/2024 2:40 AM CDT Impressions 07/01/2024 2:51 AM CDT IMPRESSION: HEAD MRI: 1. No acute intracranial abnormality. 2. Left frontal convexity 1.7 cm dural based enhancing lesion, likely meningioma. Mild mass effect on the underlying left frontal lobe without edema. 3. Complete opacification of the left sphenoid sinus. HEAD MRA: Normal MRA [place]. NECK MRA: Normal neck MRA. Narrative 07/01/2024 2:51 AM CDT EXAM: MR BRAIN W/O and W CONTRAST, MRA BRAIN ([place]) W/O CONTRAST, MRA NECK (CAROTIDS) W/O and W CONTRAST LOCATION: [facility] DATE: 07/01/2024 INDICATION: vision changes, hx of meningioma resection COMPARISON: None. CONTRAST: 10 mL Gadavist TECHNIQUE: 1) Routine multiplanar multisequence head MRI without and with intravenous contrast. 2) 3D jpjj-pn-mauysx head MRA without intravenous contrast. 3) Neck MRA without and with IV contrast. Stenosis measurements made according to NASCET criteria unless otherwise specified. FINDINGS: HEAD MRI: INTRACRANIAL CONTENTS: No acute or subacute infarct. No acute hemorrhage or extra-axial collection. Left frontal convexity 1.7 x 1.7 x 1.6 cm (AP by TV by CC) dural based enhancing lesion, likely meningioma. Mild mass effect on the underlying left frontal lobe without edema. Normal brain parenchymal signal. Mild to moderate generalized cerebral atrophy. No hydrocephalus. Normal position of the cerebellar tonsils. No pathologic contrast enhancement. SELLA: No abnormality accounting for technique. OSSEOUS STRUCTURES/SOFT TISSUES: Normal marrow signal. The major intracranial vascular flow voids are maintained. ORBITS: No abnormality accounting for technique. SINUSES/MASTOIDS: Complete opacification of the left sphenoid sinus. No middle ear or mastoid effusion. HEAD MRA: ANTERIOR CIRCULATION: No stenosis/occlusion, aneurysm, or high flow vascular malformation. Standard [place] anatomy. POSTERIOR CIRCULATION: No stenosis/occlusion, aneurysm, or high flow vascular malformation. Balanced vertebral arteries supply a normal basilar artery. NECK MRA: RIGHT CAROTID: No measurable stenosis or dissection. LEFT CAROTID: No measurable stenosis or dissection. VERTEBRAL ARTERIES: No focal stenosis or dissection. Balanced vertebral arteries. AORTIC ARCH: Classic aortic arch anatomy with no significant stenosis at the origin of the great vessels. Procedure Note Kian Morales MD - 07/01/2024 EXAM: MR BRAIN W/O and W CONTRAST, MRA BRAIN ([place]) W/OCONTRAST, MRA NECK (CAROTIDS) W/O and W CONTRAST LOCATION: [facility] DATE: 07/01/2024 INDICATION: vision changes, hx of meningioma resection COMPARISON: None. CONTRAST: 10 mL Gadavist TECHNIQUE: 1) Routine multiplanar multisequence head MRI without and with intravenouscontrast. 2) 3D pamd-nj-maplcn head MRA without intravenous contrast. 3) Neck MRA without and with IV contrast. Stenosis measurements madeaccording to NASCET criteria unless otherwise specified. FINDINGS: HEAD MRI: INTRACRANIAL CONTENTS: No acute or subacute infarct. No acute hemorrhageor extra-axial collection. Left frontal convexity 1.7 x 1.7 x 1.6 cm (APby TV by CC) dural based enhancing lesion, likely meningioma. Mild masseffect on the underlying left frontal lobe without edema. Normal brain parenchymal signal. Mild tomoderate generalized cerebral atrophy. No hydrocephalus. Normal positionof the cerebellar tonsils. No pathologic contrast enhancement. SELLA: No abnormality accounting for technique. OSSEOUS STRUCTURES/SOFT TISSUES: Normal marrow signal. The majorintracranial vascular flow voids are maintained. ORBITS: No abnormality accounting for technique. SINUSES/MASTOIDS: Complete opacification of the left sphenoid sinus. Nomiddle ear or mastoid effusion. HEAD MRA: ANTERIOR CIRCULATION: No stenosis/occlusion, aneurysm, or high flowvascular malformation. Standard [place] anatomy. POSTERIOR CIRCULATION: No stenosis/occlusion, aneurysm, or high flowvascular malformation. Balanced vertebral arteries supply a normal basilarartery. NECK MRA: RIGHT CAROTID: No measurable stenosis or dissection. LEFT CAROTID: No measurable stenosis or dissection. VERTEBRAL ARTERIES: No focal stenosis or dissection. Balanced vertebralarteries. AORTIC ARCH: Classic aortic arch anatomy with no significant stenosis atthe origin of the great vessels. IMPRESSION: HEAD MRI: 1. No acute intracranial abnormality. 2. Left frontal convexity 1.7 cm dural based enhancing lesion, likelymeningioma. Mild mass effect on the underlying left frontal lobe withoutedema. 3. Complete opacification of the left sphenoid sinus. HEAD MRA: Normal MRA [place]. NECK MRA: Normal neck MRA. us Jeimy Noeln MD IMG MRI ORDERABL ES Final Result * MRA Neck (Carotids) wo & w Contrast (07/01/2024 2:40 AM CDT) Anatomical Region Laterality Modality Neck, SUBRAD MR NEURO, UMP MR NEURO, RAD MR Magnetic Resonance 07/01/2024 2:40 AM CDT Impressions 07/01/2024 2:51 AM CDT IMPRESSION: HEAD MRI: 1. No acute intracranial abnormality. 2. Left frontal convexity 1.7 cm dural based enhancing lesion, likely meningioma. Mild mass effect on the underlying left frontal lobe without edema. 3. Complete opacification of the left sphenoid sinus. HEAD MRA: Normal MRA [place]. NECK MRA: Normal neck MRA. Narrative 07/01/2024 2:51 AM CDT EXAM: MR BRAIN W/O and W CONTRAST, MRA BRAIN ([place]) W/O CONTRAST, MRA NECK (CAROTIDS) W/O and W CONTRAST LOCATION: [facility] DATE: 07/01/2024 INDICATION: vision changes, hx of meningioma resection COMPARISON: None. CONTRAST: 10 mL Gadavist TECHNIQUE: 1) Routine multiplanar multisequence head MRI without and with intravenous contrast. 2) 3D ughd-vv-ouomme head MRA without intravenous contrast. 3) Neck MRA without and with IV contrast. Stenosis measurements made according to NASCET criteria unless otherwise specified. FINDINGS: HEAD MRI: INTRACRANIAL CONTENTS: No acute or subacute infarct. No acute hemorrhage or extra-axial collection. Left frontal convexity 1.7 x 1.7 x 1.6 cm (AP by TV by CC) dural based enhancing lesion, likely meningioma. Mild mass effect on the underlying left frontal lobe without edema. Normal brain parenchymal signal. Mild to moderate generalized cerebral atrophy. No hydrocephalus. Normal position of the cerebellar tonsils. No pathologic contrast enhancement. SELLA: No abnormality accounting for technique. OSSEOUS STRUCTURES/SOFT TISSUES: Normal marrow signal. The major intracranial vascular flow voids are maintained. ORBITS: No abnormality accounting for technique. SINUSES/MASTOIDS: Complete opacification of the left sphenoid sinus. No middle ear or mastoid effusion. HEAD MRA: ANTERIOR CIRCULATION: No stenosis/occlusion, aneurysm, or high flow vascular malformation. Standard [place] anatomy. POSTERIOR CIRCULATION: No stenosis/occlusion, aneurysm, or high flow vascular malformation. Balanced vertebral arteries supply a normal basilar artery. NECK MRA: RIGHT CAROTID: No measurable stenosis or dissection. LEFT CAROTID: No measurable stenosis or dissection. VERTEBRAL ARTERIES: No focal stenosis or dissection. Balanced vertebral arteries. AORTIC ARCH: Classic aortic arch anatomy with no significant stenosis at the origin of the great vessels. Procedure Note Kian Morales MD - 07/01/2024 EXAM: MR BRAIN W/O and W CONTRAST, MRA BRAIN ([place]) W/OCONTRAST, MRA NECK (CAROTIDS) W/O and W CONTRAST LOCATION: [facility] DATE: 07/01/2024 INDICATION: vision changes, hx of meningioma resection COMPARISON: None. CONTRAST: 10 mL Gadavist TECHNIQUE: 1) Routine multiplanar multisequence head MRI without and with intravenouscontrast. 2) 3D gsfp-gm-suexfd head MRA without intravenous contrast. 3) Neck MRA without and with IV contrast. Stenosis measurements madeaccording to NASCET criteria unless otherwise specified. FINDINGS: HEAD MRI: INTRACRANIAL CONTENTS: No acute or subacute infarct. No acute hemorrhageor extra-axial collection. Left frontal convexity 1.7 x 1.7 x 1.6 cm (APby TV by CC) dural based enhancing lesion, likely meningioma. Mild masseffect on the underlying left frontal lobe without edema. Normal brain parenchymal signal. Mild tomoderate generalized cerebral atrophy. No hydrocephalus. Normal positionof the cerebellar tonsils. No pathologic contrast enhancement. SELLA: No abnormality accounting for technique. OSSEOUS STRUCTURES/SOFT TISSUES: Normal marrow signal. The majorintracranial vascular flow voids are maintained. ORBITS: No abnormality accounting for technique. SINUSES/MASTOIDS: Complete opacification of the left sphenoid sinus. Nomiddle ear or mastoid effusion. HEAD MRA: ANTERIOR CIRCULATION: No stenosis/occlusion, aneurysm, or high flowvascular malformation. Standard [place] anatomy. POSTERIOR CIRCULATION: No stenosis/occlusion, aneurysm, or high flowvascular malformation. Balanced vertebral arteries supply a normal basilarartery. NECK MRA: RIGHT CAROTID: No measurable stenosis or dissection. LEFT CAROTID: No measurable stenosis or dissection. VERTEBRAL ARTERIES: No focal stenosis or dissection. Balanced vertebralarteries. AORTIC ARCH: Classic aortic arch anatomy with no significant stenosis atthe origin of the great vessels. IMPRESSION: HEAD MRI: 1. No acute intracranial abnormality. 2. Left frontal convexity 1.7 cm dural based enhancing lesion, likelymeningioma. Mild mass effect on the underlying left frontal lobe withoutedema. 3. Complete opacification of the left sphenoid sinus. HEAD MRA: Normal MRA [place]. NECK MRA: Normal neck MRA. Jeimy Nolen MD IMG MRI ORDERABL ES Final Result * MR Brain w/o & w Contrast (07/01/2024 2:39 AM CDT) Anatomical Region Laterality Modality Head, SUBRAD MR NEURO, UMP MR NEURO, RAD MR Magnetic Resonance 07/01/2024 2:39 AM CDT Impressions 07/01/2024 2:51 AM CDT IMPRESSION: HEAD MRI: 1. No acute intracranial abnormality. 2. Left frontal convexity 1.7 cm dural based enhancing lesion, likely meningioma. Mild mass effect on the underlying left frontal lobe without edema. 3. Complete opacification of the left sphenoid sinus. HEAD MRA: Normal MRA [place]. NECK MRA: Normal neck MRA. Narrative 07/01/2024 2:51 AM CDT EXAM: MR BRAIN W/O and W CONTRAST, MRA BRAIN ([place]) W/O CONTRAST, MRA NECK (CAROTIDS) W/O and W CONTRAST LOCATION: [facility] DATE: 07/01/2024 INDICATION: vision changes, hx of meningioma resection COMPARISON: None. CONTRAST: 10 mL Gadavist TECHNIQUE: 1) Routine multiplanar multisequence head MRI without and with intravenous contrast. 2) 3D rwok-oq-tuurfl head MRA without intravenous contrast. 3) Neck MRA without and with IV contrast. Stenosis measurements made according to NASCET criteria unless otherwise specified. FINDINGS: HEAD MRI: INTRACRANIAL CONTENTS: No acute or subacute infarct. No acute hemorrhage or extra-axial collection. Left frontal convexity 1.7 x 1.7 x 1.6 cm (AP by TV by CC) dural based enhancing lesion, likely meningioma. Mild mass effect on the underlying left frontal lobe without edema. Normal brain parenchymal signal. Mild to moderate generalized cerebral atrophy. No hydrocephalus. Normal position of the cerebellar tonsils. No pathologic contrast enhancement. SELLA: No abnormality accounting for technique. OSSEOUS STRUCTURES/SOFT TISSUES: Normal marrow signal. The major intracranial vascular flow voids are maintained. ORBITS: No abnormality accounting for technique. SINUSES/MASTOIDS: Complete opacification of the left sphenoid sinus. No middle ear or mastoid effusion. HEAD MRA: ANTERIOR CIRCULATION: No stenosis/occlusion, aneurysm, or high flow vascular malformation. Standard [place] anatomy. POSTERIOR CIRCULATION: No stenosis/occlusion, aneurysm, or high flow vascular malformation. Balanced vertebral arteries supply a normal basilar artery. NECK MRA: RIGHT CAROTID: No measurable stenosis or dissection. LEFT CAROTID: No measurable stenosis or dissection. VERTEBRAL ARTERIES: No focal stenosis or dissection. Balanced vertebral arteries. AORTIC ARCH: Classic aortic arch anatomy with no significant stenosis at the origin of the great vessels. Procedure Note Kian Morales MD - 07/01/2024 EXAM: MR BRAIN W/O and W CONTRAST, MRA BRAIN ([place]) W/OCONTRAST, MRA NECK (CAROTIDS) W/O and W CONTRAST LOCATION: [facility] DATE: 07/01/2024 INDICATION: vision changes, hx of meningioma resection COMPARISON: None. CONTRAST: 10 mL Gadavist TECHNIQUE: 1) Routine multiplanar multisequence head MRI without and with intravenouscontrast. 2) 3D aszd-tq-guwesu head MRA without intravenous contrast. 3) Neck MRA without and with IV contrast. Stenosis measurements madeaccording to NASCET criteria unless otherwise specified. FINDINGS: HEAD MRI: INTRACRANIAL CONTENTS: No acute or subacute infarct. No acute hemorrhageor extra-axial collection. Left frontal convexity 1.7 x 1.7 x 1.6 cm (APby TV by CC) dural based enhancing lesion, likely meningioma. Mild masseffect on the underlying left frontal lobe without edema. Normal brain parenchymal signal. Mild tomoderate generalized cerebral atrophy. No hydrocephalus. Normal positionof the cerebellar tonsils. No pathologic contrast enhancement. SELLA: No abnormality accounting for technique. OSSEOUS STRUCTURES/SOFT TISSUES: Normal marrow signal. The majorintracranial vascular flow voids are maintained. ORBITS: No abnormality accounting for technique. SINUSES/MASTOIDS: Complete opacification of the left sphenoid sinus. Nomiddle ear or mastoid effusion. HEAD MRA: ANTERIOR CIRCULATION: No stenosis/occlusion, aneurysm, or high flowvascular malformation. Standard [place] anatomy. POSTERIOR CIRCULATION: No stenosis/occlusion, aneurysm, or high flowvascular malformation. Balanced vertebral arteries supply a normal basilarartery. NECK MRA: RIGHT CAROTID: No measurable stenosis or dissection. LEFT CAROTID: No measurable stenosis or dissection. VERTEBRAL ARTERIES: No focal stenosis or dissection. Balanced vertebralarteries. AORTIC ARCH: Classic aortic arch anatomy with no significant stenosis atthe origin of the great vessels. IMPRESSION: HEAD MRI: 1. No acute intracranial abnormality. 2. Left frontal convexity 1.7 cm dural based enhancing lesion, likelymeningioma. Mild mass effect on the underlying left frontal lobe withoutedema. 3. Complete opacification of the left sphenoid sinus. HEAD MRA: Normal MRA [place]. NECK MRA: Normal neck MRA. Jeimy Nolen MD IMG MRI ORDERABL ES Final Result * EKG 12 lead (06/30/2024 11:30 PM CDT) Systolic Blood Pressure mmHg RADIOLOGY RESULTS Diastolic Blood Pressure mmHg RADIOLOGY RESULTS Ventricular Rate 55 BPM RAD IOLOGY RESULTS Atrial Rate 55 BPM RADIOLOG Y RESULTS AR Interval 142 ms RADIOLOG Y RESULTS QRS Duration 64 ms RADIOLO GY RESULTS QT 432 ms RADIOLOGY RESULTS QTc 413 ms RADIOLOGY RESULTS P [place] 54 degrees RADIOLOGY RESULTS R AXIS 14 degrees RADIOLOGY RESULTS T [place] 61 degrees RADIOLOGY RESULTS Interpretation ECG Sinus bradycardia Nonspecific ST and T wave abnormality Abnormal ECG No previous ECGs available Confirmed by - EMERGENCY ROOM, PHYSICIAN ([id number]), editor in chief MICAH PÉREZ ([id number]) on 07/01/2024 7:08:04 AM RADIOLOGY RESULTS 06/30/2024 11:3 0 PM CDT 07/01/2024 7:08 AM CDT us Jeimy Nolen MD ECG ORDERABLES Edited Result - Final RADIOLOGY RESULTS * Extra Red Top Tube (06/30/2024 8:37 PM CDT) Hold Specimen [facility] 06/30/2024 9:46 PM CDT [facility] Blood STRUCTURE OF RIGHT UPPER LIMB / Unknown Venipuncture / Unknown 06/30/2024 8:37 PM CDT 06/30/2024 8:45 PM CDT us Jeimy Nolen MD LAB - BLOOD ORDE RABLES Final Result LABORATORY [facility] [address] Lab (1st floor, no room number) [place] [address], [facility] * Extra Blue Top Tube (06/30/2024 8:37 PM CDT) Hold Specimen [facility] 06/30/2024 9:46 PM CDT [facility] Blood STRUCTURE OF RIGHT UPPER LIMB / Unknown Venipuncture / Unknown 06/30/2024 8:37 PM CDT 06/30/2024 8:45 PM CDT us Jeimy Nolen MD LAB - BLOOD [place] Final Result [facility] [address] Lab (1st floor, no room number) [place] [address], [facility] * CBC with platelets and differential (06/30/2024 8:37 PM CDT) WBC Count 5.9 4.0 - 11.0 10e3/uL 06/30/2024 8:48 PM CDT [facility] RBC Count 4.74 3.80 - 5.20 10e6/uL 06/30/2024 8:48 PM CDT [facility] Hemoglobin 14.2 11.7 - 15.7 g/dL 06/30/2024 8:48 PM CDT [facility] Hematocrit 42.0 35.0 - 47.0 % 06/30/2024 8:48 PM CDT [facility] MCV 89 78 - 100 fL 06/30/2024 8:48 PM CDT [facility] MCH 30.0 26.5 - 33.0 pg 06/30/2024 8:48 PM CDT [facility] MCHC 33.8 31.5 - 36.5 g/dL 06/30/2024 8:48 PM CDT [facility] RDW 12.6 10.0 - 15.0 % 06/30/2024 8:48 PM CDT [facility] Platelet Count 186 150 - 450 10e3/uL 06/30/2024 8:48 PM CDT [facility] % Neutrophils 42 % 06/30/2024 8:48 PM CDT [facility] % Lymphocytes 45 % 06/30/2024 8:48 PM CDT [facility] % Monocytes 11 % 06/30/2024 8:48 PM CDT [facility] % Eosinophils 2 % 06/30/2024 8:48 PM CDT [facility] % Basophils 1 % 06/30/2024 8:48 PM CDT [facility] % Immature Granulocytes 0 % 06/30/2024 8:48 PM CDT [facility] NRBCs per 100 WBC 0 <1 /100 025 8:48 PM CDT [facility] Absolute Neutrophils 2.5 1.6 - 8.3 10e3/uL 06/30/2024 8:48 PM CDT [facility] Absolute Lymphocytes 2.6 0.8 - 5.3 10e3/uL 06/30/2024 8:48 PM CDT [facility] Absolute Monocytes 0.6 0.0 - 1.3 10e3/uL 06/30/2024 8:48 PM CDT [facility] Absolute Eosinophils 0.1 0.0 - 0.7 10e3/uL 06/30/2024 8:48 PM CDT [facility] Absolute Basophils 0.0 0.0 - 0.2 10e3/uL 06/30/2024 8:48 PM CDT [facility] Absolute Immature Granulocytes 0.0 <=0.4 10e3/uL 06/30/2024 8:48 PM CDT [facility] Absolute NRBCs 0.0 10e3/uL 06/30/2024 8:48 PM CDT [facility] Blood STRUCTURE OF RIGHT UPPER LIMB / Unknown Venipuncture / Unknown 06/30/2024 8:37 PM CDT 06/30/2024 8:45 PM CDT Jeimy Nolen MD LAB - BLOOD ORDE TASHI Final Result LABORATORY [facility] [address] [facility] Lab (1st floor, no room number) [place] [address] * Basic metabolic panel (BMP) (06/30/2024 8:37 PM CDT) Sodium 140 135 - 145 mmol/L 06/30/2024 9:13 PM CDT LABORATORY Potassium 4.5 3.4 - 5.3 mmol/L 06/30/2024 9:13 PM CDT LABORATORY Chloride 105 98 - 107 mmol/L 06/30/2024 9:13 PM CDT LABORATORY Carbon Dioxide (CO2) 26 22 - 29 mmol/L 06/30/2024 9:13 PM CDT LABORATORY Anion Gap 9 7 - 15 mmol/L 06/30/2024 9:13 PM CDT LABORATORY Urea Nitrogen 16.1 8.0 - 23.0 mg/dL 06/30/2024 9:13 PM CDT LABORATORY Creatinine 0.74 0.51 - 0.95 mg/dL 06/30/2024 9:13 PM CDT [facility] GFR Estimate 88 >60 mL/min/1.7 3m2 06/30/2024 9:13 PM CDT [facility] Comment:eGFR calculated 2020 CKD-EPI equation. Calcium 10.0 8.8 - 10.4 mg/dL 06/30/2024 9:13 PM CDT [facility] Glucose 89 70 - 99 mg/dL 06/30/2024 9:13 PM CDT [facility] Blood STRUCTURE OF RIGHT UPPER LIMB / Unknown Venipuncture / Unknown 06/30/2024 8:37 PM CDT 06/30/2024 8:45 PM CDT Jeimy Nolen MD LAB - BLOOD ORDE TASHI Final Result [facility] [address] Lab (1st floor, no room number) [place] [address], [facility] from Last 3 Months Insurance [facility] MEDICARE ADVANTAGE [facility] MEDICARE ADVANTAGE Care Teams Drafter Apprentice Relationship Specialty Start Date End Date [address] [address] PCP - General 06/30/24
--- OUTSIDE RECORDS SUMMARY | 2024-07-04 20:29 | XMS_ITS | Encounter Summary ---
Author Organization [place] Address [address] [place] [address] Care Team Providers Care Pitch Flaker Name Role Phone Clinic[facility] Primary Care Provider Reason for Visit * Reason Comments Eye Problem Encounter Details Date Type Department Care Team (Late st Contact Info) Description 06/30/2024 9:23 PM CDT - 07/01/2024 5:22 AM CDT Emergency [facility] Emergency Dept [address] [place] [address] Jeimy Nolen MD [facility] [address] [place], [place] [address] Vision changes; Meningioma (H) Discharge Disposition: Home or Self Care Social [...] Mass Index 25.4 06/30/2024 6:28 PM CDT documented in this encounter Discharge Instructions * Discharge Instructions* Jeimy Nolen MD - 07/01/2024 4:20 AM CDT Your MRI was reassuring today and did not show signs of stroke. Your meningioma is still present and I encourage you to follow-up with your regular neurology team regarding this. You need an eye exam as soon as possible. I recommend calling your eye doctor first thing this morning for an eye exam preferably today. If you have new vision changes or cannot get an eye exam done today Sunday I recommend presenting to the [facility] emergency department as that is where ophthalmology is available for ED consultations. documented in this encounter ED Notes * Jeimy Nolen MD - 06/30/2024 9:50 PM CDT Emergency Department Note History of Present Illness Chief Complaint Eye Problem HPI Heaven Yoder is a 68 year old female with a history of Parkinson's disease presents with for evaluation of eye problem. The patient reports that 3 days ago she was looking at her tax paperwork and notes having wavy vision and for the last 2 days over the weekend she was unable to read numbers. The visual disturbance lasts for about 5 minutes and her vision returns to normal thereafter. The patient states that she has had waving around the sides of her eyes of both eyes. She also has head pressure towards the back of her head that subsides on its own as well as neck pain. She denies headache, vision change, history of glaucoma, visual disturbance, vision loss, chest pain, or sh ortness of breath. The patient has not had trouble walking or with her speech. She adds that she wears reading glasses. Her vision is alright on ED presentation. Independent Historian None Review of External Notes Past Medical History Medical History and Problem List Bradycardia Respiratory failure Acute Respiratory Distress Syndrome Parkinson's disease with dyskinesia, with fluctuations Intraductal papilloma left breast Symptomatic menopausal state Routine general medical examination at a healthcare facility Sinus bradycardia Hepatitis Osteoporosis Skin cancer Glaucoma Stone kidney Medications Levothyroxine West[place] One Carbidopa-levodopa Ursodiol Surgical History Breast lumpectomy Excision submandibular gland Monitoring facial nerve Exploration parapharyngeal space, right Fixation intermaxillary, right Neck - meningioma mass Physical Exam Patient Vitals for the past 24 hrs: BP Temp Pulse Resp SpO2 Height Weight 06/30/24 1828 137/77 97 ??F (36.1 ??C) 51 18 100 % 1.575 m (5' 2) 63 kg (138 lb 14.2 oz) Physical Exam Gen: alert CV: RRR, Pulm: breath sounds equal, lungs clear Abd: Soft, nontender Back: no evidence of injury, no cva tenderness MSK: no deformity, moves all extremities Skin: no rash Neuro: alert, appropriate conversation and interaction Neuro: alert, appropriate conversation and interaction, speech fluent, PERRL, EOMI, CN 2-7 and 9-12intact, 5/5 grasp BUE, 5/5 elbow flexion and extension BUE, 5/5 shoulder abduction BUE, 5/5 hip flexion, knee flexion, knee extension, plantar and dorsiflexion BLE, no pronator drift, normal gait, negative romberg, no dysdiadochokinesia, normal pkxhty-kqtw-rfqhpy testing IOP right eye 20 IOP left eye 14 Diagnostics Lab Results Labs Ordered and Resulted from Time of ED Arrival to Time of ED Departure BASIC METABOLIC PANEL - Normal Result Value Sodium 140 Potassium 4.5 Chloride 105 Carbon Dioxide (CO2) 26 Anion Gap 9 Urea Nitrogen 16.1 Creatinine 0.74 GFR Estimate 88 Calcium 10.0 Glucose 89 CBC WITH PLATELETS AND DIFFERENTIAL WBC Count 5.9 RBC Count 4.74 Hemoglobin 14.2 Hematocrit 42.0 MCV 89 MCH 30.0 MCHC 33.8 RDW 12.6 Platelet Count 186 % Neutrophils 42 % Lymphocytes 45 % Monocytes 11 % Eosinophils 2 % Basophils 1 % Immature Granulocytes 0 NRBCs per 100 WBC 0 Absolute Neutrophils 2.5 Absolute Lymphocytes 2.6 Absolute Monocytes 0.6 Absolute Eosinophils 0.1 Absolute Basophils 0.0 Absolute Immature Granulocytes 0.0 Absolute NRBCs 0.0 Imaging MR Brain w/o & w Contrast (Results Pending) MRA Neck (Carotids) wo & w Contrast (Results Pending) MRA Brain ([place]) wo & w Contrast (Results Pending) EKG ECG taken at 2330, ECG read at [address] and T wave abnormality Abnormal ECG Rate 55 bpm. TN interval 142 ms. QRS duration 64 ms. QT/QTc 432/413 ms. P-R-T axes 54 14 61. Independent Interpret ED Course Medications Administered Medications - No data to display Procedures Procedures Discussion of Management Neurology- stroke neuro Dr. Dangelo ED Course ED Course as of 06/30/24 2340 SunJun 30, 2024 2321 I have rechecked the patient and discussed care plan. Medical Decision Making / Diagnosis JORGE Yoder is a 68 year old female presents for intermittent vision changes detailed in HPI. No vision changes at time of my assessment. Intraocular pressure within normal limits. No eye pain redness or drainage to suggest eye infection orbital cellulitis or glaucoma. Intraocular pressure normal on bedside testing. MRI/MRA of the head and neck was negative for intracranial hemorrhage, CVA, dissection, arterial occlusion or stenosis. Is feeling sinus change noted. Patient does not have any vertex headache sinus symptoms fever or other signs of sinusitis and therefore did not feel thiswas clinically relevant at this time. Discussed with the patient in detail the need for full ophthalmology exam within 24 hours of ED visit. Recommended call her primary eye doctor first thing in the morning of explained her symptoms and need for urgent eye exam. If unable to get eye exam within 24hours, recommend to present to [facility] ED for further assessment. Represent sooner if any new vision changes. Remainder of full neurologic exam was normal. Discussed with stroke neurology who did not recommend further stroke workup at this time. Meningioma noted. This is known for the patient and largely unchanged in size and description she will follow with neurology for this. Discharged home Disposition The patient was discharged. Diagnosis ICD-10-CM 1. Vision changes H53.9 2. Meningioma (H) D32.9 Discharge Medications: no new Rx New Prescriptions No medications on file Scribe Disclosure: Mary Jane Ayala, am serving as a scribe at 9:58 PM on 06/30/2024 to document services personally performed by Jeimy Nolen MD based on my observations and the provider's statements to me. Jeimy Nolen MD 07/01/24 0438 * Shirley Dover RN - 06/30/2024 6:25 PM CDT Sunday pt had episode of blurred vision for about 5 minutes. On Sunday pt had a different episodewhere she saw black spots that last another 5 minutes. Sunday same thing happened again. No episodes today. Pt went to who sent her here. Upon entering the ED pt is having another episode of blurred vision and seeing black spots. Denies dizziness or lightheaded with these episodes. Denies pain. documented in this encounter Plan of Treatment Not on file documented as of this encounter Procedures Procedure Name Priority Date/Time Associated Diagnosis Comments MRA BRAIN ([place]) W/O CONTRAST STAT 07/01/2024 2:40 AM CDT MRA NECK (CAROTIDS) W/O & W CONTRAST STAT 07/01/2024 2:40 AM CDT MR BRAIN W/O & W CONTRAST STAT 07/01/2024 2:39 AM CDT EKG 12-LEAD, TRACING ONLY STAT 06/30/2024 11:30 PM CDT EXTRA TUBE STAT 06/30/2024 8:37 PM CDT EXTRA RED TOP TUBE STAT 06/30/2024 8: 37 PM CDT EXTRA BLUE TOP TUBE STAT 06/30/2024 8 :37 PM CDT CBC WITH PLATELETS AND DIFFERENTIAL STAT 06/30/2024 8:37 PM CDT CBC WITH PLATELETS & DIFFERENTIAL STAT 06/30/2024 8:37 PM CDT BASIC METABOLIC PANEL STAT 06/30/2024 8:37 PM CDT documented in this encounter Results * MRA Brain ([place]) wo Contrast (07/01/2024 2:40 AM [...] left sphenoid sinus. HEAD MRA: Normal MRA [place]. NECK MRA: Normal neck MRA. Narrative 07/01/2024 2:51 AM CDT EXAM: MR BRAIN W/O and W CONTRAST, MRA BRAIN ([place]) W/O CONTRAST, MRA NECK (CAROTIDS) W/O and W CONTRAST LOCATION: [facility] DATE: 07/01/2024 INDICATION: vision changes, hx of meningioma resection COMPARISON: None. CONTRAST: 10 mL Gadavist TECHNIQUE: 1) Routine multiplanar multisequence head MRI without and with intravenous contrast. 2) 3D naen-ku-ntkdax head MRA without intravenous contrast. 3) Neck [...] aneurysm, or high flow vascular malformation. Standard [place] anatomy. POSTERIOR CIRCULATION: No stenosis/occlusion, [...] BRAIN W/O and W CONTRAST, MRA BRAIN ([place]) W/OCONTRAST, MRA NECK (CAROTIDS) W/O and W CONTRAST LOCATION: [facility] DATE: 07/01/2024 INDICATION: vision changes, hx of meningioma resection COMPARISON: None. CONTRAST: 10 mL Gadavist TECHNIQUE: 1) Routine multiplanar multisequence head MRI without and with intravenouscontrast. 2) 3D anhv-mz-rmfvij head MRA without intravenous contrast. 3) Neck [...] stenosis/occlusion, aneurysm, or high flowvascular malformation. Standard [place] anatomy. POSTERIOR CIRCULATION: No stenosis/occlusion, [...] left sphenoid sinus. HEAD MRA: Normal MRA [place]. NECK MRA: Normal neck MRA. [...] left sphenoid sinus. HEAD MRA: Normal MRA [place]. NECK MRA: Normal neck MRA. Narrative 07/01/2024 2:51 AM CDT EXAM: MR BRAIN W/O and W CONTRAST, MRA BRAIN ([place]) W/O CONTRAST, MRA NECK (CAROTIDS) W/O and W CONTRAST LOCATION: [facility] DATE: 07/01/2024 INDICATION: vision changes, hx of meningioma resection COMPARISON: None. CONTRAST: 10 mL Gadavist TECHNIQUE: 1) Routine multiplanar multisequence head MRI without and with intravenous contrast. 2) 3D yvkx-cx-nazhhd head MRA without intravenous contrast. 3) Neck [...] aneurysm, or high flow vascular malformation. Standard [place] anatomy. POSTERIOR CIRCULATION: No stenosis/occlusion, [...] BRAIN W/O and W CONTRAST, MRA BRAIN ([place]) W/OCONTRAST, MRA NECK (CAROTIDS) W/O and W CONTRAST LOCATION: [facility] DATE: 07/01/2024 INDICATION: vision changes, hx of meningioma resection COMPARISON: None. CONTRAST: 10 mL Gadavist TECHNIQUE: 1) Routine multiplanar multisequence head MRI without and with intravenouscontrast. 2) 3D scvj-su-zibmnv head MRA without intravenous contrast. 3) Neck [...] stenosis/occlusion, aneurysm, or high flowvascular malformation. Standard [place] anatomy. POSTERIOR CIRCULATION: No stenosis/occlusion, [...] left sphenoid sinus. HEAD MRA: Normal MRA [place]. NECK MRA: Normal neck MRA. us Jeimy Nolen MD IMG MRI ORDERABL ES [...] left sphenoid sinus. HEAD MRA: Normal MRA [place]. NECK MRA: Normal neck MRA. Narrative 07/01/2024 2:51 AM CDT EXAM: MR BRAIN W/O and W CONTRAST, MRA BRAIN ([place]) W/O CONTRAST, MRA NECK (CAROTIDS) W/O and W CONTRAST LOCATION: [facility] DATE: 07/01/2024 INDICATION: vision changes, hx of meningioma resection COMPARISON: None. CONTRAST: 10 mL Gadavist TECHNIQUE: 1) Routine multiplanar multisequence head MRI without and with intravenous contrast. 2) 3D grao-ex-vlefhm head MRA without intravenous contrast. 3) Neck [...] aneurysm, or high flow vascular malformation. Standard [place] anatomy. POSTERIOR CIRCULATION: No stenosis/occlusion, [...] BRAIN W/O and W CONTRAST, MRA BRAIN ([place]) W/OCONTRAST, MRA NECK (CAROTIDS) W/O and W CONTRAST LOCATION: [facility] DATE: 07/01/2024 INDICATION: vision changes, hx of meningioma resection COMPARISON: None. CONTRAST: 10 mL Gadavist TECHNIQUE: 1) Routine multiplanar multisequence head MRI without and with intravenouscontrast. 2) 3D wvrq-mv-eaiaja head MRA without intravenous contrast. 3) Neck [...] stenosis/occlusion, aneurysm, or high flowvascular malformation. Standard [place] anatomy. POSTERIOR CIRCULATION: No stenosis/occlusion, [...] left sphenoid sinus. HEAD MRA: Normal MRA [place]. NECK MRA: Normal neck MRA. us Jeimy Nolen MD IMG MRI ORDERABL ES Final Result * EKG 12 lead (06/30/2024 11:30 PM CDT) Systolic Blood Pressure mmHg RADIOLOGY RESULTS Diastolic Blood Pressure mmHg RADIOLOGY RESULTS Ventricular Rate 55 BPM RAD IOLOGY RESULTS Atrial Rate 55 BPM RADIOLOG Y RESULTS TN Interval 142 ms RADIOLOG Y RESULTS QRS Duration 64 ms RADIOLO GY RESULTS QT 432 ms RADIOLOGY RESULTS QTc 413 ms RADIOLOGY RESULTS P [place] 54 degrees RADIOLOGY RESULTS R AXIS 14 degrees RADIOLOGY RESULTS T [place] 61 degrees RADIOLOGY RESULTS Interpretation ECG Sinus bradycardia Nonspecific ST and T wave abnormality Abnormal ECG No previous ECGs available Confirmed by - EMERGENCY ROOM, PHYSICIAN ([id number]), offline editor MICAH PÉREZ ([id number]) on 07/01/2024 7:08:04 AM RADIOLOGY RESULTS 06/30/2024 11:3 0 PM CDT 07/01/2024 7:08 AM CDT us Jeimy Nolen MD ECG ORDERABLES Edited Result - Final RADIOLOGY RESULTS * CBC with platelets and differential (06/30/2024 [...] LAB - BLOOD ORDE TASHI Final Result [facility] Lab [address] Lab (1st floor, no room number) [place] [phone] [place] [address] * Extra Red Top Tube (06/30/2024 8:37 PM CDT) Hold Specimen [facility] 06/30/2024 9:46 PM CDT [facility] LABORATORY Blood STRUCTURE OF RIGHT UPPER LIMB / Unknown Venipuncture / Unknown 06/30/2024 8:37 PM CDT 06/30/2024 8:45 PM CDT us Jeimy Nolen MD LAB - BLOOD ORDE RABKATE Final Result [facility] [address] Lab (1st floor, no room number) [place] [phone] [place] [address] * Extra Blue Top Tube (06/30/2024 8:37 PM CDT) Hold Specimen [facility] 06/30/2024 9:46 PM CDT [facility] Blood STRUCTURE OF RIGHT UPPER LIMB / Unknown Venipuncture / Unknown 06/30/2024 8:37 PM CDT 06/30/2024 8:45 PM CDT Jeimy Nolen MD LAB - BLOOD MASON AKINS Final Result [facility] [address] Lab (1st floor, no room number) [place] [address] * Basic metabolic panel (BMP) (06/30/2024 8:37 PM CDT) [facility] Sodium 140 135 - 145 mmol/L 06/30/2024 [...] - 0.95 mg/dL 06/30/2024 9:13 PM CDT LABORATORY GFR Estimate 88 >60 mL/min/1.7 3m2 06/30/2024 9:13 PM CDT LABORATORY Comment:eGFR calculated us2020 CKD-EPI equation. Calcium 10.0 8.8 - 10.4 mg/dL 06/30/2024 9:13 PM CDT LABORATORY Glucose 89 70 - 99 mg/dL 06/30/2024 9:13 PM CDT LABORATORY Blood STRUCTURE OF RIGHT UPPER LIMB / Unknown Venipuncture / Unknown 06/30/2024 8:37 PM CDT 06/30/2024 8:45 PM CDT Jeimy Nolen MD LAB - BLOOD ORDZacarias AKINS Final Result [facility] Lab [address] [facility] Lab (1st floor, no room number) [place] [address], [facility] documented in this encounter Visit Diagnoses Diagnosis Vision changes Unspecified visual disturbance Meningioma (H) Benign neoplasm of cerebral meninges documented in this encounter Administered Medications Inactive Administered Medications - up to 3 most recent administrations Medication Order MAR Action Action Date Dose Rate Site gadobutrol (GADAVIST) injection 10 mL 10 mL, Intravenous, ONCE, On Sun07/01/24 at 0145, For 1 dose $Given 07/01/2024 2:08 AM CDT 10 mLs sodium chloride (PF) 0.9% PF flush 60 mL 60 mL, Intravenous, ONCE, On Sun07/01/24 at 0145, For 1 dose $Given 07/01/2024 2:08 AM CDT 100 mLs documented in this encounter Active and Recently Administered Medications Times are shown in CDT. Scheduled Medication Order 06/29/2024 06/30/2024 07/01/2024 gadobutrol (GADAVIST) injection 10 mL (COMPLETED) 10 mL, Intravenous, ONCE, On Sun07/01/24 at 0145, For 1 dose 0208 ($Given - Provi bia: [address]) sodium chloride (PF) 0.9% PF flush 60 mL (COMPLETED) 60 mL, Intravenous, ONCE, On Sun07/01/24 at 0145, For 1 dose 0208 ($Given - Provi bia: [address]) tetracaine (PONTOCAINE) 0.5 % ophthalmic solution 2 drop 2 drop, Both Eyes, ONCE, On Sun07/01/24 at 0345, For 1 dose 0345 (Canceled Entry - Provider: Orders Generic Provider - Comment: Automatically canceled at discontinue of medication order) documented in this encounter Care Teams Pitch Flaker Relationship Specialty Start Date End Date [facility], [address] [address] PCP - General 06/30/24 documented as of this encounter
--- OUTSIDE RECORDS SUMMARY | 2024-07-04 20:30 | XMS_ITS | Encounter Summary ---
Author Organization [facility] Address [address] [place] [address] Care Team Providers Care Retail Advisor Name Role Phone Elsewhere, Pcp Primary Care Provider Unavailabl e Reason for Visit * Reason Comments Med Refill Encounter Details Date Type Department Care Team ([facility] st Contact Info) Description 06/26/2024 Refill Division of Gastroenterology in [place], [place] [address] [place] [phone] Buddy Ceja M.D. [address] [place] [phone] Med Refill Social History Tobacco Use Types Packs/Day Years Used Date Smoking Tobacco: Never Passive Smoke Exposure: Past Smokeless Tobacco: Never Passive Exposure Comments:Ch ildhood exposure. Alcohol Use Standard Drinks/Week Comments Not Currently 0 (1 standard drink = 0.6 oz pur e alcohol) [facility] Utilities Answer Date Recorded In the past 12 months has [facility] [employer] gas, oil, or water [employer] threatened to shut off services in your [...] often do you attend chur ch or buddhism services? More than 4 times per year 04/04/2022 Do you belong to any clubs o r organizations such as buddhist groups, unions, fraternal or athletic groups, or [...] at all 08/26/2022 [facility] - Occupational Stress Questionnaire Answer Date [...] living situation today? I have a [facility] place to live 07/20/2023 Education Answer Date Recorded What is the highest level of school you have completed or the highest degree you have received? Bachelor's degree (e.g., BA, AB, BS) 01/13/2019 Comments No Sex and Gender Information Value Date Recorded Sex Assigned at Female 01/10/2019 8:43 PM CDT Legal Sex Female 8:17 PM GERMAN [employer] Gender Identity Female 01/10/2019 8:43 PM CDT Sexual Orientation Not on file Occupation Industry Job Start Date Job End Date retired senior accountant Not on file Not on file Not on fi le documented as of this encounter Plan of Treatment Upcoming Encounters Date Type Department Care Team (Late st Contact Info) Description 08/07/2024 10:00 AM CDT Telemedicine Department of Neurology in [place], [place] 200 [place] [address] Riri Harding M.D., Ph.D. 200 [place] [address] documented as of this encounter Visit Diagnoses Diagnosis Cholestasis Intrahepatic (HCC) documented in this encounter Care Teams Retail Advisor Relationship Specialty Start Date End Date Elsewhere, Pcp PCP - General Internal Medicine 12/28/22 documented as of this encounter
--- OUTSIDE RECORDS SUMMARY | 2024-07-04 20:30 | XMS_ITS | Clinical Summary ---
Author Organization [facility] Address [address] [place] [address] Care Team Providers Care Sales Stock Associate Name Role Phone Elsewhere, Pcp Primary Care Provider Unavailabl e Source Comments Patient records contain information from all sites at [facility]. For routine questions regarding patient records, call [phone] during business hours, M-F 8:00 AM - 5:00 PM Central Time. Record requests for emergency care only can be directed to [phone] at any time.[facility] Allergies No known active allergies Medications * This document contains information received from the source organization and may not represent a complete record from that organization. acetaminophen (TYLENOL) 500 mg tablet Take 500-1,000 mg by mouth every 6 (six) hours as needed for pain. 08/20/19 15 Active levothyroxine (SYNTHROID, LEVOTHROID) 75 mcg tablet Take 1 tablet by mouth every morning. 08/20/19 15 Active melatonin 10 mg tablet Take 10 mg by mouth at bedtime as needed. Active polyethylene glycol (Miralax) 17 gram/dose oral powder Take 17 g by mouth as needed. 04/02/19 24 Active carbidopa-levod opa (SINEMET) 25-100 mg per tablet Take 1 tablet by mouth 3 (three) times a day. 270 tablet 3 08/09/19 24 2024 Active Additional Information Patient taking differently: 1.5 tabletoral 3 times daily, Reported on 06/24/2024 multivitamin (DAILY VITAMIN ORAL) Take 1 tablet by mouth daily. 04/02/19 24 Active folic acid-vitamin B6,B12 (Folbee) 2.5-25-1 mg per tablet To prevent homocysteine. Take one tab daily 90 tablet 3 01/21/20 24 Active ursodioL (ActigalL) 300 mg capsuleIndicati ons:Cholestasis Intrahepatic (HCC) Take 1 capsule (300 mg total) by mouth 3 (three) times a day. 270 capsule 3 07/03/19 25 Active psyllium husk (METAMUCIL ORAL) Take 1 Dose by mouth daily. Mix 1 tsp of powder with water daily. 2024 Discontinued(T herapy completed) GaviLyte-G 236-22.74-6.74 -5.86 gram solution 4pm day prior to procedure. Drink 8oz glass every 15 minutes until 1/2 of solution is gone. 6 hours prior to procedure drink 8 oz glass every 15 minutes until remaining solution gone.* 09/25/19 24 2024 Discontinued(T herapy completed) ursodioL (ActigalL) 300 mg capsuleIndicati ons:Cholestasis Intrahepatic (HCC) Take 1 capsule (300 mg total) by mouth every 4 (four) hours PM. 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 Med Refill 06/26/2024 Refill Division of Gastroenterology in [place], [place] [address] [place] [address] Buddy Ceja M.D. Med Refill 06/25/2024 3:00 PM CDT Telemedicine Department of Neurology in [place], [place] [address] [place] [address] Riri Harding M.D., Ph.D. Parkinsonism Unspecified (HCC) (Primary Dx) 06/24/2024 3:30 PM CDT Clinical Communication Virtual Review in [place], [place] [address] [place] [address] Pre-visit Intake from Last 3 Months Family History Medical History Relation Name Comments Alcohol abuse Father julito coleman Stroke Father julito coleman Uterine cancer Mother 1 Hypertension Mother 2 lópez jared Other cancer Mother 2 lópez jared Uterine cancer Mother 2 lópez jared Melanoma Sister 1 Melanoma Sister 2 PARISH CHAU Relation Name Status Comments Father julito coleman Alive Mother 1 Mother 2 lópezmandeep coleman Alive Sister 1 Sister 2 PARISH CHAU Alive Social History Tobacco Use Types Packs/Day Years Used Date Smoking Tobacco: Never Passive Smoke Exposure: Past Smokeless Tobacco: Never Tobacco Cessation:Counseling Given: Not Answered Passive Exposure Comments:Childhood exposure. Alcohol Use Standard Drinks/Week Comments Not Currently 0 (1 standard drink = 0.6 oz pur e alcohol) [facility] [employer] Answer Date Recorded In the past 12 months has e [employer], gas, oil, or water [employer] threatened to shut off services in your [...] often do you attend chur ch or synagogue services? 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 Not on file Not on fi le Last Filed Vital Signs Vital Sign Reading Time Taken Comments Blood Pressure 127/80 09/27/2023 2:51 PM CDT Pulse 53 09/27/2023 2:51 PM CDT Temperature 35.8 C (96.5 F) 09/27/2023 2:51 PM CDT Respiratory Rate 16 12/28/2022 1:00 PM CDT Oxygen Saturation 97% 12/28/2022 1:00 PM CDT Inhaled Oxygen Concentration - - Weight 59.2 kg (130 lb 8.2 oz) 09/27/2023 2:51 P M CDT Height 161.4 cm (5' 3.54) 09/27/2023 2:51 PM CD T Body Mass Index 22.73 09/27/2023 2:51 PM CDT Plan of Treatment Upcoming Encounters Date Type Department Care Team (Late st Contact Info) Description 08/07/2024 10:00 AM CDT Telemedicine Department of Neurology in [place], [place] [address] [place] [address] Riri Harding M.D., Ph.D. [address] [place] [address] Health Maintenance Due Date Last Done Comments Bone Density Scan (Osteoporosis Screen) 1956 CT Colonography 1955 Cologuard 1955 FIT 1955 Thyroid Stimulating Hormone (TSH) test for thyroid function 08/20/2015 08/19/2014, 06/15/2014 RSV vaccine - (32-36 weeks) or 60+ years (1 - Risk 60-74 years 1-dose series) 2016 Mammogram 07/03/2017 07/03/2016 (Perf ormed elsewhere), 07/12/2015 (Performed elsewhere), 07/31/2013 (Performed elsewhere) Influenza Vaccine (#1) 2024 , 01/24/2022, 03/09/2021, Additional history exists Depression Screening (Annual PHQ-2) 04/02/2024 Fall Risk Screen (Annual) 04/02/2024 Colonoscopy 07/01/2024 07/01/2014 (Perf ormed elsewhere) Colorectal Cancer Screening 07/01/2024 COVID-19 Vaccine ( season) 2024 01/19/2024, 04/13/2023, 01/25/2022, Additional history exists Fasting Glucose for Diabetes Screening 07/01/2027 06/30/2024, 09/27/2023, 01/24/2023, Additional history exists DTaP,Tdap,and Td Vaccines (3 - Td or Tdap) 11/15/2030 11/15/2020, 07/04/2010, 05/27/2007 Hepatitis A Vaccines Completed 04/09/2009, 11/03/2008, 09/10/2008 Hepatitis B Vaccines Completed 04/09/2009, 11/03/2008, 09/10/2008 Hepatitis B Screening Discontinued 06/15/2014 Zoster Vaccines Completed 09/13/2019, 05/04, 10/17/2016 Cervical/Vaginal Cancer Screening Discontinued 11/15/2020, 07/03/2016 (Performed elsewhere), 10/21/2015, Additional history exists Pneumococcal vaccine (50+ years) Completed 10/19/2022, 09/12/2021 IPV Vaccines Aged Out No longer eligi ble based on patient's age to complete this topic Medical Devices Explanted Type Area Dairy Tester Device Identifier Shelf Expiration Date Model / Serial / Lot Clp Jul Lgs Loree 9.0 - [id number] Explanted:Qty : 1 on 12/28/2022 at [facility] Hardware e.g. pins/screws/ rods Ethicon [id number] 09/30/2027 MCS20 / / [id number] Clp Jul Lgc Loree [facility] 9.75 - [id number] Explanted:Qty : 1 on 12/28/2022 at [facility] Hardware e.g. pins/screws/ rods Ethicon [id number] / / Procedures Procedure Name Priority Date/Time Associated Diagnosis Comments COMPREHENSIVE METABOLIC PANEL, S/P Routine 09/27/2023 8:54 AM CDT Gammopathy Monoclonal Nonspecific THYROID FUNCTION CASCADE, S Routine 08/19/2014 9:05 AM CDT HEPATITIS B SURFACE ANTIGEN Routine 06/15/2014 10:28 AM CDT from Last 3 Months or Most Recently Relevant to Health Maintenance Results * Thyroid Function [place] (08/19/2014 9:05 AM CDT) TSH, Sensitive 0.5 0.3 - 4.2 MIU/L [facility] 08/19/2014 9:05 AM CDT 08/19/2014 9:05 AM CDT us Jori Harley LAB BLOOD ADD-ON Final Result [facility] [address] [place], [place] [address] * Hepatitis B Surface Antigen (06/15/2014 10:28 AM CDT) HBs Antigen, S Negative Negative [facility] 06/15/2014 10:2 8 AM CDT 06/15/2014 10:28 AM CDT Jori Harley LAB MICROBIOLOGY - BLOOD ORDER GILLIAN Final Result [facility] [address] [place] [address], [facility] from Last 3 Months or Most Recently Relevant to Health Maintenance Insurance [facility] Care Teams Sales Stock Associate Relationship Specialty Start Date End Date Elsewhere, Pcp PCP - General Internal Medicine 12/28/22
--- OUTSIDE RECORDS SUMMARY | 2024-07-04 20:30 | XMS_ITS | Clinical Summary ---
Author Organization [facility] Address [address] [place] [address] Care Team Providers Care Laboratory Engineer Name Role Phone Savannah Schafer RN, BSN Unavailable [phone] Mayela Smith MD Primary Care Provider [phone] Allergies No known active allergies Medications MULTIVITAMIN TAB take 1 tablet by oral route once daily with food 0 7 Active levothyroxine (SYNTHROID) 75 mcg tabletIndications:U nspecified hypothyroidism Take 1 tablet by mouth once daily. Best if taken on empty stomach. 90 tablet 3 2 Active WesTab One 2.5-25-1 mg tab Take 1 Tablet by mouth once daily. Active carbidopa-levodopa, as half 25-100 mg, (SINEMET) 12.5-50 mg Take 1 half tablet by mouth three times daily. 3 Active Magnesium 200 mg tab Take 1 Tablet (200 mg) by mouth once daily. 4 Active Active Problems Problem Noted Date Diagnosed Date Hepatitis 02/07/2014 Respiratory failure 02/07/2014 Advanced care planning/counseling discussion 10/2013 ARDS (adult respiratory distress syndrome) 02/07 Fever 02/07/2014 Sinus bradycardia 07/04/2010 Overview (07/04/2010): Unremarkable EKG 2006, normal stress echocardiogram in 2004 Hemangioma of skin and subcutaneous tissue 06/28 Unspecified hypothyroidism 06/18/2009 Routine general medical exam ination at a health care facility 06/09/2008 Overview (08/16/2011): Colonoscopy normal 2007, recheck 10 years Normal dexa 2004, osteopenia -0.1 at one level. 2007. Recheck 2012 maybe intraductal papilloma left breast 05/27/2007 Overview (05/27/2007): biopsy 10/2006 Symptomatic menopausal or female climacteric sta marcos 05/27/2007 Overview (05/27/2007): age 48 Immunizations Immunization Administration Dates Next Due HepA-HepB (Twinrix) 04/09/2009,11/03/2008,2008 Td (Age >=7 Years) 07/09/1997 Td, Preservative Free (age >= 7 Years) 8 Tdap 07/04/2010 Family History Medical History Relation Name Comments Other Daughter 1 SVT Other Daughter 2 Fibromyalgia Other Father brain aneursym, strokes in early 50s, age 67. Significant EtOH consumption Heart Disease Mother age 77. H ad prior [place]. Hyperlipidemia Mother Hypertension Mother Other Mother uterine cancer Cancer-colon Paternal Grandfather Good Health Sister 1 Good Health Sister 2 Good Health Sister 3 Good Health Sister 4 Cancer-breast No Family History Relation Name Status Comments Daughter 1 Daughter 2 Father (Age 67) aneurysm, cerebral Mother (Age 77) [place] Paternal Grandfather Sister 1 Sister 2 Sister 3 Sister 4 Social History Tobacco Use Types Packs/Day Years Used Date Smoking Tobacco: Never Smokeless Tobacco: Never Tobacco Cessation:Counseling Given: Yes Alcohol Use Standard Drinks/Week Comments No 3.3 (1 standard drin k = 0.6 oz pure alcohol) social drinker 1 drink per week. 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 Not on file Not on file Obstetrics History Para Term AB IAB SAB Ectopic Multiple Livin g Live Births 2 2 2 Date Outcome GA Total Labor Labor/2nd/3rd Weight Sex Type Anes PTL Sydnee A1 A5 Name Clin Para Para Last Filed Vital Signs Vital Sign Reading Time Taken Comments Blood Pressure 116/71 12/25/2023 3:04 PM CDT tow er Pulse 51 12/25/2023 3:04 PM CDT Temperature 36.7 C (98.1 F) 03/06/2014 1:17 PM SUPERVISOR PAYROLL Respiratory Rate 20 03/02/2014 9:39 AM SUPERVISOR PAYROLL Oxygen Saturation 97% 12/25/2023 3:04 PM CDT Inhaled Oxygen Concentration - - Weight 61.7 kg (136 lb) 12/25/2023 3:04 PM CDT Height 158.8 cm (5' 2.52) 03/02/2014 9:39 AM CS T Body Mass Index 24.46 03/02/2014 9:39 AM SUPERVISOR PAYROLL Plan of Treatment Health Maintenance Due Date Last Done Comments Depression screening for age 12+ 1968 BMI (ht and wt on same day) for age 18+ 1974 Pneumococcal series for age 50+ (1 of 2 - PCV) 07/08/1975 Zoster (shingles) series for age 50+ (1 of 2) 2006 Mammogram for age 45-75 08/15/2012 08/16/19 12, 08/16/2011, 07/04/2010, Additional history exists Lipids for age 45-75 06/15/2013 06/15/2008 Colonoscopy through age 75 04/03/2017 04/03/2007 Tetanus booster 07/04/2020 07/04/2010, 05/04, 07/09/1997 DEXA/DXA scan for age 65+ 2021 06/04/2007 Medicare Wellness for age 65+ 2021 COVID-19 vaccine series ( season) 2023 04/13/2023, 01/25/2022, 03/09/2021, Additional history exists Influenza Vaccine (Season Ended) 2024 RSV vaccine for adults or (1 - 1-dose 75+ series) 07/08/2031 Tdap Completed 07/04/2010 Hepatitis C screening for ag e 18-79 Completed 02/09/2014 Procedures Procedure Name Priority Date/Time Associated Diagnosis Comments ANTI HCV Early AM 02/09/2014 4:30 AM SUPERVISOR PAYROLL XR MAMMO BILAT SCREEN FFDM (IA) Routine 08/16/2011 9:16 AM CDT Other screening mammogram LIPID PANEL Routine 06/15/2008 7:26 AM CDT Screening for Lipoid Disorders XR DXA BONE DENSITY 2 SITES AXIAL Routine 06/04/2007 8:47 AM SUPERVISOR PAYROLL Screening Osteoporosis from Last 3 Months or Most Recently Relevant to Health Maintenance Results * ANTI HCV (02/09/2014 4:30 AM SUPERVISOR PAYROLL) HEPATITIS C ANTIBODY Non-Reacti ve Non-Reacti ve 02/09/2014 5:40 AM SUPERVISOR PAYROLL [facility] Blood specimen (specimen) BLOOD SPECIMEN / Unknown Venipuncture / Unknown 02/09/2014 4:30 AM SUPERVISOR PAYROLL 02/09/2014 4:53 AM SUPERVISOR PAYROLL Narrative [facility] - 02/09/2014 5:40 AM SUPERVISOR PAYROLL Antibodies to HCV not detected; does not exclude the possibility of exposure to HCV. us Dilshad Jacome MD SEND OUTS Final Re sult [facility] [address] [place] [address], [place] * XR MAMMO BILAT SCREEN FFDM (08/16/2011 9:16 AM CDT) Anatomical Region Laterality Modality BREASTS, Breast Left, Breast Right Bilateral Mammography Impressions 08/16/2011 12:22 PM CDT There is no radiographic evidence for malignancy. Recommend annual mammograms. A lay language report of this examination will be provided to the patient. MAMMOGRAM ASSESSMENT: ACR 2 Benign Narrative 08/16/2011 12:22 PM CDT XR MAMMO BILAT SCREEN FFDM [G0202.0] CLINICAL HISTORY: This is an asymptomatic 56 y.o. patient. INDICATION FOR EXAM: Mammogram Screening. TECHNIQUE: CC & MLO views were obtained. This digital study was evaluated with the assistance of Computer-Aided Detection. COMPARISON FILMS: Yes 07/04/10 [facility] 06/28/09 [facility] FINDINGS: Mammographically, the breast tissue is heterogeneously dense, which could obscure detection of small masses (approximately 51% - 75% glandular). No suspicious masses or microcalcifications. Benign appearing calcifications within both breasts and Intramammary lymph node within left breast. Procedure Note EmmyDominic maloney Margarita, - 08/16/2011 XR MAMMO BILAT SCREEN FFDM [G0202.0] CLINICAL HISTORY: This is an asymptomatic 56 y.o. patient. INDICATION FOR EXAM: Mammogram Screening. TECHNIQUE: CC & MLO views were obtained. This digital study was evaluatedwith the assistance of Computer-Aided Detection. COMPARISON FILMS: Yes 07/04/10 [facility] 06/28/09 [facility] FINDINGS: Mammographically, the breast tissue is [...] ASSESSMENT: ACR 2 Benign Priya Menjivar MAMMO Final R esult * lipid panel (06/15/2008 7:26 AM CDT) CHOLESTEROL,TOTAL 150 110 - 199 mg/dL [facility] TRIGLYCERIDES 78 <150 mg/dL [facility] HDL CHOLESTEROL 49 >40 mg/dL [facility] CHOL/HDL RATIO 3.06 <4.51 [facility] LDL CHOLESTEROL 85 <131 mg/dL [facility] PATIENT STATUS Fasting [facility] Blood specimen (specimen) BLOOD SPECIMEN / Unknown 06/15/2008 7:26 AM CDT 06/15/2008 7:20 AM CDT Priya Menjivar CHEMISTRY Final R esult [facility] [address] [place] [address] * XR DEXA BONE DENSITY 2 SITES (06/04/2007 8:47 AM SUPERVISOR PAYROLL) Anatomical Region Laterality Modality Spine, HIPS, HIPL, HIPR Other 06/04/2007 8:47 AM SUPERVISOR PAYROLL Narrative 06/07/2007 1:15 PM SUPERVISOR PAYROLL Please see scanned document for results of this study. Procedure Note Priya Menjivar D - 06/07/2007 Please see scanned document for results of this study. Priya Menjivar DEXA Final R esult from Last 3 Months or Most Recently Relevant to Health Maintenance Insurance [employer] BLUE ONLY BLUE CROSS MEDICARE ADVANTAGE MR Advance Directives * Full Code (Latest Code Status on File) Date Activated Date Inactivated Comments 02/07/2014 2:44 PM 02/20/2014 6:50 PM Care Teams Laboratory Engineer Relationship Specialty Start Date End Date Mayela Smith MD [address] [place] [address] PCP - General Internal Medicine 12/25/23July, Savannah Hernandez RN, BSN [address] [address] Human Resources Technician Oncology 03/03/14
--- OUTSIDE RECORDS SUMMARY | 2024-07-04 20:30 | XMS_ITS | Encounter Summary ---
Author Organization [facility] Address [address] [place] [address] Care Team Providers Care Table Machine Operator Name Role Phone Elsewhere, Pcp Primary Care Provider Unavailabl e Reason for Referral * Outpatient (Routine) - Authorized Specialty Diagnoses / Procedures Referred By Magno isaac Referred To Contact Neurology Riri Harding M.D., Ph.D. [address] [place] [phone] Phone: tel: fax: [facility] Referral ID Status Reason Start Date Expiration Date V isits Requested Visits Authorized [id number] Authorized 06/25/2024 12/25/2025 1 1 Scheduling Instructions Schedule a telemedicine visit for 6 weeks from now. Reason for Visit * Appointment Request (Routine) - Closed Specialty Diagnoses / Procedures Referred By Magno t Referred To Contact Neurology Referral ID Status Reason Start Date Expiration Date Visits Re quested Visits Authorized [id number] Closed 06/19/2024 09/19/2025 1 1 Encounter Details Date Type Department Care Team (Late st Contact Info) Description 06/25/2024 3:00 PM CDT Telemedicine Department of Neurology in [place], [place] [address] [place] [phone] Riri Harding M.D., Ph.D. [address] [place] [phone] Parkinsonism Unspecified (HCC) (Primary Dx) Social History Tobacco Use Types Packs/Day Years Used Date Smoking Tobacco: Never Passive Smoke Exposure: Past Smokeless Tobacco: Never Passive Exposure Comments: ildhood exposure. Alcohol Use Standard Drinks/Week Comments Not Currently 0 (1 standard drink = 0.6 oz pur e alcohol) [facility] Utilities Answer Date Recorded In the past 12 months has e [employer], gas, oil, or water [employer] threatened to shut off services in your [...] week 04/04/2022 How often do you attend [facility] or restoration services? More than 4 times per year 04/04/2022 Do you belong to any clubs o r organizations such as synagogue groups, unions, fraternal or athletic groups, or [...] and heating? 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 - 06/25/2024 3:00 PM CDT Consult conducted via real-time audio/video technology by Riri Harding M.D., Ph.D. at the [facility] to the patient's home. Mrs. Yoder and I visited via telemedicine to discuss her Parkinson's disease in levodopa responses. For the last couple of years, she has done well and her responses to levodopa in a low dose were stable. She has been taking a single tablet 3 times a day. However, she recently developed a sensationof bobble headedness. Apparently, there were not visible movement of her head but she felt that feeling in her head and also began to experience tightness in her neck like it was very rigid. She tried going up from 1 tablet to 1.5 tablets each dose taking that again 3 times a day. That seemed to help her hand tremor & the bobble -headedness resolved. She has trouble getting to sleep at night and we discussed that. She takes her 3 carbidopa levodopadoses typically at 6 a.m., 3 p.m. and 10 p.m.. 10 p.m. is when she tries to get to sleep. To help with sleep, I advised her to move the 10 p.m. dose back to 9 p.m.. She has been taking the carbidopa levodopa on an empty stomach as advised. She isn't as good as she would like to be and I suspect that the initial carbidopa levodopa dose has come up short of meeting her needs. Thus, I advised her to go back to the carbidopa levodopa dosing scheme & every week raise the dose by a half tablet for all 3 doses. She will stay on the current dose of one and a half tablets for a week and then go up to 2, then 2.5 and finally 3 tablets each dose. We will visit again by telemedicine to discuss what dose to settle on. I ordered that return appointment by telemedicine.. I advised her to engage in regular aerobic exercise and she is so-inclined. documented in this encounter Plan of Treatment Upcoming Encounters Date Type Department Care Team (Late st Contact Info) Description 08/07/2024 10:00 AM CDT Telemedicine Department of Neurology in [place], [place] [address] [place] [phone] Riri Harding M.D., Ph.D. [address] [place] [phone] Scheduled Referrals Name Type Priority Associated Diagnoses Orde r Schedule Neurology office visit (clinic) Outpatient Referral Routine Expected: 08/07/2024, Expires: 09/25/2025 documented as of this encounter Visit Diagnoses Diagnosis Parkinsonism Unspecified (HCC)- Primary documented in this encounter Care Teams Table Machine Operator Relationship Specialty Start Date End Date Elsewhere, Pcp PCP - General Internal Medicine 12/28/22 documented as of this encounter
--- OUTSIDE RECORDS SUMMARY | 2024-07-04 20:30 | XMS_ITS | Encounter Summary ---
Author Organization [facility] Address [address] [place] [address] Care Team Providers Care Acid Crane Operator Name Role Phone Elsewhere, Pcp Primary Care Provider Unavailabl e Reason for Visit * Reason Onset Date Comments Pre-visit Intake 06/24/2024 * Appointment Request (Routine) - Authorized Specialty Diagnoses / Procedures Referred By Magno t Referred To Contact Neurology Referral ID Status Reason Start Date Expiration Date V isits Requested Visits Authorized [id number] Authorized 06/19/2024 09/19/2025 1 1 Encounter Details Date Type Department Care Team (Latest Contact Info) Description 06/24/2024 3:30 PM CDT Clinical Communication Virtual Review in [address] [phone] Pre-visit Intake Social History Tobacco Use Types Packs/Day Years Used Date Smoking Tobacco: Never Passive Smoke Exposure: Past Smokeless Tobacco: Never Tobacco Cessation:Counseling Given: Not Answered Passive Exposure Comments:Childhood exposure. Alcohol Use Standard Drinks/Week Comments Not Currently 0 (1 standard drink = 0.6 oz pur e alcohol) [facility] Utilities Answer Date Recorded In the past 12 months has e electric, gas, oil, or water [employer] threatened to shut off services in your [...] heating? Not hard at all 08/26/2022 [facility] Occupat ional Health - Occupational [...] your living situation today? I have a [facility] place to live 07/20/2023 Education Answer Date Recorded What is the highest level of school you have completed or the highest degree you have received? 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 200 [place] [address] documented as of this encounter Visit Diagnoses Not on filedocumented in this encounter Care Teams Acid Crane Operator Relationship Specialty Start Date End Date Elsewhere, Pcp PCP - General Internal Medicine 12/28/22 documented as of this encounter
--- OUTSIDE RECORDS SUMMARY | 2024-07-04 20:30 | XMS_ITS | Encounter Summary ---
Author Organization [facility] Address [address] [place] [address] Care Team Providers Care Recording Studio Intern Name Role Phone Elsewhere, Pcp Primary Care Provider Unavailabl e Reason for Visit * Reason Comments Med Refill Encounter Details Date Type Department Care Team (Late st Contact Info) Description 06/26/2024 Refill Department of Neurology in [place], [place] [address] [place] [phone] Riri Harding M.D., Ph.D. [address] [place] [phone] Med Refill Social History Tobacco Use Types Packs/Day Years Used Date Smoking Tobacco: Never Passive Smoke Exposure: Past Smokeless Tobacco: Never Passive Exposure Comments:Ch ildhood exposure. Alcohol Use Standard Drinks/Week Comments Not Currently 0 (1 standard drink = 0.6 oz pur e alcohol) [facility] Utilities Answer Date Recorded In the past 12 months has [employer], gas, oil, or water [employer] threatened to shut off services in your [...] often do you attend chur ch or jew services? More than 4 times [...] heating? Not hard at all 08/26/2022 [facility] of Occupat ional Health - Occupational [...] your living situation today? I have a [facility] place to live 07/20/2023 Education Answer Date Recorded What is the highest level of school you have completed or the highest degree you have received? 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 [address] [place] [address] documented as of this encounter Visit Diagnoses Not on filedocumented in this encounter Care Teams Recording Studio Intern Relationship Specialty Start Date End Date Elsewhere, Pcp PCP - General Internal Medicine 12/28/22 documented as of this encounter
[2024-07-04 20:33] VITALS: BP 178/98; PULSE 56; RESP 18; TEMP 36.7; O2SAT 98; BMI 25.1
--- OUTSIDE RECORDS SUMMARY | 2024-07-04 21:27 | XMS_ITS | Encounter Summary ---
Author Organization [facility] Address [address] [place] [address] Care Team Providers Care Gluing Machine Feeder Name Role Phone Elsewhere, Pcp Primary Care Provider Unavailabl e Reason for Visit * Reason Comments Med Refill Encounter Details Date Type Department Care Team ([facility] st Contact Info) Description 06/26/2024 Refill Division of Gastroenterology in [place], [place] [address] [place] [phone] Buddy Ceja M.D. [address] [place] [phone] Med Refill Social History Tobacco Use Types Packs/Day Years Used Date Smoking Tobacco: Never Passive Smoke Exposure: Past Smokeless Tobacco: Never Passive Exposure Comments:Ch ildhood exposure. Alcohol Use Standard Drinks/Week Comments Not Currently 0 (1 standard drink = 0.6 oz pur e alcohol) [facility] Utilities Answer Date Recorded In the past [address] [facility] [employer] gas, oil, or water [employer] threatened to shut off services in your [...] often do you attend chur ch or confucianism services? More than 4 times per year 04/04/2022 Do you belong to any clubs o r organizations such as alevism groups, unions, fraternal or athletic groups, or [...] and heating? Not hard at all 08/26/2022 [facility] of Occupat ionhi Health - Occupational Stress Questionnaire Answer Date [...] your living situation today? I have a [facility] place to live 07/20/2023 Education Answer Date Recorded What is the highest level of school you have completed or the highest degree you have received? 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 200 [place] [phone] documented as of this encounter Visit Diagnoses Diagnosis Cholestasis Intrahepatic (HCC) documented in this encounter Care Teams Gluing Machine Feeder Relationship Specialty Start Date End Date Elsewhere, Pcp PCP - General Internal Medicine 12/28/22 documented as of this encounter
--- OUTSIDE RECORDS SUMMARY | 2024-07-04 21:27 | XMS_ITS | Encounter Summary ---
Author Organization [facility] Address [address] [place] [address] Care Team Providers Care Receptionist/Telephone Operator Name Role Phone Elsewhere, Pcp Primary Care Provider Unavailabl e Reason for Visit * Reason Comments Med Refill Encounter Details Date Type Department Care Team (Late st Contact Info) Description 06/26/2024 Refill Department of Neurology in [place], [place] [address] [phone] Riri Harding M.D., Ph.D. [address] [place] [phone] Med Refill Social History Tobacco Use Types Packs/Day Years Used Date Smoking Tobacco: Never Passive Smoke Exposure: Past Smokeless Tobacco: Never Passive Exposure Comments:Ch ildhood exposure. Alcohol Use Standard Drinks/Week Comments Not Currently 0 (1 standard drink = 0.6 oz pur e alcohol) [facility] Utilities Answer Date Recorded In the past 12 months has [employer], gas, oil, or water [employer] threatened to shut off services in your [...] often do you attend chur ch or druze services? More than 4 times per year [...] and heating? Not hard at all 08/26/2022 [facility] of Occupat ional Health - Occupational [...] living situation today? I have a [facility] place to live 07/20/2023 Education Answer Date Recorded What is the highest level of school you have completed or the highest degree you have received? 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 [address] [place] [phone] documented as of this encounter Visit Diagnoses Not on filedocumented in this encounter Care Teams Receptionist/Telephone Operator Relationship Specialty Start Date End Date Elsewhere, Pcp PCP - General Internal Medicine 12/28/22 documented as of this encounter
--- OUTSIDE RECORDS SUMMARY | 2024-07-04 21:27 | XMS_ITS | Encounter Summary ---
Author Organization [facility] Address [address] [place] [address] Care Team Providers Care Road Grader Operator Name Role Phone [facility] Primary Care Provider Encounter Details Date Type [...] on filedocumented in this encounter Care Teams Road Grader Operator Relationship Specialty Start Date End Date [address] [address] PCP - General 06/30/24 documented as of this encounter
--- OUTSIDE RECORDS SUMMARY | 2024-07-04 21:27 | XMS_ITS | Clinical Summary ---
Author Organization [facility] Address [address] [place] [address] Care Team Providers Care Glass Vial Bending Conveyor Feeder Name Role Phone Clinic, [facility] Primary Care Provider Allergies No known active allergies Encounters Date Type Department Care Team Description 06/30/2024 9:23 PM CDT - 07/01/2024 5:22 AM CDT Emergency [facility] [address] [place] [phone] Jeimy Nolen MD Vision changes; Meningioma (H) [...] Priority Date/Time Associated Diagnosis Comments MRA BRAIN ([place]) W/O CONTRAST STAT 07/01/2024 2:40 [...] Last 3 Months Results * MRA Brain ([place]) wo Contrast (07/01/2024 2:40 AM [...] left sphenoid sinus. HEAD MRA: Normal MRA [place]. NECK MRA: Normal neck MRA. Narrative 07/01/2024 2:51 AM CDT EXAM: MR BRAIN W/O and W CONTRAST, MRA BRAIN ([place]) W/O CONTRAST, MRA NECK ([place]) W/O and W CONTRAST LOCATION: [facility] DATE: 07/01/2024 INDICATION: vision changes, hx of meningioma resection COMPARISON: None. CONTRAST: 10 mL [facility] TECHNIQUE: 1) Routine multiplanar multisequence head MRI without and with intravenous contrast. 2) 3D arxv-kn-ejekec head MRA without intravenous contrast. 3) Neck [...] aneurysm, or high flow vascular malformation. Standard [place] anatomy. POSTERIOR CIRCULATION: No stenosis/occlusion, [...] BRAIN W/O and W CONTRAST, MRA BRAIN ([place]) W/OCONTRAST, MRA NECK ([place]) W/O and W CONTRAST LOCATION: [facility] DATE: 07/01/2024 INDICATION: vision changes, hx of meningioma resection COMPARISON: None. CONTRAST: 10 mL [employer] TECHNIQUE: 1) Routine multiplanar multisequence head MRI without and with intravenouscontrast. 2) 3D zhpm-dy-lqtoyz head MRA without intravenous contrast. 3) Neck [...] stenosis/occlusion, aneurysm, or high flowvascular malformation. Standard [place] anatomy. POSTERIOR CIRCULATION: No stenosis/occlusion, [...] left sphenoid sinus. HEAD MRA: Normal MRA [place]. NECK MRA: Normal neck MRA. [...] left sphenoid sinus. HEAD MRA: Normal MRA [place]. NECK MRA: Normal neck MRA. Narrative 07/01/2024 2:51 AM CDT EXAM: MR BRAIN W/O and W CONTRAST, MRA BRAIN ([place]) W/O CONTRAST, MRA NECK ([place]) W/O and W CONTRAST LOCATION: [facility] DATE: 07/01/2024 INDICATION: vision changes, hx of meningioma resection COMPARISON: None. CONTRAST: 10 mL [employer] TECHNIQUE: 1) Routine multiplanar multisequence head MRI without and with intravenous contrast. 2) 3D kuze-ib-pfpqcm head MRA without intravenous contrast. 3) Neck [...] aneurysm, or high flow vascular malformation. Standard [place] anatomy. POSTERIOR CIRCULATION: No stenosis/occlusion, [...] BRAIN W/O and W CONTRAST, MRA BRAIN ([place]) W/OCONTRAST, MRA NECK ([place]) W/O and W CONTRAST LOCATION: [facility] DATE: 07/01/2024 INDICATION: vision changes, hx of meningioma resection COMPARISON: None. CONTRAST: 10 mL [employer] TECHNIQUE: 1) Routine multiplanar multisequence head MRI without and with intravenouscontrast. 2) 3D nwhx-mc-ybwpns head MRA without intravenous contrast. 3) Neck [...] stenosis/occlusion, aneurysm, or high flowvascular malformation. Standard [place] anatomy. POSTERIOR CIRCULATION: No stenosis/occlusion, [...] left sphenoid sinus. HEAD MRA: Normal MRA [place]. NECK MRA: Normal neck MRA. [...] left sphenoid sinus. HEAD MRA: Normal MRA [place]. NECK MRA: Normal neck MRA. Narrative 07/01/2024 2:51 AM CDT EXAM: MR BRAIN W/O and W CONTRAST, MRA BRAIN ([place]) W/O CONTRAST, MRA NECK ([place]) W/O and W CONTRAST LOCATION: [facility] DATE: 07/01/2024 INDICATION: vision changes, hx of meningioma resection COMPARISON: None. CONTRAST: 10 mL [employer] TECHNIQUE: 1) Routine multiplanar multisequence head MRI without and with intravenous contrast. 2) 3D zbig-xk-ajtxww head MRA without intravenous contrast. 3) Neck [...] aneurysm, or high flow vascular malformation. Standard [place] anatomy. POSTERIOR CIRCULATION: No stenosis/occlusion, [...] BRAIN W/O and W CONTRAST, MRA BRAIN ([place]) W/OCONTRAST, MRA NECK ([place]) W/O and W CONTRAST LOCATION: [facility] DATE: 07/01/2024 INDICATION: vision changes, hx of meningioma resection COMPARISON: None. CONTRAST: 10 mL [employer] TECHNIQUE: 1) Routine multiplanar multisequence head MRI without and with intravenouscontrast. 2) 3D rgbv-gy-hpdrgo head MRA without intravenous contrast. 3) Neck [...] stenosis/occlusion, aneurysm, or high flowvascular malformation. Standard [place] anatomy. POSTERIOR CIRCULATION: No stenosis/occlusion, [...] left sphenoid sinus. HEAD MRA: Normal MRA [place]. NECK MRA: Normal neck MRA. Jeimy Nolen MD IMG MRI ORDERABL ES Final Result * EKG 12 lead (06/30/2024 11:30 PM CDT) Systolic Blood Pressure mmHg RADIOLOGY RESULTS Diastolic Blood Pressure mmHg RADIOLOGY RESULTS Ventricular Rate 55 BPM RAD IOLOGY RESULTS Atrial Rate 55 BPM RADIOLOG Y RESULTS WA Interval 142 ms RADIOLOG Y RESULTS QRS Duration 64 ms RADIOLO GY RESULTS QT 432 ms RADIOLOGY RESULTS QTc 413 ms RADIOLOGY RESULTS P [place] 54 degrees RADIOLOGY RESULTS R AXIS 14 degrees RADIOLOGY RESULTS T [place] 61 degrees RADIOLOGY RESULTS Interpretation ECG Sinus bradycardia Nonspecific ST and T wave abnormality Abnormal ECG No previous ECGs available Confirmed by - EMERGENCY ROOM, PHYSICIAN ([id number]), legal editor MICAH PÉREZ ([id number]) on 07/01/2024 7:08:04 AM RADIOLOGY RESULTS 06/30/2024 11:3 0 PM CDT 07/01/2024 7:08 AM CDT us Jeimy Nolen MD ECG ORDERABLES Edited Result - Final RADIOLOGY RESULTS * Extra Red Top Tube (06/30/2024 8:37 PM CDT) Hold Specimen [facility] 06/30/2024 9:46 PM CDT [facility] LABORATORY Blood STRUCTURE OF RIGHT UPPER LIMB / Unknown Venipuncture / Unknown 06/30/2024 8:37 PM CDT 06/30/2024 8:45 PM CDT us Jeimy Nolen MD LAB - BLOOD ORDE RABLES Final Result LABORATORY [facility] [address] Lab (1st floor, no room number) [place] [address], [facility] * Extra Blue Top Tube (06/30/2024 8:37 PM CDT) Hold Specimen [facility] 06/30/2024 9:46 PM CDT [facility] LABORATORY Blood STRUCTURE OF RIGHT UPPER LIMB / Unknown Venipuncture / Unknown 06/30/2024 8:37 PM CDT 06/30/2024 8:45 PM CDT us Jeimy Nolen MD LAB - BLOOD [place] Final Result [facility] LABORATORY [facility] [address] Lab (1st floor, no room number) [place] [address], [facility] * CBC with platelets and differential (06/30/2024 [...] - BLOOD ORDE TASHI Final Result LABORATORY [facility] [address] [facility] Lab (1st floor, no room number) [place] [address] * Basic metabolic panel (BMP) (06/30/2024 8:37 [...] BLOOD ORDE TASHI Final Result [facility] LABORATORY [facility] [address] Lab (1st floor, no room number) [place] [address], [facility] from Last 3 Months Insurance [facility] MEDICARE ADVANTAGE [facility] MEDICARE ADVANTAGE Care Teams Glass Vial Bending Conveyor Feeder Relationship Specialty Start Date End Date [address] [address] PCP - General 06/30/24
--- OUTSIDE RECORDS SUMMARY | 2024-07-04 21:27 | XMS_ITS | Encounter Summary ---
Author Organization [facility] Address [address] [place] [address] Care Team Providers Care Dials Inspector Name Role Phone Clinic, [facility] Primary Care Provider Reason for Visit * Reason Comments Eye Problem Encounter Details Date Type Department Care Team (Late st Contact Info) Description 06/30/2024 9:23 PM CDT - 07/01/2024 5:22 AM CDT Emergency [facility] Emergency Dept [address] [place] [address] Jeimy Nolen MD [facility] [address] [place], [place] [address] Vision changes; Meningioma (H) Discharge Disposition: Home [...] today Sunday I recommend presenting to the [facility] emergency department as that is where ophthalmology [...] normal gait, negative romberg, no dysdiadochokinesia, normal lydvrt-llrt-bnupbf testing IOP right eye 20 IOP left [...] & w Contrast (Results Pending) MRA Brain ([facility]) wo & w Contrast (Results Pending) EKG ECG taken at 2330, ECG read at [address] and T wave abnormality Abnormal ECG Rate 55 bpm. UT interval 142 ms. QRS duration 64 ms. [...] exam within 24hours, recommend to present to [facility] ED for further assessment. Represent sooner if [...] Priority Date/Time Associated Diagnosis Comments MRA BRAIN ([place]) W/O CONTRAST STAT 07/01/2024 2:40 [...] in this encounter Results * MRA Brain ([facility]) wo Contrast (07/01/2024 2:40 AM [...] left sphenoid sinus. HEAD MRA: Normal MRA [facility]. NECK MRA: Normal neck MRA. Narrative 07/01/2024 2:51 AM CDT EXAM: MR BRAIN W/O and W CONTRAST, MRA BRAIN ([place]) W/O CONTRAST, MRA NECK (CAROT[place]) W/O and W CONTRAST LOCATION: [facility] DATE: 07/01/2024 INDICATION: vision changes, hx of meningioma resection COMPARISON: None. CONTRAST: 10 mL Gadavist TECHNIQUE: 1) Routine multiplanar multisequence head MRI without and with intravenous contrast. 2) 3D prta-mq-edwtic head MRA without intravenous contrast. 3) Neck [...] aneurysm, or high flow vascular malformation. Standard [place] anatomy. POSTERIOR CIRCULATION: No stenosis/occlusion, [...] BRAIN W/O and W CONTRAST, MRA BRAIN ([place]) W/OCONTRAST, MRA NECK ([facility]) W/O and W CONTRAST LOCATION: [facility] DATE: 07/01/2024 INDICATION: vision changes, hx of meningioma resection COMPARISON: None. CONTRAST: 10 mL Gadavist TECHNIQUE: 1) Routine multiplanar multisequence head MRI without and with intravenouscontrast. 2) 3D xlpu-ax-kimlww head MRA without intravenous contrast. 3) Neck [...] stenosis/occlusion, aneurysm, or high flowvascular malformation. Standard [place] anatomy. POSTERIOR CIRCULATION: No stenosis/occlusion, [...] left sphenoid sinus. HEAD MRA: Normal MRA [facility]. NECK MRA: Normal neck MRA. [...] left sphenoid sinus. HEAD MRA: Normal MRA [facility]. NECK MRA: Normal neck MRA. Narrative 07/01/2024 2:51 AM CDT EXAM: MR BRAIN W/O and W CONTRAST, MRA BRAIN ([place]) W/O CONTRAST, MRA NECK ([place]) W/O and W CONTRAST LOCATION: [facility] DATE: 07/01/2024 INDICATION: vision changes, hx of meningioma resection COMPARISON: None. CONTRAST: 10 mL Gadavist TECHNIQUE: 1) Routine multiplanar multisequence head MRI without and with intravenous contrast. 2) 3D wlpw-fk-gkdqvk head MRA without intravenous contrast. 3) Neck [...] aneurysm, or high flow vascular malformation. Standard [place] anatomy. POSTERIOR CIRCULATION: No stenosis/occlusion, [...] BRAIN W/O and W CONTRAST, MRA BRAIN ([place]) W/OCONTRAST, MRA NECK ([place]) W/O and W CONTRAST LOCATION: [facility] DATE: 07/01/2024 INDICATION: vision changes, hx of meningioma resection COMPARISON: None. CONTRAST: 10 mL Gadavist TECHNIQUE: 1) Routine multiplanar multisequence head MRI without and with intravenouscontrast. 2) 3D xfkj-ag-oehelb head MRA without intravenous contrast. 3) Neck [...] stenosis/occlusion, aneurysm, or high flowvascular malformation. Standard [place] anatomy. POSTERIOR CIRCULATION: No stenosis/occlusion, [...] left sphenoid sinus. HEAD MRA: Normal MRA [facility]. NECK MRA: Normal neck MRA. [...] left sphenoid sinus. HEAD MRA: Normal MRA [facility]. NECK MRA: Normal neck MRA. Narrative 07/01/2024 2:51 AM CDT EXAM: MR BRAIN W/O and W CONTRAST, MRA BRAIN ([place]) W/O CONTRAST, MRA NECK (CAR[place]) W/O and W CONTRAST LOCATION: [facility] DATE: 07/01/2024 INDICATION: vision changes, hx of meningioma resection COMPARISON: None. CONTRAST: 10 mL Gadavist TECHNIQUE: 1) Routine multiplanar multisequence head MRI without and with intravenous contrast. 2) 3D wmfy-fg-djkazo head MRA without intravenous contrast. 3) Neck [...] aneurysm, or high flow vascular malformation. Standard [place] anatomy. POSTERIOR CIRCULATION: No stenosis/occlusion, [...] BRAIN W/O and W CONTRAST, MRA BRAIN ([place]) W/OCONTRAST, MRA NECK ([place]) W/O and W CONTRAST LOCATION: [facility] DATE: 07/01/2024 INDICATION: vision changes, hx of meningioma resection COMPARISON: None. CONTRAST: 10 mL Gadavist TECHNIQUE: 1) Routine multiplanar multisequence head MRI without and with intravenouscontrast. 2) 3D pxym-cm-uptgwv head MRA without intravenous contrast. 3) Neck [...] stenosis/occlusion, aneurysm, or high flowvascular malformation. Standard [place] anatomy. POSTERIOR CIRCULATION: No stenosis/occlusion, [...] left sphenoid sinus. HEAD MRA: Normal MRA [facility]. NECK MRA: Normal neck MRA. us Jeimy Nolen MD IMG MRI ORDERABL ES Final Result * EKG 12 lead (06/30/2024 11:30 PM CDT) Systolic Blood Pressure mmHg RADIOLOGY RESULTS Diastolic Blood Pressure mmHg RADIOLOGY RESULTS Ventricular Rate 55 BPM RAD IOLOGY RESULTS Atrial Rate 55 BPM RADIOLOG Y RESULTS UT Interval 142 ms RADIOLOG Y RESULTS QRS Duration 64 ms RADIOLO GY RESULTS QT 432 ms RADIOLOGY RESULTS QTc 413 ms RADIOLOGY RESULTS P [place] 54 degrees RADIOLOGY RESULTS R AXIS 14 degrees RADIOLOGY RESULTS T [place] 61 degrees RADIOLOGY RESULTS Interpretation ECG Sinus bradycardia Nonspecific ST and T wave abnormality Abnormal ECG No previous ECGs available Confirmed by - EMERGENCY ROOM, PHYSICIAN ([id number]), order editor MICAH PÉREZ ([id number]) on 07/01/2024 7:08:04 AM RADIOLOGY RESULTS 06/30/2024 [...] LAB - BLOOD ORDE TASHI Final Result [facility] [email or web address] Lab (1st floor, no room number) [place] [phone] [place] [address] * Extra Red Top Tube (06/30/2024 8:37 PM CDT) Hold Specimen [facility] 06/30/2024 9:46 PM CDT [facility] Blood STRUCTURE OF RIGHT UPPER LIMB / Unknown Venipuncture / Unknown 06/30/2024 8:37 PM CDT 06/30/2024 8:45 PM CDT us Jeimy Nolen MD LAB - BLOOD ORDE RABKATE Final Result [facility] [address] Lab (1st floor, no room number) [place] [id number] [place] [address] * Extra Blue Top Tube (06/30/2024 8:37 PM CDT) Hold Specimen [facility] 06/30/2024 9:46 PM CDT [facility] Blood STRUCTURE OF RIGHT UPPER LIMB / Unknown Venipuncture / Unknown 06/30/2024 8:37 PM CDT 06/30/2024 8:45 PM CDT Jeiym Nolen MD LAB - BLOOD MASON AKINS Final Result [facility] [address] Lab (1st floor, no room number) [place] [address] * Basic metabolic panel (BMP) (06/30/2024 8:37 PM CDT) [facility] Sodium 140 135 - 145 mmol/L 06/30/2024 [...] LAB - BLOOD ORDZacarias AKINS Final Result [facility] Lab [address] [facility] Lab (1st floor, no room number) [place] [address], [facility] documented in this encounter Visit [...] order) documented in this encounter Care Teams Dials Inspector Relationship Specialty Start Date End Date [facility], [address] [address] PCP - General 06/30/24 documented as of this encounter
--- OUTSIDE RECORDS SUMMARY | 2024-07-04 21:27 | XMS_ITS | Encounter Summary ---
Author Organization [facility] Address [address] [place] [address] Care Team Providers Care Clinical Rehab Specialist Name Role Phone Elsewhere, Pcp Primary Care Provider Unavailabl e Reason for Referral * Outpatient (Routine) - Authorized Specialty Diagnoses / Procedures Referred By Magno isaac Referred To Contact Neurology Riri Harding M.D., Ph.D. [address] [place] [address] Phone: tel: fax: [facility] Referral ID Status Reason Start Date Expiration Date V isits Requested Visits Authorized [id number] Authorized 06/25/2024 12/25/2025 1 1 Scheduling Instructions Schedule a telemedicine visit for 6 weeks from now. Reason for Visit * Appointment Request (Routine) - Closed Specialty Diagnoses / Procedures Referred By Magno t Referred To Contact Neurology Referral ID Status Reason Start Date Expiration Date Visits Re quested Visits Authorized [id number] Closed 06/19/2024 09/19/2025 1 1 Encounter Details Date Type Department Care Team (Late st Contact Info) Description 06/25/2024 3:00 PM CDT Telemedicine Department of Neurology in [place], [place] [address] [place] [phone] Riri Harding M.D., Ph.D. [address] [place] [phone] Parkinsonism Unspecified (HCC) (Primary Dx) Social History Tobacco Use Types Packs/Day Years Used Date Smoking Tobacco: Never Passive Smoke Exposure: Past Smokeless Tobacco: Never Passive Exposure Comments: ildhood exposure. Alcohol Use Standard Drinks/Week Comments Not Currently 0 (1 standard drink = 0.6 oz pur e alcohol) [facility] Utilities Answer Date Recorded In the past 12 months has e [employer], gas, oil, or water [employer] threatened to shut off services in your [...] week 04/04/2022 How often do you attend [facility] or muslim services? More than 4 times per year 04/04/2022 Do you belong to any clubs o r organizations such as orthodoxy groups, unions, fraternal or athletic groups, or [...] and heating? 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 - 06/25/2024 3:00 PM CDT Consult conducted via real-time audio/video technology by Riri Harding M.D., Ph.D. at the [facility] to the patient's home. Mrs. Yoder and [...] AM CDT Telemedicine Department of Neurology in [place], [place] [address] [place] [phone] Riri Harding M.D., Ph.D. [address] [place] [phone] Scheduled Referrals Name Type Priority Associated Diagnoses Orde r Schedule Neurology office visit (clinic) Outpatient Referral Routine Expected: 08/07/2024, Expires: 09/25/2025 documented as of this encounter Visit Diagnoses Diagnosis Parkinsonism Unspecified (HCC)- Primary documented in this encounter Care Teams Clinical Rehab Specialist Relationship Specialty Start Date End Date Elsewhere, Pcp PCP - General Internal Medicine 12/28/22 documented as of this encounter
--- OUTSIDE RECORDS SUMMARY | 2024-07-04 21:27 | XMS_ITS | Encounter Summary ---
Author Organization [facility] Address [address] [place] [address] Care Team Providers Care Inside Technical Sales Representative Name Role Phone Elsewhere, Pcp Primary Care Provider Unavailabl e Reason for Visit * Reason Onset Date Comments Pre-visit Intake 06/24/2024 * Appointment Request (Routine) - Authorized Specialty Diagnoses / Procedures Referred By Magno t Referred To Contact Neurology Referral ID Status Reason Start Date Expiration Date V isits Requested Visits Authorized [id number] Authorized 06/19/2024 09/19/2025 1 1 Encounter Details Date Type Department Care Team (Latest Contact Info) Description 06/24/2024 3:30 PM CDT Clinical Communication Virtual Review in [address] [phone] Pre-visit Intake Social History Tobacco Use Types Packs/Day Years Used Date Smoking Tobacco: Never Passive Smoke Exposure: Past Smokeless Tobacco: Never Tobacco Cessation:Counseling Given: Not Answered Passive Exposure Comments:Childhood exposure. Alcohol Use Standard Drinks/Week Comments Not Currently 0 (1 standard drink = 0.6 oz pur e alcohol) [facility] Utilities Answer Date Recorded In the past 12 months has e electric, gas, oil, or water [employer] threatened to shut off services in your [...] often do you attend chur ch or yazidism services? More than 4 times per year 04/04/2022 Do you belong to any clubs o r organizations such as christianity groups, unions, fraternal or athletic groups, or [...] hard at all 08/26/2022 [facility] of Occupat ional Health - Occupational Stress [...] your living situation today? I have a [facility] place to live 07/20/2023 Education Answer Date Recorded What is the highest level of school you have completed or the highest degree you have received? 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 200 [place] [address] documented as of this encounter Visit Diagnoses Not on filedocumented in this encounter Care Teams Inside Technical Sales Representative Relationship Specialty Start Date End Date Elsewhere, Pcp PCP - General Internal Medicine 12/28/22 documented as of this encounter
--- OUTSIDE RECORDS SUMMARY | 2024-07-04 21:28 | XMS_ITS | Clinical Summary ---
Author Organization [facility] Address [address] [place] [address] Care Team Providers Care Carder Blankets Name Role Phone Elsewhere, Pcp Primary Care Provider Unavailabl e Source Comments Patient records contain information from all sites at [facility]. For routine questions regarding patient records, call [phone] during business hours, M-F 8:00 AM - 5:00 PM Central Time. Record requests for emergency care only can be directed to [phone] at any time.[facility] Allergies No known active allergies Medications [...] Description 06/26/2024 Refill Department of Neurology in [place], [place] [address] [place] [phone] Riri Harding M.D., Ph.D. Med Refill 06/26/2024 Refill Division of Gastroenterology in [place], [place] [address] [place] [address] Buddy Ceja M.D. Med Refill 06/25/2024 3:00 PM CDT Telemedicine Department of Neurology in [place], [place] [address] [place] [address] Riri Harding M.D., Ph.D. Parkinsonism Unspecified (HCC) (Primary Dx) 06/24/2024 3:30 PM CDT Clinical Communication Virtual Review in [place], [place] [address] [place] [address] Pre-visit Intake from Last 3 Months Family [...] 0.6 oz pur e alcohol) [facility] [employer]ience Partnersities Answer Date Recorded In the past 12 months has e [employer], gas, oil, or water [employer] threatened to shut off services in your [...] any clubs o r organizations such as taoist groups, unions, fraternal or athletic groups, or [...] your living situation today? I have a [facility] place to live 07/20/2023 Education Answer Date Recorded What is the highest level of school you have completed or the highest degree you have received? 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 [address] [place] [address] Health Maintenance Due Date Last Done Comments [...] this topic Medical Devices Explanted Type Area Hanging Flags Decorator Device Identifier Shelf Expiration Date Model / Serial / Lot Clp Jul Lgs Loree 9.0 - [id number] Explanted:Qty : 1 on 12/28/2022 at [facility] Hardware e.g. pins/screws/ rods [employer] [id number] 09/30/2027 MCS20 / / [id number] Clp Jul Lgc Loree Dowling [facility] 9.75 - [id number] Explanted:Qty : 1 on 12/28/2022 at [facility] Hardware e.g. pins/screws/ rods [employer] MSM20 / / Procedures Procedure Name Priority Date/Time Associated Diagnosis Comments COMPREHENSIVE METABOLIC PANEL, S/P Routine 09/27/2023 8:54 AM CDT Gammopathy Monoclonal Nonspecific THYROID FUNCTION CASCADE, S Routine 08/19/2014 9:05 AM CDT HEPATITIS B SURFACE ANTIGEN Routine 06/15/2014 10:28 AM CDT from Last 3 Months or Most Recently Relevant to Health Maintenance Results * Thyroid Function [place] (08/19/2014 9:05 AM CDT) TSH, Sensitive 0.5 0.3 - 4.2 MIU/L [facility] 08/19/2014 9:05 AM CDT 08/19/2014 9:05 AM CDT us Jori Harley LAB BLOOD ADD-ON Final Result [facility] [address] [place], [place] [address] * Hepatitis B Surface Antigen (06/15/2014 10:28 AM CDT) HBs Antigen, S Negative Negative [facility] 06/15/2014 10:2 8 AM CDT 06/15/2014 10:28 AM CDT Jori Harley LAB MICROBIOLOGY - BLOOD ORDER GILLIAN Final Result [facility] [address] [place] [address], [facility] from Last 3 Months or Most Recently Relevant to Health Maintenance Insurance [facility] Care Teams Carder Blankets Relationship Specialty Start Date End Date Elsewhere, Pcp PCP - General Internal Medicine 12/28/22
--- OUTSIDE RECORDS SUMMARY | 2024-07-04 21:28 | XMS_ITS | Clinical Summary ---
Author Organization [facility] Address [address] [place] [address] Care Team Providers Care Unit Receptionist Name Role Phone Savannah Schafer RN, BSN Unavailable [phone] Mayela Smith MD Primary Care Provider [phone] Allergies No known active allergies Medications MULTIVITAMIN [...] Disease Mother age 77. H ad prior PA. 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 Not on file [...] 36.7 C (98.1 F) 03/06/2014 1:17 PM CONSERVATION POLICY ANALYST Respiratory Rate 20 03/02/2014 9:39 AM CONSERVATION POLICY ANALYST Oxygen Saturation 97% 12/25/2023 3:04 PM CDT Inhaled Oxygen Concentration - - Weight 61.7 kg (136 lb) 12/25/2023 3:04 PM CDT Height 158.8 cm (5' 2.52) 03/02/2014 9:39 AM CS T Body Mass Index 24.46 03/02/2014 9:39 AM CONSERVATION POLICY ANALYST Plan of Treatment Health Maintenance Due Date [...] ANTI HCV Early AM 02/09/2014 4:30 AM CONSERVATION POLICY ANALYST XR MAMMO BILAT SCREEN FFDM (IA) Routine 08/16/2011 9:16 AM CDT Other screening mammogram LIPID PANEL Routine 06/15/2008 7:26 AM CDT Screening for Lipoid Disorders XR DXA BONE DENSITY 2 SITES AXIAL Routine 06/04/2007 8:47 AM CONSERVATION POLICY ANALYST Screening Osteoporosis from Last 3 Months or Most Recently Relevant to Health Maintenance Results * ANTI HCV (02/09/2014 4:30 AM CONSERVATION POLICY ANALYST) HEPATITIS C ANTIBODY Non-Reacti ve Non-Reacti ve 02/09/2014 5:40 AM CONSERVATION POLICY ANALYST [facility] Blood specimen (specimen) BLOOD SPECIMEN / Unknown Venipuncture / Unknown 02/09/2014 4:30 AM CONSERVATION POLICY ANALYST 02/09/2014 4:53 AM CONSERVATION POLICY ANALYST Narrative [facility] - 02/09/2014 5:40 AM CONSERVATION POLICY ANALYST Antibodies to HCV not detected; does not exclude the possibility of exposure to HCV. us Dilshad Jacome MD SEND OUTS Final Re sult [facility] [address] [place] [address], [place] * XR MAMMO BILAT SCREEN FFDM [...] of Computer-Aided Detection. COMPARISON FILMS: Yes 07/04/10 [facility] 06/28/09 [facility] FINDINGS: Mammographically, the breast tissue [...] of Computer-Aided Detection. COMPARISON FILMS: Yes 07/04/10 [facility] 06/28/09 [facility] FINDINGS: Mammographically, the breast tissue [...] CDT) CHOLESTEROL,TOTAL 150 110 - 199 mg/dL [facility] TRIGLYCERIDES 78 <150 mg/dL [facility] HDL CHOLESTEROL 49 >40 mg/dL [facility] CHOL/HDL RATIO 3.06 <4.51 [facility] LDL CHOLESTEROL 85 <131 mg/dL [facility] PATIENT STATUS Fasting [facility] Blood specimen (specimen) BLOOD SPECIMEN / Unknown 06/15/2008 7:26 AM CDT 06/15/2008 7:20 AM CDT Priya Menjivar CHEMISTRY Final R esult [facility] [address] [place] [address] * XR DEXA BONE DENSITY 2 SITES (06/04/2007 8:47 AM CONSERVATION POLICY ANALYST) Anatomical Region Laterality Modality Spine, HIPS, HIPL, HIPR Other 06/04/2007 8:47 AM CONSERVATION POLICY ANALYST Narrative 06/07/2007 1:15 PM CONSERVATION POLICY ANALYST Please see scanned document for results of this study. Procedure Note Priya Menjivar D - 06/07/2007 Please see scanned document for results of this study. Priya Menjivar DEXA Final R esult from Last 3 Months or Most Recently Relevant to Health Maintenance Insurance [employer] [place] [address] BLUE CROSS MEDICARE ADVANTAGE MR Advance Directives * Full Code (Latest Code Status on File) Date Activated Date Inactivated Comments 02/07/2014 2:44 PM 02/20/2014 6:50 PM Care Teams Unit Receptionist Relationship Specialty Start Date End Date Mayela Smith MD [address] [place] [address] PCP - General Internal Medicine 12/25/23July, Savannah Hernandez RN, BSN [address] [address] Switch Inspector Oncology 03/03/14
--- NOTE | 2024-07-04 22:09 | ED_ITS ---
HPI - Eye Problem General Date Seen: 07/04/24 Chief complaint: Eye Problems Stated complaint: blurry vision, Black dots Time Seen by Provider: 07/04/24 20:31 Source: patient and family Mode of arrival: ambulatory Limitations: no limitations History of Present Illness HPI Narrative: Patient is a delightful 68-year-old female who suffers from Parkinson's presents here with her daughter for evaluation of we be vision for the last 2 days. This occurs in both of her eyes, and occur tonight will she was at an event, lasted for approximately 5 minutes and then returned to normal. She does have some head pressure and description of some pain in her neck, but attributes this to her Parkinson's which is been ongoing, and recent increase in her medications strength. She had this, on the 30 of June and went to the [facility] Emergency Department there they did MRI MRA of her head neck, with no acute abnormalities. There was evidence of at meningioma, that was not acute. The re st of her labs including EKG were normal, no evidence of atrial fibrillation she was discharged, to follow up with Ophthalmology she saw Dr. Beach from Ophthalmology you said that her eyes were normal there is no acute problem. She presents tonight to with some anxiety over this issue that is been ongoing, she does remember back that approximately 3 years ago she did have some isolated episodes of this. chief complaint: vision change Onset (ago): minute(s) Onset description: sudden Duration: intermittent Location: both eyes Eye Symptoms: blurry vision Place: school Mechanism: none Severity: moderate Associated symptoms: none Treatments Prior to Arrival: none Related Data Home Medications ?Medication ?Instructions ?Recorded ?Confirmed carbidopa 25 mg-levodopa 100 mg 1 tab PO TID 07/11/22 06/30/24 tablet ursodiol 300 mg capsule 300 mg PO TID 08/17/22 06/30/24 melatonin 5 mg capsule 5 mg PO QHS 10/19/22 06/30/24 folic acid-vit B6-vit B12 2.5 1 tab PO QDAY 09/20/23 06/30/24 mg-25 mg-1 mg tablet (WesTab One) Previous Rx's ?Medication ?Instructions ?Recorded levothyroxine 75 mcg tablet 75 mcg PO DAILY #90 tabs 10/22/23 Allergies Allergy/AdvReac Type Severity Reaction Status Date / Time No Known Drug Allergies Allergy Verified 06/30/24 16:59 Review of Systems Status of ROS: Reports: 10 or more systems reviewed and unremarkable except as noted in History and below PFSH PFS Medical History History of CMV ?Z86.19 - Personal history of other infectious and parasitic diseases (ICD- 10) Meningioma ?D32.9 - Benign neoplasm of meninges, unspecified (ICD-10) Liver lesion ?K76.9 - Liver disease, unspecified (ICD-10) Mass of parapharyngeal space ?R22.1 - Localized swelling, mass and lump, neck (ICD-10) History of ARDS ?Z87.09 - Personal history of other diseases of the respiratory system (ICD- 10) Internal hemorrhoid, bleeding ?K64.8 - Other hemorrhoids (ICD-10) Surgical History Intraductal papilloma of left breast ?D24.2 - Benign neoplasm of left breast (ICD-10) Family History Uncle Parkinson's disease Social History What is your current living situation?: I presently have a place to live Problems where you live: no known problems In the past 12 months, utilities in danger of being shut off: no In past 12 months, lack of transportation kept you from medical appts, meetings, work, or getting things needed for daily living: no In the past 12 mos, have been you worried that your food would run out before you had money to buy more?: never true In the past 12 mos, the food you bought just didn't last and you didn't have money to buy more?: never true Smoking Status: Never smoker Do you use any of these nicotine containing products: None How often do you have a drink containing alcohol: never AUDIT-C Alcohol total score: 0 Non-prescribed substance use: denies use How often does anyone, including family, friends and others, physically hurt you : never How often does anyone, including family, friends and others, insult or talk down to you: never How often does anyone, including family, friends and others, threaten you with harm: never How often does anyone, including family, friends and others, scream or curse at you: never service: No Exam Narrative: Exam Narrative: Patient is seen in room 6, she appears slightly anxious but very nice lady, vital signs are all listed, with a slight elevation of her blood pressure. She is speaking to me normally in her vision is back to baseline, pupils are equal round reactive to light there is no nystagmus fundi appear normal, no redness swelling is noted around her eye, TMs are normal her neck is supple there is no carotid bruits in she moves through full range of motion her NIH screen is 0. Chest is clear heart sounds are normal no clicks murmurs or gallops her abdomen is soft, she is able to sit up and walk around the room with no problems at all. Distal and proximal muscle strength is normal is normal sensation. I did review her notes from her visit to [facility] on the 30 of June, they also also checked your intra-ocular pressures which were normal this is also read done at the [facility]. Stroke Neurology was consulted on the not believe this was related to stroke. I reassured her that I could find nothing going on here, I wondered about 2 things whether this was an atypical migraine headache, or migraine variant. With just the aura. The other thing I thought his is possibly related to the Parkinson's meds is approximately 30-40% a Parkinson's patient is on carbidopa developed some sort of hallucinations. We left it with her following up with her neurology team at [facility], sending him a note, return as needed, reassurance given. Const: Vital Signs, click to edit/add: Vital Signs - 24 hr 07/04/24 20:33 Temperature 98.1 F Pulse Rate [Left P ulse Oximeter] 56 L Respiratory Rate 18 Blood Pressure [Ri ght Upper Arm] 178/98 H Pulse Oximetry 98 Oxygen Delivery Me thod Room Air Documenting provider has reviewed patient's vital signs: yes Course Vital Signs Vital signs: Initial Vital Signs Temperature 98.1 F 07/04/24 20:33 Temperature Source Temporal Artery Scan 07/04/24 20:33 Pulse Rate 56 L 07/04/24 20:33 Pulse Rhythm Regular 07/04/24 20:33 Respiratory Rate 18 07/04/24 20:33 Blood Pressure 178/98 H 07/04/24 20:33 Blood Pressure Mean 124 H 07/04/24 20:33 Blood Pressure Position Sitting 07/04/24 20:33 Pulse Oximetry 98 07/04/24 20:33 Oxygen Delivery Method Room Air 07/04/24 20:33 Vital Signs Temperature 98.1 F 07/04/24 20:33 Pulse Rate 56 L 07/04/24 20:33 Respiratory Rate 18 07/04/24 20:33 Blood Pressure 178/98 H 07/04/24 20:33 Pulse Oximetry 98 07/04/24 20:33 Oxygen Delivery Method Room Air 07/04/24 20:33 Temperature 98.1 F 07/04/24 20:33 Pulse Rate 56 L 07/04/24 20:33 Respiratory Rate 18 07/04/24 20:33 Blood Pressure 178/98 H 07/04/24 20:33 Pulse Oximetry 98 07/04/24 20:33 Oxygen Delivery Method Room Air 07/04/24 20:33 Discharge Plan Discharge Clinical Impression: Vision changes, Parkinson disease Patient Disposition: Home w/ Parent or Adult Condition: Stable Instructions: Parkinson Disease (ED), Blurred Vision (ED) Additional Instructions: Home, rest, follow up with a call to Neurology, for this. Again I do not see any evidence of abnormality new had a full workup for this I do not know what else I can not at this point, in the fact that her back to normal. Reassurance is given. Activity Level: Light activity Prescriptions: No Action levothyroxine 75 mcg tablet 75 mcg PO DAILY Qty: 90 3RF melatonin 5 mg capsule 5 mg PO QHS ursodiol 300 mg capsule 300 mg PO TID WesTab One 2.5-25-1 mg tablet 1 tab PO QDAY carbidopa-levodopa 25-100 mg tablet 1 tab PO TID Follow Up/Referrals: Mayela Smith MD [Primary Care Provider] - Stand Alone Forms: [employer] Info Instructions
== END 2024-07-04 21:26 | disposition home or self-care (01) ==
LOC: ED 21:25
PROVIDERS: Emergency Provider Family Medicine; PCP Internal Medicine
DX: H53.8 Other visual disturbances (principal); G20.C Parkinsonism, unspecified
CPT/HCPCS: 99282; 99283; 99284

== ENCOUNTER 2024-07-14 14:00 | Outpatient (RCR) | payer MEDICARE, SELFPAY ==
--- NOTE | 2024-04-16 10:57 | PT.OPEX ---
PT [facility] Outpatient Eval PT [facility] Outpatient Eval Start: 04/16/24 07:55 Freq: Status: Active Protocol: Document 04/16/24 07:55 ENM (Rec: 04/16/24 08:35 ENM [id number]) E-signed By Rachael Jimenez, DPT Physical Therapy Outpatient Evaluation Insurance Information Recert Due Date 07/15/24 Insurance Name Medicare B Medical Diagnosis other specified dorsopathies, cervical region headache, unspecified tension-type headache, unspecified, not intractable Treating Diagnosis muscle weakness impaired posture neck pain Imaging Report Information 1. No radiographic evidence of acute osseous injury. 2. Mild degenerative changes at C5-6 and C6-7. Referring MD Young Subjective Subjective Patient presents to PT for complaint of pressure in head/ neck. Was diagnosed with Parkinson's about a year ago, started with tremors in their hands. Takes parkinsons medication 3x a day. She does not have pain but sometimes feels a pressure in the head. Denies any specific injury. It feels like their head is wobbling. Denies a sensation of the room spinning. Blood pressure has been good. Other parkinsons symptoms are screaming at night and dragging of feet. Is trying to go to the [facility] regularly mainly doing cardio and some strength. Stopped doing some of the barbell exercises due to neck pain. When it started: 2 weeks ago Describes it as: movement of the head and pressure Timing: comes on at some point during the day Location: neck and base of skull Irritability: mild Severity: mild PMHx: neck surgery on right side ~1 year ago Pain Comments aggravating: sometimes doing crunches in her exercise classes Current Work Status Retired Objective Other/Pertinent Objective Cervical AROM: cervical flexion: 32 with stretch extension: 49 SB: L 32 R 34 with tightness Rot: L 55 R 60 Shoulder AROM: Flexion: WNL Abduction: WNL Strength: DNF: 21 s shoulder flexion: L 4/5 R 4+/5 shoulder abduction: L 4/5 R 4+ /5 shoulder IR: 4+/5 B shoulder ER: 4-/5 B middle trapezius 4/5 B lower trapezius 4-/5 B Palpation/joint mobility: + tightness of L UT, suboccipitals Posture: Patient tends to rest with increased cervical protraction Assessment Assessment/Impression Patient is a 68 year old female presenting with complaint of pressure in head and neck pain. Symptoms started about 2 weeks ago as a pressure at the base of the skull. Patient was very worried that this was due to her Parkinsons. Primary Parkinsons symptom is a tremor which is being managed with medication. They stay active at the [facility] doing classes 5-6 days a week. She is not sure what causes her symptoms but sometimes it can be aggravated with performing crunches. Upon assessment therapist unable to elicit true complaint of pressure for the patient. Notable impairments include increased upper trap and suboccipital tightness as well as increased cervical protraction at rest. They display weakness in shoulder ER as well as middle and lower trapezius. Deep neck flexor endurance limited to 21 seconds. Symptoms are likely muscular due to overuse and strain as they take time to come on. [place] would greatly benefit from skilled PT to address impairments stated above in order to perform all household duties and recreational activities without significant discomfort or difficulty. Primary Functional Limitations none at this time Plan of Care Rehabilitation Potential Good Physical Therapy Goals In 4-6 visits: 1. Patient will be IND with HEP and self management of symptoms 2. Patient will make it through the day without complaint of pressure 4/7 days of the week 3. Patient will improve global scapular and shoulder strength to at least 4+/5 to better support cervical spine with daily activities 4. Patient will be able to perform crunches in fitness class without discomfort to decrease risk or reoccurrence of symptoms Coordination/Communication With Referral Source Treatment Plan/Direct Interventions Electrical Stimulation,Heat, Ice/Cold/Vasopneumatic,Joint Mobilization,Manual Therapy, Neuromuscular Re-ed,Self-Care/ Home Management,Therapeutic Activities,Therapeutic Exercises,Traction (Mechanical ) Frequency/Duration 1x a week for 4-6 visits Patient Will Be Discharged From Therapy Completion of LTG(s), Independent w/HEP Evaluation Billing Untimed Code Treatment Minutes 22 Complexity Low Certification Information Initial Certification Date 04/16/24 Ending Certification Date 07/15/24 Provider Signature Required Yes Provider Signature Shows Agreement With POC & Medical Necessity Physician NPI Number Write NPI# Here Physician Comment/Change : Physician Signature & Date Requested Please Sign/Date Here
== END 2024-11-11 23:59 | disposition home or self-care (01) ==
PROVIDERS: PCP Internal Medicine; Visit Provider Family Medicine
DX: M53.82 Other specified dorsopathies, cervical region (principal); G44.209 Tension-type headache, unspecified, not intractable; M54.2 Cervicalgia; Z51.89 Encounter for other specified aftercare
CPT/HCPCS: 97110; 97140; 97161; 97530

== ENCOUNTER 2024-11-11 07:40 | Outpatient (CLI) | payer MEDICARE, SELFPAY | END 2024-11-11 07:41 | disposition home or self-care (01) | LOC: NFLDREF 11-14 14:38 | PROVIDERS: PCP Internal Medicine; Referring Provider Internal Medicine; Visit Provider Internal Medicine | DX: M85.80 Other specified disorders of bone density and structure, unspecified site (principal); E03.9 Hypothyroidism, unspecified; Z13.1 Encounter for screening for diabetes mellitus; Z13.6 Encounter for screening for cardiovascular disorders | CPT/HCPCS: 80061; 82306; 82947; 84443 ==

== ENCOUNTER 2024-12-02 12:41 | Outpatient (CLI) | payer MEDICARE, SELFPAY ==
[2024-12-02 13:40] VITALS: BP 128/54; PULSE 70; RESP 16
--- NOTE | 2024-12-02 13:46 | W.PM.STED ---
Stress Test Note Date Date Seen: 12/02/24 Date of test: 12/02/24 Providers Primary care provider: Mayela Smith Stress test physician: Ashlee Javier Stress Test Note Stress test ordered: Stress Echo Indication for test: Dyspnea Stress test medicine: None Results discussion: Resting EKG: Sinus rhythm, 61 beats per minute. Premature atrial contraction. Resting blood pressure: 144/92 Stress test: Patient is consented on ordered stress test exercise treadmill stress echo. Patient agrees to proceed. Patient followed standard Alen protocol on the treadmill. Patient exercised to 10 minutes 31 seconds, stopping because her legs were tired. This was equivalent to 12.1 Mets. She had a maximum heart rate of 132 beats per minute which was 102% of a calculated target heart rate of 129. Her blood pressure did go down in exercise but she was not symptomatic with this. At 5 minutes 31 seconds she did have a registered blood pressure 102/60 with a heart rate of 104. She was not having symptoms with this and was able to continue exercising. She had no lightheadedness, no chest pain, no shortness of breath complicating this stress test. In early recovery it 29 seconds can see some mild ST segment flat depression with flipped T-waves in V4 and V5, difficult to seen V6 due to artifact. This was the only point it was seen, may just be about 1 mm in V5, more flipped T-waves in lead for without diagnostic ST segment depression. I do not feel that this technically qualifies for diagnostic EKG changes. Await echo images to couple this for a full formal diagnostic. Patient certainly did seem to have some lability with her blood pressure and if there are no echo changes indicative of ischemia, consideration for vasomotor changes with her neurologic disease might be considered. A rate pressure product of 16,368 was calculated. Impression: Subjectively negative, objectively negative EKG portion of this stress test. Follow up suggested: Patient is discharged home in stable condition. Await echo images as read by Cardiology to couple this for a full formal diagnostic test. Patient knows she should hear from her ordering physician Dr. Smith on the test results.
== END 2024-12-02 13:56 | disposition home or self-care (01) ==
LOC: STRESS 12:42
PROVIDERS: PCP Internal Medicine; Visit Provider Internal Medicine
DX: R06.09 Other forms of dyspnea (principal); R07.89 Other chest pain
CPT/HCPCS: 93016; 93325; 93351

== ENCOUNTER 2025-01-15 13:22 | Outpatient (CLI) | payer MEDICARE, SELFPAY ==
--- NOTE | 2025-01-15 13:40 | CRLHL7_ITS ---
For Patients: As a result of the Century Cures Act, medical imaging exams and procedure reports are released immediately into your electronic medical record. You may view this report before your referring provider. If you have questions, please contact your health care provider. INDICATION: BILATERAL SCREENING MAMMOGRAM, ASYMPTOMATIC 69 Y/O FEMALE COMPARISON: 01/10/2024, 01/08/2023, 12/30/2021 TECHNIQUE: Digital mammogram in CC and MLO projections including computer-aided detection (CAD) and tomosynthesis. BREAST COMPOSITION: The breasts are heterogeneously dense, which may obscure small masses. FINDINGS: No suspicious findings. ASSESSMENT: BI-RADS 1 Negative RECOMMENDATION: Annual screening mammogram. A lay language report of this examination will be provided to the patient. Dictated by: Keeley Chairez MD @ 01/17/2025 07:49:52 (Electronically Signed)
== END 2025-01-15 13:23 | disposition home or self-care (01) ==
LOC: MAMMO 13:23
PROVIDERS: PCP Internal Medicine; Visit Provider Internal Medicine
DX: Z12.31 Encounter for screening mammogram for malignant neoplasm of breast (principal); R92.333 Mammographic heterogeneous density, bilateral breasts
CPT/HCPCS: 77063; 77067